=== PATIENT | male | born 1945 | race Caucasian/White ===

== ENCOUNTER 2017-02-14 19:07 | Observation (INO) | payer OTHER ==
[~2017-02-14] VITALS: Ht 180.3 cm; Wt 94.3 kg
[~2017-02-14 19:07] MED LIST: ARICEPT10 M1 PO; ASPIRIN EC81 M1 PO; ATORVASTATIN CA80 M1 PO; BUPROPION XL300 M1 PO; CLARITIN10 M1 PO; FLUDROCORTISON0.1 M1 PO; LIPITOR80 MG PO; MELATONIN3 M4 PO; NEUPRO1 MG/24 HR TD; NOVOLOG100 UNIT/2; Nitro-Bid TOP; OXYCODONE HCL5 M2 PO; PANTOPRAZOLE SO40 M1 PO; SPIRIVA18 MCG INH; TOPROL XL 25MG25 MG PO; TOPROL XL25 M1 PO; XALATAN2.5 ML OU
--- NOTE | 2017-02-14 19:33 | NUR ---
71M WITH SOB UNRELIEVED BY ALBUTEROL, SPIRIVA AND SYMBACORT. REPORTS HAVING AN UNCOMFORTABLE FEELING IN "THE W SHAPE OF MY CHEST" THAT FEELS HOT. REPORTS SYMPTOMS HAVE BEEN ONGOING FOR 3-4 DAYS. REPORTS WORSENING FATIGUE AND INABILITY TO GET AROUND AT HOME. HX PARKINSONS AND COPD
--- NOTE | 2017-02-14 20:09 | ED DYSPNEA/ASTHMA COMPLAINT ---
History of Present Illness General Chief Complaint: Dyspnea (COPD, CHF, Other) Stated Complaint: SOB, HX OF COPD Source: patient Exam Limitations: no limitations Vital Signs & Intake/Output Vital Signs & Intake/Output Vital Signs Date Time Temp Pulse Resp B/P B/P Pulse O2 O2 Flow FiO2 Mean Ox Delivery Rate 02/14 2223 97.6 57 18 127/60 97 Nasal 2.5L Cannula 02/15 2220 Room Air 02/14 2122 59 118/67 02/15 2116 100/57 02/14 2115 98 02/14 2107 95/56 02/14 1925 97.3 62 16 160/84 95 Room Air Allergies Coded Allergies: morphine (Mild, RASH, ITCHY 02/14/17) Reconcile Medications Albuterol Sulfate (Proair Hfa) 90 MCG HFA.AER.AD 2 PUF INH PRN DYSPNEA ( Reported) Amlodipine (Norvasc) 2.5 MG TABLET 1 TAB PO DAILY HEART/BP (Reported) Aspirin (Ecotrin*) 81 MG TABLET.DR 1 TAB PO DAILY HEART/BLOOD (Reported) Atorvastatin Calcium 80 MG TABLET 0.5 TAB PO 1700 CHOLESTEROL (Reported) Budesonide/Formoterol Fumarate (Symbicort 80-4.5 Mcg Inhaler) 80 MCG-4.5 MCG/ ACTUATION HFA.AER.AD 2 PUF INH PRN SOB (Reported) Bupropion HCl (Bupropion XL) 300 MG TAB.ER.24H 1 TAB PO QAM DEPRESSION ( Reported) Donepezil HCl (Aricept) 10 MG TABLET 1 TAB PO QAM MEMORY (Reported) Fludrocortisone Acetate 0.1 MG TABLET 0.5 TAB PO DAILY ORTHOSTATIC HYPOTENSION (Reported) Insulin Aspart (Novolog) (Unknown Strength) VIAL (Unknown Dose) DIABETES - PUMP (Reported) Lactobacillus Acidophilus (Probiotic) 10 BILLION CELL CAPSULE 1 CAP PO DAILY PROBIOTIC (Reported) Latanoprost (Xalatan) 0.005 % DROPS 1 GTT OU QPM GLAUCOMA (Reported) Loratadine (Claritin) 10 MG TABLET 1 TAB PO DAILY ALLERGIES (Reported) Melatonin 3 MG TABLET 2 TAB PO QPM SLEEP (Reported) Metoprolol Succ XL (Toprol XL) 25 MG TAB.ER.24H 0.5 TAB PO QAM BP (Reported) Oxycodone HCl 5 MG CAPSULE 1 CAP PO Q6HR PRN PAIN Pantoprazole Sodium 40 MG TABLET. 1 TAB PO DAILY GI (Reported) Rotigotine (Neupro) 1 MG/24 HOUR PATCH.TD24 1 PATCH TOP QAM PARKINSONS ( Reported) Tiotropium [place] (Spiriva) 18 MCG CAP.W.DEV 1 CAP INH QAM COPD (Reported) Triage Note: 71M WITH SOB UNRELIEVED BY ALBUTEROL, SPIRIVA AND SYMBACORT. REPORTS HAVING AN UNCOMFORTABLE FEELING IN "THE W SHAPE OF MY CHEST" THAT FEELS HOT. REPORTS SYMPTOMS HAVE BEEN ONGOING FOR 3-4 DAYS. REPORTS WORSENING FATIGUE AND INABILITY TO GET AROUND AT HOME. HX PARKINSONS AND COPD Triage Nurses Notes Reviewed? yes Onset: Gradual Duration: day(s):, waxing and waning Timing: recent history Severity: moderate Activities at Onset: "Symptoms began after I laquered the floor a week ago." Prior Episodes/Possible Cause: occasional episodes Modifying Factors: Improves With: rest, other ("cool air helps"). Associated Symptoms: shortness of breath. HPI: 71 yo gentleman h/o copd, mi, cad, diabetes, parkinson's presents with one week of progressive dyspnea and a "W" shaped sensation of burning across the front of his chest. He is unable to characterize a number "because it is not pain... it's really burning." "When I take a deep breath, it feels like only 1/3 of my breath gets in." He notes that he gets very winded with minimal exertion. Past History Travel History Traveled to [place] past 21 day No Medical History Any Pertinent Medical History? 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 No Review of Systems Review of Systems Constitutional: Reports: no symptoms. EENTM: Reports: no symptoms. Respiratory: Reports: no symptoms. Cardiovascular: Reports: no symptoms. GI: Reports: no symptoms. Genitourinary: Reports: no symptoms. Musculoskeletal: Reports: no symptoms. Skin: Reports: no symptoms. Neurological/Psychological: Reports: no symptoms. Hematologic/Endocrine: Reports: no symptoms. Immunologic/Allergic: Reports: no symptoms. All Other Systems: Reviewed and Negative Physical Exam Physical Exam General Appearance: well developed/nourished, mild distress Head: atraumatic, normal appearance Eyes: Bilateral: normal appearance. Ears, Nose, Throat: normal pharynx, normal ENT inspection Neck: normal inspection, supple, full range of motion Respiratory: chest non-tender, diminished breath sounds Cardiovascular: regular rate/rhythm Gastrointestinal: normal bowel sounds, soft, non-tender Extremities: normal inspection, normal capillary refill, normal range of motion, no edema Neurologic/Psych: no motor/sensory deficits, awake, alert, oriented x 3 Skin: intact, normal color, warm/dry Core Measures ACS in differential dx? Yes ASA ordered for poss ACS? Yes-ordered Severe Sepsis Present: No Septic Shock Present: No Progress Differential Diagnosis: asthma, AMI, bronchitis, costochondritis, CHF, COPD, musculoskeletal pain, pulmonary embolism, pneumonia Plan of Care: Orders Procedure Date/time Status Nothing by Mouth 02/15 B Active Patient Data 02/14 2235 Active Saline Lock 02/[address] in observation 02/14 2218 Active Misc Message 02/14 2218 Active ED Holding Orders 02/14 2218 Active Vital Signs 02/14 2218 Active Code Status 02/14 2218 Active Intake & Output 02/14 2155 Active TROPONIN LEVEL 02/14 1925 Complete D-DIMER 02/14 1925 Complete COMPREHENSIVE METABOLIC PANEL 02/14 1925 Complete CBC WITHOUT DIFFERENTIAL 02/14 1925 Complete EKG 02/14 191 Active Current Medications Sig/Luiza Start time Last Medication Dose Stop Time Status Admin Prednisone 40 MG ONCE ONE 02/14 2230 UNVr 02/14 2258 Laboratory Tests 02/14/17 2020: Anion Gap 9, Estimated GFR > 60, BUN/Creatinine Ratio 21.8, Glucose 299 H, Calcium 9.3, Total Bilirubin 0.8, AST 23, ALT 41, Alkaline Phosphatase 74, Troponin I < 0.01, Total Protein 7.3, Albumin 4.2, Globulin 3.1, Albumin/ Globulin Ratio 1.4, D-Dimer High Sensitivty 339 H, CBC w Diff NO MAN DIFF REQ, RBC 4.63 L, MCV 94.6 H, MCH 31.3 H, RDW 13.7, MPV 9.0, Gran % 67.6, Lymphocytes % 21.4, Monocytes % 7.9, Eosinophils % 3.0, Basophils % 0.1, Absolute Granulocytes 3.7, Absolute Lymphocytes 1.2, Absolute Monocytes 0.4, Absolute Eosinophils 0.2, Absolute Basophils 0, PUBS MCHC 33.1 Diagnostic Imaging: Viewed by Me: Radiology Read. Discussed w/RAD: Radiology Read. Radiology Impression: PATIENT: REYNALDO LORA PRESENT AGE: 71 PATIENT ACCOUNT NO: [id number] : 47 LOCATION: [facility] ORDERING PHYSICIAN: AYAKA MONTGOMERY MD SERVICE DATE: 02/14/17 EXAM TYPE: RAD - XRY-PORTABLE CHEST XRAY EXAMINATION: XR PORTABLE CHEST CLINICAL INFORMATION: Dyspnea. COMPARISON: Chest 08/13/2015 TECHNIQUE: Portable frontal view of the chest was obtained. 7:36 PM FINDINGS: Linear atelectasis and/or infiltrate at the right costophrenic angle. There is linear scarring at left lung base which is unchanged since 08/13/2015. No pulmonary vascular congestion. No pleural effusion. Heart size is normal. The cardiac and mediastinal contours are normal. Orthopedic plate and screw at lower cervical spine. IMPRESSION: Linear atelectasis and/or infiltrate at right costophrenic angle. DICTATED BY: NICOLE LOPEZ MD DATE/TIME DICTATED:02/14/172028 OUTSIDE CUTTER:LAYTON DATE/TIME TRANSCRIBED:02/14/172028 CONFIDENTIAL, DO NOT COPY WITHOUT APPROPRIATE AUTHORIZATION. <Electronically signed in Other Vendor System> SIGNED BY: NICOLE LOPEZ MD 02/14/172033, ct chest angio... NO PE...atelectasis... full report below. CXR Impression: linear atelectasis... see above for full report. Initial ED EKG: normal axis, normal intervals, normal p-waves, normal QRS complex, normal sinus rhythm Comments: PATIENT: REYNALDO LORA PRESENT AGE: 71 PATIENT ACCOUNT NO: [id number] : 47 LOCATION: [facility] ORDERING PHYSICIAN: AYAKA MONTGOMERY MD SERVICE DATE: 02/14/17 EXAM TYPE: CAT - CTA CHEST-PULMONARY EMBOLISM EXAMINATION: CT ANGIOGRAM OF THE CHEST WITH AND WITHOUT CONTRAST (CT PULMONARY ANGIOGRAM FOR PE) CLINICAL INFORMATION: dyspnea, chest burning COMPARISON: Chest x-ray from earlier today TECHNIQUE: Prior to contrast administration, noncontrast localization images were obtained. Subsequently, multidetector volumetric imaging was performed from the thoracic inlet to below the diaphragms following the administration of 120 mL Optiray 350 intravenous contrast. No contrast reaction reported. Sagittal, coronal, and MIP oblique sagittal reformatted images were obtained on the CT workstation, uploaded to PACS, and reviewed. Total exam dose-length product 551.29 mGy-cm. FINDINGS: QUALITY OF STUDY/CONTRAST BOLUS: Satisfactory PULMONARY ARTERIES: No central or segmental pulmonary emboli. THORACIC AORTA: No aneurysm or dissection. Scattered atherosclerotic calcifications are present. LUNG: There are curvilinear regions of opacity at the lung bases, consistent with subsegmental atelectasis. No additional consolidation is seen. There is a 4 mm left fissural nodule on image 250/519, suggestive of a lymph node and statistically likely benign. PLEURA: No pleural effusion or pneumothorax. MEDIASTINUM: The visualized thyroid gland is unremarkable. There are subcentimeter mediastinal lymph nodes within the range of normal variation. Cardiac size is within normal limits; no pericardial effusion. Coronary artery calcifications are present. No evidence of septal bowing or right heart strain. CHEST WALL/AXILLA: No axillary or internal mammary lymphadenopathy. OSSEOUS STRUCTURES: Multilevel endplate osteophytes are noted in the spine. There is a healed posterior left 10th rib fracture. UPPER ABDOMEN: Unremarkable. No reflux of contrast into the hepatic veins to suggest elevated right heart pressures. IMPRESSION: 1. No pulmonary embolus identified. 2. Bibasilar subsegmental atelectasis. 3. Coronary artery calcifications. Correlation with cardiac risk factors is recommended. VTE: negative DICTATED BY: LACI RAUSCH MD DATE/TIME DICTATED:02/14/172312 OUTSIDE CUTTER:LAYTON DATE/TIME TRANSCRIBED:02/14/172312 CONFIDENTIAL, DO NOT COPY WITHOUT APPROPRIATE AUTHORIZATION. <Electronically signed in Other Vendor System> SIGNED BY: LACI RAUSCH MD 02/14/17 2326 Departure Departure Disposition: STILL A PATIENT Condition: Stable Clinical Impression Primary Impression: Bronchospasm Secondary Impressions: Chest pain as manifestation of blood transfusion reaction Referrals: FRANKLIN HAYNES MD (PCP/Family) Departure Forms: Customer Survey General Discharge Information Comments 02/14/17, 22:10... discussed at length with patient and family.... +dimer... will check cta Pt feels better after nitro and duo neb with supplemental o2... pt understands staying overnight, serial troponins, cards eval in AM. Observation Note Spoke With: NORMA DICKERSON,RUBIO Gibson Physician Advisor Notified: COURT SADLER DO Place Patient In: Non-ED OBS Care Area Rationale for Observation: My rational for observation is as follows . pt with nitro and duoneb responsive dyspnea/chest burning.... pt with negative trop, +dimer... will check cta, serial troponins w/ ekg. Pt is high risk for cardiac event: pt has diabetes, prior RI, CAD not amenable to stents. Critical Care Note Critical Care Note Critical Care Time: 30-74 min
--- NOTE | 2017-02-14 20:23 | NUR ---
BLOOD DRAWN AND SENT TO LAB (BLUE,SST,PINK,LAV)
[2017-02-14] MEDS ORDERED: NEUPRO1 EAC4 TOP (20:25)
[2017-02-14] MEDS ORDERED: PROAIR HFA8.5 GM INH (20:25)
[2017-02-14 20:28] LABS: ABSOLUTE BASOPHIL COUNT 0 /CUMM (0.0-0.2); ABSOLUTE EOSINOPHIL COUNT 0.2 /CUMM (0.0-0.7); ABSOLUTE GRANULOCYTE CT 3.7 /CUMM (1.4-6.5); ABSOLUTE LYMPH COUNT 1.2 /CUMM (1.2-3.4); ABSOLUTE MONOCYTE COUNT 0.4 /CUMM (0.10-0.60); BASOPHIL % 0.1 % (0.0-2.0); GRANULOCYTE % 67.6 % (42.2-75.2); HEMATOCRIT 43.8 % (42-52); MEAN CORPUSCULAR HGB 31.3 PG (27.0-31.0); MEAN CORPUSCULAR HGB CONC 33.1 G/DL (33.0-37.0); MEAN CORPUSCULAR VOLUME 94.6 FL (80.0-94.0); PLATELET COUNT 194 /CUMM (130-400); RBC DISTRIBUTION WIDTH 13.7 % (11.5-14.5); RED BLOOD CELL CT 4.63 /CUMM (4.70-6.10); WHITE BLOOD CELL COUNT 5.4 /CUMM (4.8-10.8)
[2017-02-14] MEDS ORDERED: SYMBICORT 80-10.2 GM INH (20:28)
[2017-02-14] MEDS ORDERED: NORVASC2.5 M1 PO (20:31)
[2017-02-14] MEDS ORDERED: PROBIOTIC1 EACH PO (20:31)
--- NOTE | 2017-02-14 20:34 | RADIOLOGY REPORT ---
EXAMINATION: XR PORTABLE CHEST CLINICAL INFORMATION: Dyspnea. COMPARISON: Chest 08/13/2015 TECHNIQUE: Portable frontal view of the chest was obtained. 7:36 PM FINDINGS: Linear atelectasis and/or infiltrate at the right costophrenic angle. There is linear scarring at left lung base which is unchanged since 08/13/2015. No pulmonary vascular congestion. No pleural effusion. Heart size is normal. The cardiac and mediastinal contours are normal. Orthopedic plate and screw at lower cervical spine. IMPRESSION: Linear atelectasis and/or infiltrate at right costophrenic angle.
--- NOTE | 2017-02-14 20:34 | NUR ---
PT TO ROOM 7, BLOOD OBTAINED BY [facility]. AT BEDSIDE. RESPIRATORY CALLED FOR TX
--- NOTE | 2017-02-14 21:03 | NUR ---
PT PLACED ON PAPER PRODUCTION ENGINEER, NSR. IV EST #22 IN RW. RESPIRATORY AT BEDSIDE FOR TX. PT MEDICATED WITH 0.4SL NITRO AND 325MG ASPIRIN PER EMAR
--- NOTE | 2017-02-14 21:15 | NUR ---
PT PRESSURE 95/56 AFTER SL NITRO. NS INITATED. PRESSURE UP TO 100/57.
--- NOTE | 2017-02-14 22:09 | NUR ---
PT REQUESTING BLANKETS, PROVIDED FOR COMFORT. PT REMAINS FREE OF ANY DIZZINESS/LIGHTHEADEDNESS. REPORTS COMPLETE RELIEF OF CHEST S/S "I THINK THE BREATHING TREATMENT REALLY HELPED, I CAN FINALLY GET AIR IN MY LUNGS"
--- NOTE | 2017-02-14 22:37 | NUR ---
SECOND IV EST #20 IN LAC. PT TO CAT SCAN VIA STRETCHER
--- NOTE | 2017-02-14 22:55 | NUR ---
PT FROM CAT SCAN VIA STRETCHER
--- NOTE | 2017-02-14 22:58 | NUR ---
PT PLACED BACK ON CARTRIDGE FEEDER, NAD. PT MEDICATED WITH 40MG PREDNISONE PER EMAR
--- NOTE | 2017-02-14 23:26 | CT SCAN REPORT ---
EXAMINATION: CT ANGIOGRAM OF THE CHEST WITH AND WITHOUT CONTRAST (CT PULMONARY ANGIOGRAM FOR PE) CLINICAL INFORMATION: dyspnea, chest burning COMPARISON: Chest x-ray from earlier today TECHNIQUE: Prior to contrast administration, noncontrast localization images were obtained. Subsequently, multidetector volumetric imaging was performed from the thoracic inlet to below the diaphragms following the administration of 120 mL Optiray 350 intravenous contrast. No contrast reaction reported. Sagittal, coronal, and MIP oblique sagittal reformatted images were obtained on the CT workstation, uploaded to PACS, and reviewed. Total exam dose-length product 551.29 mGy-cm. FINDINGS: QUALITY OF STUDY/CONTRAST BOLUS: Satisfactory PULMONARY ARTERIES: No central or segmental pulmonary emboli. THORACIC AORTA: No aneurysm or dissection. Scattered atherosclerotic calcifications are present. LUNG: There are curvilinear regions of opacity at the lung bases, consistent with subsegmental atelectasis. No additional consolidation is seen. There is a 4 mm left fissural nodule on image 250/519, suggestive of a lymph node and statistically likely benign. PLEURA: No pleural effusion or pneumothorax. MEDIASTINUM: The visualized thyroid gland is unremarkable. There are subcentimeter mediastinal lymph nodes within the range of normal variation. Cardiac size is within normal limits; no pericardial effusion. Coronary artery calcifications are present. No evidence of septal bowing or right heart strain. CHEST WALL/AXILLA: No axillary or internal mammary lymphadenopathy. OSSEOUS STRUCTURES: Multilevel endplate osteophytes are noted in the spine. There is a healed posterior left 10th rib fracture. UPPER ABDOMEN: Unremarkable. No reflux of contrast into the hepatic veins to suggest elevated right heart pressures. IMPRESSION: 1. No pulmonary embolus identified. 2. Bibasilar subsegmental atelectasis. 3. Coronary artery calcifications. Correlation with cardiac risk factors is recommended. VTE: negative
--- NOTE | 2017-02-14 23:28 | NUR ---
PT REQUESTING SOMETHING TO EAT, HOUSE STAFF PAGED. AWAITING DIET ORDERS.
--- NOTE | 2017-02-14 23:44 | NUR ---
HOUSE STAFF AT BEDSIDE FOR PT EVAL
--- NOTE | 2017-02-15 00:16 | NUR ---
PT OKAY TO EAT PER HOUSE STAFF. PT GIVEN SANDWICH.
--- NOTE | 2017-02-15 00:31 | NUR ---
TROPONIN OBTAINED AND SENT TO LAB
--- NOTE | 2017-02-15 00:33 | NUR ---
PT MEDICATED WTIH 250MG ZITHROMAX PER EMAR
--- NOTE | 2017-02-15 01:05 | History & Physical ---
[place] 02/15/17 0105: General Information and HPI MD Statement: I have seen and personally examined REYNALDO LORA and documented this H&P. The patient is a 71 year old M who presented with a patient stated chief complaint of burning of chest and shortness of breath on exertion for last 1 week.[]. History of Present Illness: 71 YO M non smoker with PMH of HTN, hyperlipidemia, CAD, orthostatic hypertension, COPD not on home oxygen, uncontrolled diabetes mellitus on insulin pump, diabetic neuropathy, Parkinson's disease, fibromyalgia, depression and back pain s/p spine surgery presented with CC of burning chest pain and shortness of breath on exertion for last 1 week. Patient reported that he had a burning in the chest and has difficulty in breathing for last 1 week with dry cough and shortness of breath on exertion that preventing him to get out of bed for last 1 week. Patient denied any palpitation, dizziness, headache, fever, nausea, vomiting, sore throat, abdominal pain, dysuria, loss of consciousness and sweating. Patient reported history of cardiac catheterization that showed narrowing of coronary artery but there is no history of stent placement. In ED we talk about to take off the insuline pump and shift the patient to insuline according to sliding scale but patient didn't agreed to that. In ED patient was nebulized, prednisone, nitroglycerin and now he is feeling better An initial troponin was negative and EKG didn't show any change. Chest x-ray was normal. CT chest was ordered that was negative for PE but there was basilar atelectasis bilaterally and calcification of coronary artery. Labs: Hb 14.5, plt 194, D-dimer 339, k 5.4, Na 140, BUN 24, Cr 1.1, glucose 299, troponin 0.01, On Examination: Neuro: sensation: imapired sensation in leg B/L, impaired sensations in arm B/L and also on chest POwer; 5/5 Xb/l x4 CN 3-12 Intact ABD: NBS, nontender CHEST: CTA, decreased air entry bilaterally HEENT: PERRLA, EOMI, Atraumatic neck Allergies/Medications Allergies: Coded Allergies: morphine (Mild, RASH, ITCHY 02/14/17) Past History Travel History Traveled to [place] past 21 day No Medical History Neurological: Parkinson's disease, TIA EENT: glaucoma Cardiovascular: hypertension, hyperlipidemia, myocardial infarction, PERIODIC HYPOTENSION Respiratory: COPD Gastrointestinal: NONE Hepatic: NONE Renal: NONE Musculoskeletal: NONE, fibromyalgia Psychiatric: anxiety, depression Endocrine: diabetes Blood Disorders: NONE Cancer(s): NONE 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 EENTM: Reports: no symptoms. Cardiovascular: Reports: chest pain. Respiratory: Reports: cough, short of breath. GI: Reports: no symptoms. Genitourinary: Reports: no symptoms. Musculoskeletal: Reports: no symptoms. Skin: Reports: no symptoms. Neurological/Psychological: Reports: numbness, tremors. Hematologic/Endocrine: Reports: no symptoms. Immunologic/Allergic: Reports: no symptoms. Exam & Diagnostic Data Last 24 Hrs of Vital Signs/I&O Vital Signs Date Time Temp Pulse Resp B/P B/P Pulse O2 O2 Flow FiO2 Mean Ox Delivery Rate 02/15 0312 98.2 56 18 130/80 94 Room Air 02/15 0136 96.7 60 18 116/59 92 Room Air 02/14 2223 97.6 57 18 127/60 97 Nasal 2.5L Cannula 02/14 2220 Room Air 02/14 2122 59 118/67 02/14 2116 100/57 02/14 2115 98 02/14 2107 95/56 02/14 1925 97.3 62 16 160/84 95 Room Air Intake & Output 02/15 0800 02/15 0000 02/14 1600 Intake Total 1000 Output Total Balance 1000 Intake, IV 1000 Patient 208 lb 208 lb Weight Weight Reported by Patient Measurement Method Physical Exam General Appearance Alert, Oriented X3, Cooperative, No Acute Distress Skin No Rashes Skin Temp/Moisture Exam: Warm/Dry HEENT Atraumatic, PERRLA, EOMI Neck Supple Cardiovascular Regular Rate, Normal S1, Normal S2, No Murmurs Lungs Clear to Auscultation, decreased breath sounds bilaterally Abdomen Normal Bowel Sounds, Soft, No Tenderness Neurological Normal Speech, Strength at 5/5 X4 Ext, Normal Tone, Cranial Nerves 3-12 NL (decreased sensations B/L legs), decreased sensations b/l arms Assessment/Plan Assessment: 71 YO M non smoker with PMH of HTN, hyperlipidemia, myocardial infarction, orthostatic hypertension, COPD not on home oxygen, uncontrolled diabetes mellitus on insulin pump, Parkinson's disease, fibromyalgia and depression presented with CC of burning chest pain and shortness of breath on exertion for last 1 week. In ED patient was assessed for: COPD exacerbation ACS PE Pneumonia CHF ATYPICAL CHEST PAIN: Admit in telemetry Serial EKG and troponin level Echocardiogram in the morning Consult with therapy coordinator COPD EXACERBATION: Solu-Medrol 60 mg daily TRC treatment Azithromycin Sputum culture Legionella urine antigen pulmonary consult DM: continue insuline pump diabetic diet Accu-check Endo consult Parkinson: continue medication continue all other home medications. DVT Prophylaxis: Mechanical and Heparin CODE Status: full code Core Measures/Miscellaneous Acute Coronary Syndrome ACS Diagnosis: No Cerebrovascular Accident CVA/TIA Diagnosis: No Congestive Heart Failure CHF Diagnosis: No VTE (View Protocol) VTE Risk Factors: Age > 40 No [facility] VTE prophylaxis d/t: No contraindications No VTE Pharm Prophylaxis d/t: No contraindications VTE Diagnosis: No VTE Type: NONE VTE Confirmed by (Test): NONE Sepsis (View Protocol) Severe Sepsis Present: No Septic Shock Septic Shock Present: No Miscellaneous Documentation Attending Case Discussed With: NORMA DICKERSON[facility] 0106: General Information and HPI Allergies/Medications Home Med list Albuterol Sulfate (Proair Hfa) 90 MCG HFA.AER.AD 2 PUF INH PRN DYSPNEA ( Reported) Amlodipine (Norvasc) 2.5 MG TABLET 1 TAB PO DAILY HEART/BP (Reported) Aspirin (Ecotrin*) 81 MG TABLET.DR 1 TAB PO DAILY HEART/BLOOD (Reported) Atorvastatin Calcium 80 MG TABLET 0.5 TAB PO 1700 CHOLESTEROL (Reported) Budesonide/Formoterol Fumarate (Symbicort 80-4.5 Mcg Inhaler) 80 MCG-4.5 MCG/ ACTUATION HFA.AER.AD 2 PUF INH PRN SOB (Reported) Bupropion HCl (Bupropion XL) 300 MG TAB.ER.24H 1 TAB PO QAM DEPRESSION ( Reported) Donepezil HCl (Aricept) 10 MG TABLET 1 TAB PO QAM MEMORY (Reported) Fludrocortisone Acetate 0.1 MG TABLET 0.5 TAB PO DAILY ORTHOSTATIC HYPOTENSION (Reported) Insulin Aspart (Novolog) (Unknown Strength) VIAL (Unknown Dose) DIABETES - PUMP (Reported) Lactobacillus Acidophilus (Probiotic) 10 BILLION CELL CAPSULE 1 CAP PO DAILY PROBIOTIC (Reported) Latanoprost (Xalatan) 0.005 % DROPS 1 GTT OU QPM GLAUCOMA (Reported) Loratadine (Claritin) 10 MG TABLET 1 TAB PO DAILY ALLERGIES (Reported) Melatonin 3 MG TABLET 2 TAB PO QPM SLEEP (Reported) Metoprolol Succ XL (Toprol XL) 25 MG TAB.ER.24H 0.5 TAB PO QAM BP (Reported) Oxycodone HCl 5 MG CAPSULE 1 CAP PO Q6HR PRN PAIN Pantoprazole Sodium 40 MG TABLET.DR 1 TAB PO DAILY GI (Reported) Prednisone 10 MG TABLET 1 TAB PO DAILY COPD EXACERBATION Rotigotine (Neupro) 1 MG/24 HOUR PATCH.TD24 1 PATCH TOP QAM PARKINSONS ( Reported) Tiotropium [place] (Spiriva) 18 MCG CAP.W.DEV 1 CAP INH QAM COPD (Reported) Assessment/Plan As Ranked By This Provider Problem List: 1. COPD (chronic obstructive pulmonary disease) Core Measures/Miscellaneous Miscellaneous Documentation Primary Care Physician: FRANKLIN HAYNES MD Patient sees these Specialists dr sagastume Level of Patient Care: Telemetry Resident Review Statement Resident Statement: examined this patient, discussed with event planning intern, agreed with event planning intern, amended to note Other Findings: 71 YO man with PMH of DM on insulin PUMP, parkinsons, alzehmers, CAD ( no stent) , DM neuropathy, cervical and lumabr spinal surgery, depression, orthostatic hyotension, COPD not on oyxgen came ith cc of burning of the chest, shortness of breath mostly on exertion and not feeling well for 1 week. Patient's reports he has a W-shaped burning in his lower chest with difficulty breathing especially deep breathing which has been going on for 1 week with mild dry cough and shortness of breath on exertion which rendered him on bed for most of the week. Patient reported that he lanqured the floor, on week ago first time without using any mask. Patient denies any fevers, headache, nausea, vomiting, abdominal pain, palpitations. In last admission patient went to [facility] for cardiac catheterization which showed some CAD but no stent was put in. Upon arrival patient got nebulizer treatment, prednisone, nitroglycerin (which dropped his blood pressure) and he felt better now. Initial troponin was negative and EKG did not show any acute ST-T changes.CXR did not show nay acute pathology. D-dimer was elevated and CT was ordered which was negative for PE however it showed atelectasis on both of the bases of the lungs/ and a lung nodule. Vital signs are unremarkable were several omental upon visiting patient was unremarkable good O2 saturation. Patient does have a raspy voice with changes from his baseline. NO Sick contacts, no recent travel. Physical exam Alert and oriented 3 in no distress HEENT Atraumatic, PERRLA, EOMI Cardiovascular Regular Rate, Normal S1, Normal S2 Lungs decreased breath sound bilaterally, no wheezing Abdomen Normal Bowel Sounds, Soft, No Tenderness, No Hepatospenomegaly, No Masses Neurological Normal Gait, Normal Speech, Strength at 5/5 X4 Ext, Sensation Intact Extremities No Clubbing, No Cyanosis, No Edema,Normal Pulses glucose 299, K 5.4, BUN 24 EKG normal sinus rhythm, 60, KS 200, QTC 10/24/2009, no acute ST-T changes #Assessment Atypical chest pain Shortness of breath History of CAD History of diabetes on insulin pump History of Parkinson's/Alzheimer's History of COPD History hypertension History of depression History of orthostatic hypotension History of cervical spine and lumbar spine surgery #plan: -Atypical ACS versus COPD exacerbation -observe 24 h in telemetry, EKG and troponin 3, echocardiogram in the morning, patient will be seen by Dr. Sagastume or Norma -Continue insulin pump, diabetic diet, Accu-Cheks, endo consult in am -solumedrol 60 mg daily, TRC treatment, azithromycin 5 doses try to get a sputum culture, urine Legionella and strep ag, pulm consult with -As the patient to bring his NEUPRO for his Parkinson's, continue melatonin, metoprolol, oxycodone, loratadine, Xalatan, PPI, aspirin, statin,norvasc, fludrocortisone -DVT prophylaxis is mechanical and subcutaneous heparin, full code, Tylenol and oxycodone for pain, diabetic diet SHIMON SCHERER MD 02/15/17 0956: Attending Review Statement Attending Statement Attending MD Statement: examined this patient, discuss w/resident/PA/TURPENTINER, agreed w/resident/PA/TURPENTINER, discussed with family, reviewed EMR data (avail), discussed with nursing, reviewed images, amended to note Attending Assessment/Plan: Patient is a 71-year-old male with history of cardiac catheterization in July 2015 showing no significant epicardial CAD he presented with complaint of chest discomfort and burning. In the emergency department he was treated with nebulizer and supplemental glycerin, and the symptoms resolved. He was feeling well overnight and this morning. Review of systems: No fever. No chills. No rash. No tremor. No melena. Vital Signs Date Time Temp Pulse Resp B/P B/P Pulse O2 O2 Flow FiO2 Mean Ox Delivery Rate 02/15 0931 63 130/80 02/15 0931 63 130/80 02/15 0611 95 Room Air Room Air 02/15 0605 97.8 63 18 130/80 92 Room Air 02/15 0312 98.2 56 18 130/80 94 Room Air 02/15 0300 94 Room Air 02/15 0136 96.7 60 18 116/59 92 Room Air 02/14 2223 97.6 57 18 127/60 97 Nasal 2.5L Cannula 02/14 2220 Room Air 02/14 2122 59 118/67 02/14 2116 100/57 02/14 2115 98 02/14 2107 95/56 02/14 1925 97.3 62 16 160/84 95 Room Air Intake & Output 02/15 1600 02/15 0800 02/15 0000 Intake Total 200 1000 Output Total 400 Balance -200 1000 Intake, IV 1000 Intake, Oral 200 Output, Urine 400 Patient 208 lb 208 lb Weight Weight Reported by Patient Measurement Method Gen: The patient is in no acute distress HEENT: Normal nose, ears, and oropharynx. Pupils equal bilaterally. Conjunctiva normal. Neck: Supple with no JVD, no masses, and no thyromegaly Lungs: Clear to auscultation with normal respiratory effort Heart: RRR, S1, S2, no murmurs. No peripheral edema, 2+ pulses in the lower extremities bilaterally Abdomen: Soft, nontender, no masses. No hepatomegaly. No splenomegaly Extremities: No clubbing or cyanosis. Normal muscle strength in the upper and lower extremities Skin: Normal skin turgor with no skin ulcers or lesions noted. Neuro: Cranial nerves intact. Sensation intact Psych: Alert and oriented 3 with appropriate affect EKG tracing is independently reviewed, and reveals normal sinus rhythm at 60, normal EKG Chest x-ray: Linear atelectasis and/or infiltrate at right costophrenic angle. CTA Chest: 1. No pulmonary embolus identified. 2. Bibasilar subsegmental atelectasis. 3. Coronary artery calcifications. Correlation with cardiac risk factors is recommended. Assessment: * Discharge to home. * Prednisone taper * Follow endocrine recommendations * Follow up with Dr. Schmidt, Dr. Whitehead. and Dr. Sagastume
--- NOTE | 2017-02-15 01:47 | NUR ---
PT ASSIGNED TO [facility] [phone]
--- NOTE | 2017-02-15 02:27 | NUR ---
REPORT GIVEN TO SHEFALI PHAN
--- NOTE | 2017-02-15 02:41 | NUR ---
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
--- NOTE | 2017-02-15 02:48 | NUR ---
PER HOUSE STAFF OKAY FOR PTS INSULIN PUMP TO REMAIN ACTIVE AND ON PT. TELE NURSE SYLVESTER SHAH.
[2017-02-15 03:12] VITALS: BP 130/80
[2017-02-15 06:05] VITALS: BP 130/80
[2017-02-15 08:39] LABS: ABSOLUTE BASOPHIL COUNT 0 /CUMM (0.0-0.2); ABSOLUTE EOSINOPHIL COUNT 0 /CUMM (0.0-0.7); ABSOLUTE GRANULOCYTE CT 5.8 /CUMM (1.4-6.5); ABSOLUTE LYMPH COUNT 0.6 /CUMM (1.2-3.4); ABSOLUTE MONOCYTE COUNT 0.1 /CUMM (0.10-0.60); BASOPHIL % 0 % (0.0-2.0); EOSINOPHIL % 0 % (0-5); HEMATOCRIT 42.4 % (42-52); MEAN CORPUSCULAR HGB 31.5 PG (27.0-31.0); MEAN CORPUSCULAR HGB CONC 33.5 G/DL (33.0-37.0); MEAN CORPUSCULAR VOLUME 94.2 FL (80.0-94.0); MEAN PLATELET VOLUME 9.8 FL (7.4-10.4); RBC DISTRIBUTION WIDTH 13.3 % (11.5-14.5); WHITE BLOOD CELL COUNT 6.5 /CUMM (4.8-10.8)
--- NOTE | 2017-02-15 08:46 | PN-Observation ---
Assessment/Plan Assessment: 71 YO M non smoker with PMH of HTN, hyperlipidemia, myocardial infarction, orthostatic hypertension, COPD not on home oxygen, uncontrolled diabetes mellitus on insulin pump, Parkinson's disease, fibromyalgia and depression presented with CC of burning chest pain and shortness of breath on exertion for last 1 week. In ED patient was assessed for:COPD exacerbation,ACS,PE,Pneumonia, CHF #ATYPICAL CHEST PAIN: Continue to monitor in telemetry His CTA showed only coronary artery calcification, no PE Serial EKG and troponin level were normal which rule out ACS Echocardiogram in the morning Dr. Hirsch on board. # COPD EXACERBATION Prednisone taper TRC treatment Azithromycin Sputum culture Legionella urine antigen pulmonary consult #DM: continue insuline pump as per Dr Whitehead diabetic diet Accu-check #Parkinson: continue medication DVT Prophylaxis:Mechanical and Heparin Diet: Diabetic diet CODE Status:full code Problem List: 1. Diabetes mellitus 2. Chest pain, atypical 3. COPD exacerbation 4. Parkinson disease DVT/Prophylaxis: pharmacological Subjective Follow-up For: Atypical chest pain COPD exacerbation Diabetes mellitus Complaints: pain scale (0-10) Tele-Events Since Last Visit: MSIR [id number] Subjective: Transversely examined the patient at bedside was sitting comfortably in bed in no acute distress and reports having no chest pain Review of Systems Constitutional: Denies: no symptoms. Cardiovascular: Denies: chest pain. Respiratory: Denies: cough, orthopnea, short of breath. Gastrointestinal: Denies: abdominal pain, nausea. Genitourinary: Denies: no symptoms. Musculoskeletal: Denies: no symptoms. Objective Last 24 Hrs of Vital Signs/I&O Vital Signs Date Time Temp Pulse Resp B/P B/P Pulse O2 O2 Flow FiO2 Mean Ox Delivery Rate 02/15 1103 Room Air Room Air 02/15 1103 96 Room Air Room Air 02/15 0931 63 130/80 02/15 0931 63 130/80 02/15 0611 95 Room Air Room Air 02/15 0605 97.8 63 18 130/80 92 Room Air 02/15 0312 98.2 56 18 130/80 94 Room Air 02/15 0300 94 Room Air 02/15 0136 96.7 60 18 116/59 92 Room Air 02/14 2223 97.6 57 18 127/60 97 Nasal 2.5L Cannula 02/15 2220 Room Air 02/14 2122 59 118/67 02/15 2116 100/57 02/145 98 02/14 2107 95/56 02/14 1925 97.3 62 16 160/84 95 Room Air Intake & Output 02/15 1600 02/15 0800 02/15 0000 Intake Total 200 1000 Output Total 400 Balance -200 1000 Intake, IV 1000 Intake, Oral 200 Output, Urine 400 Patient 208 lb 208 lb Weight Weight Reported by Patient Measurement Method Physical Exam General Appearance: Alert, Oriented X3, Cooperative, No Acute Distress Skin: No Rashes, No Breakdown, No Significant Lesion Skin Temp/Moisture Exam: Warm/Dry HEENT: Atraumatic, PERRLA, EOMI, Mucous Membr. moist/pink Neck: Supple, No JVD Cardiovascular: Regular Rate, Normal S1, Normal S2, No Murmurs Lungs: Clear to Auscultation, Normal Air Movement Abdomen: Normal Bowel Sounds, Soft, No Tenderness Neurological: Normal Speech, Strength at 5/5 X4 Ext, Normal Tone, Sensation Intact, Cranial Nerves 3-12 NL Extremities: No Clubbing, No Cyanosis, No Edema Vascular: Normal Pulses, Pulses Symmetrical
[2017-02-15 09:31] VITALS: BP 130/80
[2017-02-15 09:58] LABS: GRANULOCYTE % 89.3 % (42.2-75.2); PLATELET COUNT 188 /CUMM (130-400)
--- NOTE | 2017-02-15 10:01 | Cons- Endocrinology ---
General Information and HPI Consulting Request Date of Consult: 02/15/17 Requested By: Medical team Reason for Consult: management of DM type 1 Source of Information: patient, old records Exam Limitations: no limitations History of Present Illness: 71 y/o male with PMH of HTN, hyperlipidemia, CAD, COPD, parkinson's disease, brittle DM type 1 since 1968 on T slim insulin pump and DEXCOM, presented with of burning chest pain and shortness of breath on exertion for last 1 week. He was put on Solumedrol 60 mg iv daily. His am FSG was 97. His insulin pump setting: Basal insulin: midnight 0.8 units per hour 9 am 1.6 units per hour 11 am 2.8 units per hour 3 pm 2.8 units per hour IC ratio 20 grams; insulin sensitivity 35 mg/dl Target of glucose 130 mg/dl Allergies/Medications Allergies: Coded Allergies: morphine (Mild, RASH, ITCHY 02/14/17) Home Med List: Albuterol Sulfate (Proair Hfa) 90 MCG HFA.AER.AD 2 PUF INH PRN DYSPNEA ( Reported) Amlodipine (Norvasc) 2.5 MG TABLET 1 TAB PO DAILY HEART/BP (Reported) Aspirin (Ecotrin*) 81 MG TABLET.DR 1 TAB PO DAILY HEART/BLOOD (Reported) Atorvastatin Calcium 80 MG TABLET 0.5 TAB PO 1700 CHOLESTEROL (Reported) Budesonide/Formoterol Fumarate (Symbicort 80-4.5 Mcg Inhaler) 80 MCG-4.5 MCG/ ACTUATION HFA.AER.AD 2 PUF INH PRN SOB (Reported) Bupropion HCl (Bupropion XL) 300 MG TAB.ER.24H 1 TAB PO QAM DEPRESSION ( Reported) Donepezil HCl (Aricept) 10 MG TABLET 1 TAB PO QAM MEMORY (Reported) Fludrocortisone Acetate 0.1 MG TABLET 0.5 TAB PO DAILY ORTHOSTATIC HYPOTENSION (Reported) Insulin Aspart (Novolog) (Unknown Strength) VIAL (Unknown Dose) DIABETES - PUMP (Reported) Lactobacillus Acidophilus (Probiotic) 10 BILLION CELL CAPSULE 1 CAP PO DAILY PROBIOTIC (Reported) Latanoprost (Xalatan) 0.005 % DROPS 1 GTT OU QPM GLAUCOMA (Reported) Loratadine (Claritin) 10 MG TABLET 1 TAB PO DAILY ALLERGIES (Reported) Melatonin 3 MG TABLET 2 TAB PO QPM SLEEP (Reported) Metoprolol Succ XL (Toprol XL) 25 MG TAB.ER.24H 0.5 TAB PO QAM BP (Reported) Oxycodone HCl 5 MG CAPSULE 1 CAP PO Q6HR PRN PAIN Pantoprazole Sodium 40 MG TABLET.DR 1 TAB PO DAILY GI (Reported) Rotigotine (Neupro) 1 MG/24 HOUR PATCH.TD24 1 PATCH TOP QAM PARKINSONS ( Reported) Tiotropium [place] (Spiriva) 18 MCG CAP.W.DEV 1 CAP INH QAM COPD (Reported) Review of Systems Review of Systems Constitutional: Reports: see HPI. Cardiovascular: Reports: chest pain. Respiratory: Reports: short of breath. GI: Denies: abdominal pain. Hematologic/Endocrine: Denies: polyuria, polydipsia. 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 Surgical History Surgical History: CARDIAC CATH X 3 ([facility] MORE THAN 10 YEARS AGO) MULTIPLE SHOULDER, KNEE, WRIST, JAW, SINUS SURGERIES Psychosocial History Services at Home: None Smoking Status: Never Smoked Exam & Diagnostic Data Last 24 Hrs of Vital Signs/I&O Vital Signs Date Time Temp Pulse Resp B/P B/P Pulse O2 O2 Flow FiO2 Mean Ox Delivery Rate 02/15 0931 63 130/80 02/15 0931 63 130/80 02/15 0611 95 Room Air Room Air 02/15 0605 97.8 63 18 130/80 92 Room Air 02/15 0312 98.2 56 18 130/80 94 Room Air 02/15 0300 94 Room Air 02/15 0136 96.7 60 18 116/59 92 Room Air 02/14 2223 97.6 57 18 127/60 97 Nasal 2.5L Cannula 02/140 Room Air 02/14 2122 59 118/67 02/146 100/57 02/14 2115 98 02/14 2107 95/56 02/14 1925 97.3 62 16 160/84 95 Room Air Intake & Output 02/15 1600 02/15 0800 02/15 0000 Intake Total 200 1000 Output Total 400 Balance -200 1000 Intake, IV 1000 Intake, Oral 200 Output, Urine 400 Patient 208 lb 208 lb Weight Weight Reported by Patient Measurement Method Physical Exam General Appearance: no apparent distress Neck: normal inspection Respiratory: lungs clear Cardiovascular: regular rate/rhythm Gastrointestinal: soft, non-tender Extremities: no edema Labs/John Results: Laboratory Tests 02/15 02/15 02/14 0714 0028 2020 Chemistry Sodium (137 - 145 mmol/L) 140 140 Potassium (3.5 - 5.1 mmol/L) 4.7 5.4 H Chloride (98 - 107 mmol/L) 104 102 Carbon Dioxide (22 - 30 mmol/L) 25 28 Anion Gap (5 - 16) 10 9 BUN (9 - 20 mg/dL) 22 H 24 H Creatinine (0.7 - 1.2 mg/dL) 0.9 1.1 Estimated GFR (>60 ml/min) > 60 > 60 BUN/Creatinine Ratio (7 - 25 %) 24.4 21.8 Glucose (65 - 99 mg/dL) 299 H Calcium (8.4 - 10.2 mg/dL) 9.3 Total Bilirubin (0.2 - 1.3 mg/dL) 0.8 AST (17 - 59 U/L) 23 ALT (21 - 72 U/L) 41 Alkaline Phosphatase (< 127 U/L) 74 Troponin I (<0.11 ng/ml) < 0.01 < 0.01 < 0.01 Total Protein (6.3 - 8.2 g/dL) 7.3 Albumin (3.5 - 5.0 g/dL) 4.2 Globulin (1.9 - 4.2 gm/dL) 3.1 Albumin/Globulin Ratio (1.1 - 2.2 %) 1.4 Coagulation D-Dimer High Sensitivty (0 - 243 ng/ml) 339 H Hematology CBC w Diff Pending NO MAN DIFF REQ WBC (4.8 - 10.8 /CUMM) Pending 5.4 RBC (4.70 - 6.10 /CUMM) Pending 4.63 L Hgb (14.0 - 18.0 G/DL) Pending 14.5 Hct (42 - 52 %) Pending 43.8 MCV (80.0 - 94.0 FL) Pending 94.6 H MCH (27.0 - 31.0 PG) Pending 31.3 H RDW (11.5 - 14.5 %) Pending 13.7 Plt Count (130 - 400 /CUMM) Pending 194 MPV (7.4 - 10.4 FL) Pending 9.0 Gran % (42.2 - 75.2 %) Pending 67.6 Lymphocytes % (20.5 - 51.1 %) Pending 21.4 Monocytes % (1.7 - 9.3 %) Pending 7.9 Eosinophils % (0 - 5 %) Pending 3.0 Basophils % (0.0 - 2.0 %) Pending 0.1 Absolute Granulocytes (1.4 - 6.5 /CUMM) Pending 3.7 Absolute Lymphocytes (1.2 - 3.4 /CUMM) Pending 1.2 Absolute Monocytes (0.10 - 0.60 /CUMM) Pending 0.4 Absolute Eosinophils (0.0 - 0.7 /CUMM) Pending 0.2 Absolute Basophils (0.0 - 0.2 /CUMM) Pending 0 PUBS MCHC (33.0 - 37.0 G/DL) Pending 33.1 Assessment/Plan Assessment/Plan 71 y/o male with PMH of HTN, hyperlipidemia, CAD, COPD, parkinson's disease, brittle DM type 1 since 1968 on T slim insulin pump and DEXCOM, presented with of burning chest pain and shortness of breath on exertion for last 1 week. He was put on Solumedrol 60 mg iv daily. His am FSG was 97. As per hospital policy, insulin pump should be discontinued as inpatient and the patient's diabetes will be managed by an insulin subcutaneous regimen. However patient has been on insulin pump for years and he insists that he should continue wearing insulin pump as inpatient because his diabetes is brittle. He refused to take insulin injections. Patient understands the possible complications related to insulin pump and agrees to take full responsibility of his insulin pump. However, patient also agrees that insulin pump will be discontinued if he can't manage insulin pump due to certain circumstances. Detail see the written order and the written consent that patient signed. Plan: 1. patient is alert and oriented and is capable to manage his insulin pump for now; 2. nurse will monitor FSGs ac tid, bedtime and 3 am plus additional FSG checking as needed; 3. nurse will record FSGs and boluses patient receives into the medical record. any questions, please feel free to contact endocrine. . will follow. Consult Acknowledgment - Thank you for your consult request.
--- NOTE | 2017-02-15 11:23 | Discharge Summary ---
Visit Information Visit Dates Admission Date: 02/14/17 Discharge Date: 02/15/17 Hospital Course Course Attending Physician: NORMA DICKERSON,RUBIO Gibson Primary Care Physician: IVY DICKERSON,[facility] Course: 71 YO M non smoker with PMH of HTN, hyperlipidemia, myocardial infarction, orthostatic hypertension, COPD not on home oxygen, uncontrolled diabetes mellitus on insulin pump, Parkinson's disease, fibromyalgia and depression presented with CC of burning chest pain and shortness of breath on exertion for last 1 week. In ED patient was assessed for:COPD exacerbation,ACS,PE,Pneumonia, CHF Labs on admission: Hb 14.5, plt 194, D-dimer 339, k 5.4, Na 140, BUN 24, Cr 1.1, glucose 299, troponin 0.01. CXR on admission: Linear atelectasis and/or infiltrate at right costophrenic angle. CTA on admission: 1. No pulmonary embolus identified. 2. Bibasilar subsegmental atelectasis. 3. Coronary artery calcifications #ATYPICAL CHEST PAIN: The patient presented with atypical chest pain. Serial EKG and troponin levels were normal which ruled out ACS. CTA was normal which ruled out PE. He was observed on telemetry for 24 hours. The patient reported improvement of his chest pain during his hospital stay. # COPD EXACERBATION Patient had a history of COPD, he was treated with TRC, nebulizer, oxygen. Most likely his chest pain was due to COPD exacerbation. Urine for Legionella and strep pneumonia was obtained , results were still pending .The patient was discharged on prednisone taper and advised to follow-up with his injection molding machine setter Dr. Lim. #DM: He was kept on insuline pump as per Dr Whitehead, in addition to Accu-check and diabetic diet . #Parkinson: Patient had a history of parkinsonism. He was kept on his home medication DVT Prophylaxis:Mechanical and Heparin Diet: Diabetic diet CODE Status:full code Allergies: Coded Allergies: morphine (Mild, RASH, ITCHY 02/14/17) Disposition Summary Disposition Principal Diagnosis: #1 atypical chest pain #2 COPD exacerbation Additional Diagnosis: DM Parkinsonism Discharge Disposition: home or self care Discharge Instructions General Discharge Information Code Status: Full Code Patient's Diet: Consistent carbohydrate to Patient's Activity: As tolerated Follow-Up Instructions/Appts: #1 please follow-up with your PCP in 1 week of discharge #2 please follow-up with your injection molding machine setter in 1 week discharge #3 please follow up with her [place] man in 1 week discharge Medications at Discharge Discharge Medications: Continue taking these medications: Bupropion HCl (Bupropion XL) 300 MG TAB.ER.24H 1 Tablet ORAL Every Morning Comments: Last Taken: 02/15/17 Time: 9:30 AM Fludrocortisone Acetate (Fludrocortisone Acetate) 0.1 MG TABLET 0.5 Tablet ORAL DAILY Comments: Last Taken: 02/15/17 Time: 9:30 AM Latanoprost (Xalatan) 0.005 % DROPS 1 Drop Both Eyes Every night Comments: NOT GIVEN IN HOSPITAL Tiotropium [place] (Spiriva) 18 MCG CAP.W.DEV 1 Capsule Inhale through mouth Every Morning Comments: Last Taken: 02/15/17 Time: 9:30 AM Donepezil HCl (Aricept) 10 MG TABLET 1 Tablet ORAL Every Morning Comments: Last Taken: 02/15/17 Time: 9:30 AM Loratadine (Claritin) 10 MG TABLET 1 Tablet ORAL DAILY Comments: Last Taken: 02/15/17 Time: 9:30 AM Aspirin (Ecotrin*) 81 MG TABLET.DR 1 Tablet ORAL DAILY Comments: Last Taken: 02/15/17 Time: 9:30 AM Pantoprazole Sodium (Pantoprazole Sodium) 40 MG TABLET.DR 1 Tablet ORAL DAILY Qty = 30 Comments: Last Taken: 02/15/17 Time: 6:15 AM PRILOSEC GIVEN Atorvastatin Calcium (Atorvastatin Calcium) 80 MG TABLET 0.5 Tablet ORAL 5 PM Comments: NOT GIVEN IN HOSPITAL Metoprolol Succ XL (Toprol XL) 25 MG TAB.ER.24H 0.5 Tablet ORAL Every Morning Comments: Last Taken: 02/15/17 Time: 9:30 AM Melatonin (Melatonin) 3 MG TABLET 2 Tablet ORAL Every night Comments: NOT GIVEN IN HOSPITAL Insulin Aspart (Novolog) (Unknown Strength) VIAL Unknown Dose Comments: Last Taken: 02/15/17 Time: 11:00 AM PT'S OWN Oxycodone HCl (Oxycodone HCl) 5 MG CAPSULE 1 Capsule ORAL Q6HR as needed for PAIN Qty = 12 Comments: Last Taken: 02/15/17 Time: 6:30 AM Albuterol Sulfate (Proair Hfa) 90 MCG HFA.AER.AD 2 Puff Inhale through mouth as needed for DYSPNEA Comments: Last Taken: 7/24/17 Time: 11:00 NEB GIVEN Rotigotine (Neupro) 1 MG/24 HOUR PATCH.TD24 1 PATCH On the skin Every Morning Comments: NOT GIVEN IN HOSPITAL Budesonide/Formoterol Fumarate (Symbicort 80-4.5 Mcg Inhaler) 80 MCG-4.5 MCG/ ACTUATION HFA.AER.AD 2 Puff Inhale through mouth as needed for SOB Comments: Last Taken: 02/15/17 Time: 9:30 AM Amlodipine (Norvasc) 2.5 MG TABLET 1 Tablet ORAL DAILY Comments: Last Taken: 02/15/17 Time: 9:30 AM Lactobacillus Acidophilus (Probiotic) 10 BILLION CELL CAPSULE 1 Capsule ORAL DAILY Comments: Last Taken: 02/15/17 Time: 9:30 AM Start taking the following new medications: Prednisone (Prednisone) 10 MG TABLET 1 Tablet ORAL DAILY Qty = 16 No Refills Comments: PLEASE TAKE 4 TAB( 40 MG) PO DAILY ON 02/16 PLEASE TAKE 3 TAB( 30 MG) PO DAILY ON 02/17 AND 02/18 PLEASE TAKE 2 TAB ( 20 MG) PO DAILY ON 02/19 AND 02/20 PLEASE TAKE 1 TAB(10 MG) PO DAILY ON 02/21 AND 02/22 THEN STOP TAKING IT ONWARDS TILL YOU SEE YOUR PCP 60 MG IV SOLUDMEDROL GIVEN ON 02/15 Copies To: IVY DICKERSON,FRANKLIN; RACHEL DICKERSON PhD,HOMER Gibson
[2017-02-15] MEDS ORDERED: PREDNISONE10 M2 PO (11:46)
--- NOTE | 2017-02-15 11:51 | Patient Discharge Instructions ---
Discharge Instructions General Discharge Information You were seen/treated for: #1 atypical chest pain #2 COPD H Association #3 diabetes mellitus Special Instructions: #1 please follow-up with your PCP in 1 week of discharge #2 please follow-up with your certified drug counselor in 1 week discharge #3 please follow up with her citizen participation specialist in 1 week discharge Diet Continue normal diet: Yes Recommended Diet: Diabetic Activity Full Activity/No Limits: Yes Acute Coronary Syndrome Inclusion Criteria At DC or during hospital stay patient has or had the following: ACS DIAGNOSIS No Discharge Core Measures Meds if any: Prescribed or Continued at Discharge Meds if any: NOT Prescribed or Continued at Discharge Congestive Heart Failure Inclusion Criteria At DC or during hospital stay patient has or had the following: CHF DIAGNOSIS No Discharge Core Measures Meds if any: Prescribed or Continued at Discharge Meds if any: NOT Prescribed or Continued at Discharge Cerebrovascular accident Inclusion Criteria At DC or during hospital stay patient has or had the following: CVA/TIA Diagnosis No Discharge Core Measures Meds if any: Prescribed or Continued at Discharge Meds if any: NOT Prescribed or Continued at Discharge Venous thromboembolism Inclusion Criteria VTE Diagnosis No VTE Type NONE VTE Confirmed by (Test) NONE Discharge Core Measures - Per Current guidelines, there needs to be overlap - treatment for the first 5 days of Warfarin therapy. - If discharged on Warfarin prior to 5 days of - overlap therapy, the patient will need to be - assessed for post discharge needs including - *Post discharge parental anticoagulation - *Warfarin and/or parental anticoagulation education - *Follow up date to check INR post discharge At least 5 days overlap therapy as Inpatient No Meds if any: Prescribed or Continued at Discharge Note: Overlap Therapy is Warfarin and Anticoagulant Meds if any: NOT Prescribed or Continued at Discharge
--- NOTE | 2017-02-15 12:27 | Cons- Pulmonary ---
General Information and HPI Consulting Request Date of Consult: 02/15/17 Requested By: Dr. Oleary and family Reason for Consult: COPD exacerbation Source of Information: patient Exam Limitations: no limitations History of Present Illness: 70M. Consult for exacerbation of COPD. Used varnish in doors on furniture and developed bronchospasm. Returned to respiratory baseline with solumedrol. Hx of parkinsons, COPD, KASSY. Compliance - October 2016 [facility] - 3.3 PAP - CPAP @ [id number] Over past few weeks has had nausea/vomiting/gi upset likely secondary to gastroenteritis in the community, which has subsided and Ed is able to return to using the machine comfortably. S/p back surgery, pain is improved, however is still in the recovery/healing phase.70M follow up for KASSY & COPD. Compliance - October 2016 [facility] - 3.3 PAP - CPAP @ [id number] Over past few weeks has had nausea/vomiting/gi upset likely secondary to gastroenteritis in the community, which has subsided and Ed is able to return to using the machine comfortably. S/p back surgery, pain is improved. At respiratory baseline. Symbicort 160/4.5mcg 2 puffs BID with rinsing of the mouth Ventolin for rescue Follows with hamzah Pena from the cardiology perspective. Mild restrictive physiology. Mild reduction in DLCO. Significant bronchodilator response for the forced vital capacity. Normal pulse oximetry with exercise. History of COPD. He also has parkinson's disease and memory impairment. No sick contacts, no travel history. No palpitations or chest pain. Walks with a cane. Allergies/Medications Allergies: Coded Allergies: morphine (Mild, RASH, ITCHY 02/14/17) Home Med List: Albuterol Sulfate (Proair Hfa) 90 MCG HFA.AER.AD 2 PUF INH PRN DYSPNEA ( Reported) Amlodipine (Norvasc) 2.5 MG TABLET 1 TAB PO DAILY HEART/BP (Reported) Aspirin (Ecotrin*) 81 MG TABLET.DR 1 TAB PO DAILY HEART/BLOOD (Reported) Atorvastatin Calcium 80 MG TABLET 0.5 TAB PO 1700 CHOLESTEROL (Reported) Budesonide/Formoterol Fumarate (Symbicort 80-4.5 Mcg Inhaler) 80 MCG-4.5 MCG/ ACTUATION HFA.AER.AD 2 PUF INH PRN SOB (Reported) Bupropion HCl (Bupropion XL) 300 MG TAB.ER.24H 1 TAB PO QAM DEPRESSION ( Reported) Donepezil HCl (Aricept) 10 MG TABLET 1 TAB PO QAM MEMORY (Reported) Fludrocortisone Acetate 0.1 MG TABLET 0.5 TAB PO DAILY ORTHOSTATIC HYPOTENSION (Reported) Insulin Aspart (Novolog) (Unknown Strength) VIAL (Unknown Dose) DIABETES - PUMP (Reported) Lactobacillus Acidophilus (Probiotic) 10 BILLION CELL CAPSULE 1 CAP PO DAILY PROBIOTIC (Reported) Latanoprost (Xalatan) 0.005 % DROPS 1 GTT OU QPM GLAUCOMA (Reported) Loratadine (Claritin) 10 MG TABLET 1 TAB PO DAILY ALLERGIES (Reported) Melatonin 3 MG TABLET 2 TAB PO QPM SLEEP (Reported) Metoprolol Succ XL (Toprol XL) 25 MG TAB.ER.24H 0.5 TAB PO QAM BP (Reported) Oxycodone HCl 5 MG CAPSULE 1 CAP PO Q6HR PRN PAIN Pantoprazole Sodium 40 MG TABLET.DR 1 TAB PO DAILY GI (Reported) Prednisone 10 MG TABLET 1 TAB PO DAILY COPD EXACERBATION Rotigotine (Neupro) 1 MG/24 HOUR PATCH.TD24 1 PATCH TOP QAM PARKINSONS ( Reported) Tiotropium [place] (Spiriva) 18 MCG CAP.W.DEV 1 CAP INH QAM COPD (Reported) Current Medications: Current Medications Sig/Luiza Start time Last Medication Dose Route Stop Time Status Admin Acetaminophen 650 MG Q6P PRN 02/15 0030 AC PO Albuterol Sulfate 3 ML BID 02/15 1100 AC 02/15 INH 1100 Albuterol Sulfate 3 ML ONCE ONE 02/15 0615 DC 02/15 INH 02/15 0616 0609 Albuterol Sulfate 3 ML ONCE ONE 02/14 2045 DC 02/14 INH 02/14 Amlodipine Besylate 2.5 MG DAILY 02/15 1000 AC 02/15 PO 0931 Aspirin 0 .STK-MED ONE 02/14 2055 DC PO Aspirin 325 MG ONCE ONE 02/14 2045 DC 02/14 PO 02/14 Aspirin Buffered 81 MG DAILY 02/15 1000 AC 02/15 PO 0930 Atorvastatin Calcium 40 MG 1700 02/15 1700 AC PO Azithromycin 0 .STK-MED ONE 02/15 0040 DC PO Azithromycin 250 MG DAILY 02/15 0030 AC 02/15 PO 02/19 1001 0034 Budesonide/ 2 PUF DAILY 02/15 1000 AC 02/15 Formoterol Fumarate INH 0932 Bupropion HCl 300 MG QAM 02/15 1000 AC 02/15 PO 0930 Donepezil HCl 10 MG DAILY 02/15 1000 AC 02/15 PO 0930 Fludrocortisone 50 MCG DAILY 02/15 1000 AC 02/15 Acetate PO 0931 Heparin Sodium 5,000 UNIT Q8 02/15 0600 AC 02/15 (Porcine) SC 0613 Ipratropium [place] 2.5 ML ONCE ONE 02/14 204 DC 02/14 INH 02/14 Lactobacillus 1 CAP DAILY 02/15 1000 AC 02/15 Acidophilus PO 0930 Latanoprost 1 GTT QPM 02/15 2200 AC OPH Loratadine 10 MG DAILY 02/15 1000 AC 02/15 PO 0930 Melatonin 6 MG QPM 02/15 2200 AC PO Methylprednisolone 60 MG DAILY 02/15 1000 AC 02/15 IV 0929 Metoprolol Succinate 12.5 MG QAM 02/15 1000 AC 02/15 PO 0931 Nitroglycerin 0 .STK-MED ONE 02/14 2055 DC SL Nitroglycerin 0.4 MG ONCE ONE 02/14 2045 DC 02/14 SL 02/14 Omeprazole 40 MG DAILY AC 02/15 0700 AC 02/15 PO 0612 Oxycodone HCl 5 MG Q6 PRN 02/15 0045 AC 02/15 PO 0620 Prednisone 0 .STK-MED ONE 02/14 2247 DC PO Prednisone 40 MG ONCE ONE 02/14 2230 DC 02/14 PO 02/14 2231 2258 Sodium Chloride 1,000 ML BOLUS ONE 02/14 2115 DC 02/14 IV 02/14 221 2116 Tiotropium [place] 1 PUF QAM 02/15 1000 AC 02/15 INH 0932 Review of Systems Comments 18 point review of systems performed. Pertinent positive and negative findings are in the HPI, otherwise negative. 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 Surgical History Surgical History: CARDIAC CATH X 3 ([facility] MORE THAN 10 YEARS AGO) MULTIPLE SHOULDER, KNEE, WRIST, JAW, SINUS SURGERIES Psychosocial History Services at Home: None Smoking Status: Never Smoked Exam & Diagnostic Data Last 24 Hrs of Vital Signs/I&O Vital Signs Date Time Temp Pulse Resp B/P B/P Pulse O2 O2 Flow FiO2 Mean Ox Delivery Rate 02/15 1103 Room Air Room Air 02/15 1103 96 Room Air Room Air 02/15 0931 63 130/80 02/15 0931 63 130/80 02/15 0611 95 Room Air Room Air 02/15 0605 97.8 63 18 130/80 92 Room Air 02/15 0312 98.2 56 18 130/80 94 Room Air 02/15 0300 94 Room Air 02/15 0136 96.7 60 18 116/59 92 Room Air 02/14 2223 97.6 57 18 127/60 97 Nasal 2.5L Cannula 02/14 2220 Room Air 02/14 2122 59 118/67 02/14 2116 100/57 02/14 2115 98 02/14 2107 95/56 02/14 1925 97.3 62 16 160/84 95 Room Air Intake & Output 02/15 1600 02/15 0800 02/15 0000 Intake Total 602 981 9405 Output Total 500 400 Balance -140 -200 1000 Intake, IV 1000 Intake, Oral 360 200 Output, Urine 500 400 Patient 208 lb 208 lb Weight Weight Reported by Patient Measurement Method Physical Exam Other Physical Findings: Gen - alert and awake HEENT - NCAT CVS - S1, S2, no murmurs, rubs or gallops Lungs - rare rhonchi Abdomen - soft, non-tender, bs+ Ext - no edema, no cyanosis Last 48 Hrs of Labs/John: Laboratory Tests 02/15/17 0714: Anion Gap 10, Estimated GFR > 60, BUN/Creatinine Ratio 24.4, Troponin I < 0.01, CBC w Diff NO MAN DIFF REQ, RBC 4.50 L, MCV 94.2 H, MCH 31.5 H, RDW 13.3, MPV 9.8, Gran % 89.3 H, Lymphocytes % 9.8 L, Monocytes % 0.9 L, Eosinophils % 0, Basophils % 0 L, Absolute Granulocytes 5.8, Absolute Lymphocytes 0.6 L, Absolute Monocytes 0.1 L, Absolute Eosinophils 0, Absolute Basophils 0, PUBS MCHC 33.5 02/15/17 0028: Troponin I < 0.01 02/14/17 2020: Anion Gap 9, Estimated GFR > 60, BUN/Creatinine Ratio 21.8, Glucose 299 H, Calcium 9.3, Total Bilirubin 0.8, AST 23, ALT 41, Alkaline Phosphatase 74, Troponin I < 0.01, Total Protein 7.3, Albumin 4.2, Globulin 3.1, Albumin/ Globulin Ratio 1.4, D-Dimer High Sensitivty 339 H, CBC w Diff NO MAN DIFF REQ, RBC 4.63 L, MCV 94.6 H, MCH 31.3 H, RDW 13.7, MPV 9.0, Gran % 67.6, Lymphocytes % 21.4, Monocytes % 7.9, Eosinophils % 3.0, Basophils % 0.1, Absolute Granulocytes 3.7, Absolute Lymphocytes 1.2, Absolute Monocytes 0.4, Absolute Eosinophils 0.2, Absolute Basophils 0, PUBS MCHC 33.1 Assessment/Plan Impression/Plan: Impression 71 year old man * COPD exacerbaiton/bronchospasm * KASSY * Parkinson's * Atelectasis CTA There are curvilinear regions of opacity at the lung bases, consistent with subsegmental atelectasis. No additional consolidation is seen. There is a 4 mm left fissural nodule on image [id number], suggestive of a lymph node and statistically likely benign. Plan -prednisone 40mg x 2 days, 30x2, 20x2, 10x2, then stop -cont cpap -f/u cardiology -IST -okay for dc -cont symbicort, proair Consult Acknowledgment - Thank you for your consult request.
--- NOTE | 2017-02-16 09:20 | ECHOCARDIOGRAM REPORT ---
REYNALDO LORA Age: 71 : 1945 Gender: M Exam Date: 02/15/2017 09:31 Exam Location: [facility] Ht (in): 74 Wt (lb): 203 BSA: 2.20 BP: 130 / 80 Ordering Physician: LIBIA LOZANO MD Referring Physician: LIBIA LOZANO MD Technologist: Shayne Garcia [facility] Room Number: 174-1 Indications: Chest Pain Rhythm: Sinus Technical Quality: Fair FINDINGS Left Ventricle Normal size left ventricle. Normal left ventricular wall thickness. Normal left ventricular ejection fraction visually estimated at > 60%. No obvious regional wall motion abnormalities. Right Ventricle Normal right ventricular size and function. Right Atrium Normal right atrial size. Left Atrium Normal left atrial size. Mitral Valve Mild mitral annular calcification. Aortic Valve Aortic valve mildly thickened. No aortic stenosis. No aortic regurgitation. Tricuspid Valve Tricuspid valve not well visualized, grossly normal. Trace tricuspid regurgitation. Pulmonic Valve Pulmonic valve not well visualized, grossly normal. Trace pulmonic regurgitation. Pericardium No pericardial effusion. Great Vessels Normal size aortic root. CONCLUSIONS Normal left ventricular ejection fraction visually estimated at > 60%. Trace tricuspid regurgitation. Trace pulmonic regurgitation. Max Oleary M.D. (Electronically Signed) Final Date: 16 February 2017 09:20 MEASUREMENTS (Male / Female) Normal Values 2D ECHO LV Diastolic Diameter PLAX 5.1 cm 4.2 - 5.9 / 3.9 - 5.3 cm LV Systolic Diameter PLAX 3.8 cm 2.1 - 4.0 cm LV Fractional Shortening PLAX 25.5 % 25 - 46 % LV Ejection Fraction 2D Teich 50.0 % IVS Diastolic Thickness 1.0 cm LVPW Diastolic Thickness 1.1 cm LV Relative Wall Thickness 0.4 RV Internal Dim ED PLAX 3.2 cm 1.9 - 3.8 cm LVOT Diameter 2.4 cm Aortic Root Diameter 3.4 cm LA Systolic Diameter LX 3.5 cm 3.0 - 4.0 / 2.7 - 3.8 cm Ascending Aorta Diameter 2.8 cm DOPPLER AV Peak Velocity 138.0 cm/s AV Peak Gradient 7.6 mmHg AV Mean Velocity 92.6 cm/s AV Mean Gradient 4.0 mmHg AV Velocity Time Integral 32.1 cm LVOT Peak Velocity 93.6 cm/s LVOT Peak Gradient 3.5 mmHg LVOT Mean Velocity 56.3 cm/s LVOT Mean Gradient 2.0 mmHg LVOT Velocity Time Integral 21.9 cm LVOT Stroke Volume 99.1 cm AV Area Cont Eq vti 3.1 cm AV Area Cont Eq pk 3.1 cm MV Peak Velocity 134.0 cm/s MV Peak Gradient 7.2 mmHg MV Mean Velocity 65.2 cm/s MV Mean Gradient 2.0 mmHg Mitral E Point Velocity 72.9 cm/s Mitral A Point Velocity 114.0 cm/s Mitral E to A Ratio 0.6 MV PHT Velocity 96.4 cm/s MV Deceleration [place] 470.0 cm/s MV Pressure Half Time 61.5 ms MV Area PHT 3.6 cm MV Deceleration Time 204.0 ms PV Peak Velocity 103.0 cm/s PV Peak Gradient 4.2 mmHg PV Mean Velocity 73.6 cm/s PV Mean Gradient 3.0 mmHg PV Velocity Time Integral 25.8 cm LV E' Lateral Velocity 8.8 cm/s Mitral E to LV E' Lateral Ratio 8.3 LV E' Septal Velocity 7.5 cm/s Mitral E to LV E' Septal Ratio 9.7
== END 2017-02-15 13:45 ==
LOC: ERH 19:07 → 1NO 22:18 → ERHI 22:18 → ENRESERV 02-15 00:50 → 1NO 02-15 02:50 → ENPENDDIS 02-15 13:06 → 1NO 02-15 13:45
PROVIDERS: Internal Medicine; Pediatrics; ADMIT Internal Medicine Interventional Cardiology
DX: J44.1 Chronic obstructive pulmonary disease with (acute) exacerbation (principal); R07.89 Other chest pain; I10 Essential (primary) hypertension; E78.5 Hyperlipidemia, unspecified; I25.10 Atherosclerotic heart disease of native coronary artery without angina pectoris; E11.40 Type 2 diabetes mellitus with diabetic neuropathy, unspecified; Z96.41 Presence of insulin pump (external) (internal); Z79.4 Long term (current) use of insulin; G20 Parkinson's disease; M79.7 Fibromyalgia; F32.9 Major depressive disorder, single episode, unspecified; M54.9 Dorsalgia, unspecified; I25.2 Old myocardial infarction; F41.9 Anxiety disorder, unspecified
CPT/HCPCS: 1255; 1263; 6090; 36415; 82436; 87070; 87449; 87450; 87804; 87804-59; 93005; 93010; 93306; 96360; 96361; 96372; 96374; G0378; J0456; J1644; J2920; J3490

== ENCOUNTER 2018-03-06 18:46 | Inpatient (IN) | payer OTHER, MEDICARE ==
[~2018-03-06] VITALS: Ht 188 cm; Wt 99.8 kg
[~2018-03-06 18:46] MED LIST changes: +NEUPRO1 EAC4 TOP; +NORVASC2.5 M1 PO; -NOVOLOG100 UNIT/2; +NOVOLOG100 UNIT/2 SC; +PREDNISONE10 M2 PO; +PROAIR HFA8.5 GM INH; +PROBIOTIC1 EACH PO; +SYMBICORT 80-10.2 GM INH
[2018-03-06] MEDS ORDERED: CO Q-10100 MG PO (19:21)
[2018-03-06] MEDS ORDERED: TRAMADOL HCL50 M1 PO (19:22)
[2018-03-06] MEDS ORDERED: VITAMIN B122500 MC1 PO (19:22)
--- NOTE | 2018-03-06 19:57 | ED AMS/SEIZURE/WEAK/DIZZY ---
History of Present Illness General Chief Complaint: Altered Mental Status Stated Complaint: HYPOGLYCEMIA Source: patient, family, EMS Exam Limitations: not alert/orientated, confusion Vital Signs & Intake/Output Vital Signs & Intake/Output Vital Signs Date Time Temp Pulse Resp B/P B/P Pulse O2 O2 Flow FiO2 Mean Ox Delivery Rate 03/08 0000 Nasal 3.0L Cannula 03/08 0000 100.4 92 20 142/60 Nasal 3.0L Cannula 03/07 2245 102.3 03/07 2100 86 95 03/07 2037 95 Nasal 3.0L Cannula 03/07 1600 97 Nasal 3.0L Cannula 03/07 1600 97.6 75 18 134/82 97 Nasal 3.0L Cannula 03/07 1252 95 Nasal 3.0L Cannula 03/07 1230 Nasal 3.0L Cannula 03/07 0821 90 142/80 03/07 0820 90 142/80 03/07 0800 96 Nasal 3.0L Cannula 03/07 0800 98.2 90 20 142/80 96 Nasal 3.0L Cannula ED Intake and Output 03/08 0000 03/07 1200 Intake Total 950 400 Output Total 2045 1700 Balance -1095 -1300 Intake, IV 110 Intake, Oral 840 400 Number 0 Bowel Movements Output, Urine 2045 1700 Patient 230 lb Weight Weight Bed scale Measurement Method Allergies Coded Allergies: morphine (Mild, RASH, ITCHY 10/02/17) Reconcile Medications Albuterol Sulfate (Proair Hfa) 90 MCG HFA.AER.AD 2 PUF INH PRN DYSPNEA ( Reported) Amlodipine (Norvasc) 2.5 MG TABLET 1 TAB PO DAILY HEART/BP (Reported) Aspirin (Ecotrin*) 81 MG TABLET.DR 1 TAB PO DAILY HEART/BLOOD (Reported) Atorvastatin Calcium 80 MG TABLET 0.5 TAB PO 1700 CHOLESTEROL (Reported) Budesonide/Formoterol Fumarate (Symbicort 80-4.5 Mcg Inhaler) 80 MCG-4.5 MCG/ ACTUATION HFA.AER.AD 2 PUF INH PRN SOB (Reported) Bupropion HCl (Bupropion XL) 300 MG TAB.ER.24H 1 TAB PO QAM DEPRESSION ( Reported) Cyanocobalamin (Vitamin B-12) (Vitamin B12) (Unknown Strength) TABLET (Unknown Dose) PO DAILY SUPPLEMENT (Reported) Donepezil HCl (Aricept) 10 MG TABLET 1 TAB PO QAM MEMORY (Reported) Fludrocortisone Acetate 0.1 MG TABLET 0.5 TAB PO DAILY ORTHOSTATIC HYPOTENSION (Reported) Insulin Aspart (Novolog) (Unknown Strength) VIAL (Unknown Dose) DIABETES - PUMP (Reported) Latanoprost (Xalatan) 0.005 % DROPS 1 GTT OU QPM GLAUCOMA (Reported) Loratadine (Claritin) 10 MG TABLET 1 TAB PO DAILY ALLERGIES (Reported) Metoprolol Succ XL (Toprol XL) 25 MG TAB.ER.24H 0.5 TAB PO QAM BP (Reported) Rotigotine (Neupro) 1 MG/24 HOUR PATCH.TD24 1 PATCH TOP QAM [place]ARK[place]SONS ( Reported) Tiotropium [place] (Spiriva) 18 MCG CAP.W.DEV 1 CAP INH QAM COPD (Reported) Tramadol HCl 50 MG TABLET 1 TAB PO AD PRN PAIN (Reported) Ubidecarenone (Co Q-10) (Unknown Strength) CAPSULE (Unknown Dose) PO DAILY SUPPLEMENT (Reported) Triage Note: RECEIVED 72 YO MALE WITH HX OF IDDM BIBA FROM HOME PT WAS FOUND ON BEDROOM FLOOR SHAKING AND ROLLING BACK AND FORTH WITH ALTERED MENTAL STATUS BY , 911 CALLED, BLOOD SUGAR BY EMS 20. PT WAS GIVEN ORAL GLUCOSE BY PARAMEDICS. PT ARRIVES TO THE ED SHAKING BUT ANSWERING QUESTIONS APPROPRIATELY, BLOOD SUGAR 90. PT EVALUATED IMMEDIATELY BY DR MABRY AND FRANK MCKEE Triage Nurses Notes Reviewed? yes HPI: 80-year-old male presents emergency department brought in by ambulance. He was found down at his house by his . His noticed him to be cold and checked his blood sugar which was low. EMS reports the sugar was 20 upon arrival. He was given glucose and upon arrival to the emergency department his sugars 95. He is lethargic cold and diaphoretic. removed his insulin pump prior to arrival. Patient states he got up this morning and had some chest and back pain. states he typically has back pain and had a recent back surgery over a month ago. Patient then decided to lay back down and does not remember remember anything the rest of the day. He cannot recall much of yesterday. He denies any fevers or chills. No cough or congestion. No headache nausea or vomiting. Denies abdominal pain. Denies current chest pain or shortness of breath. (Ramos FOSTER,Rene) Past History Travel History Traveled to [place] past 21 day No Medical History Any Pertinent Medical History? see below for history Neurological: Parkinson's disease, TIA EENT: glaucoma Cardiovascular: hypertension, hyperlipidemia, myocardial infarction, PERIODIC HYPOTENSION Respiratory: COPD Gastrointestinal: NONE Hepatic: NONE Renal: NONE Musculoskeletal: NONE, fibromyalgia Psychiatric: anxiety, depression Endocrine: diabetes Blood Disorders: NONE Cancer(s): NONE [employer]/Reproductive: NONE History of MRSA: No History of VRE: No History of CDIFF: No Surgical History Surgical History: CARDIAC CATH X 3 (ST LOUS MORE THAN 10 YEARS AGO) MULTIPLE SHOULDER, KNEE, WRIST, JAW, SINUS SURGERIES Psychosocial History Who do you live with Spouse Services at Home None What is your primary language French Tobacco Use: Never used Family History Hx Contributory? No (Rene Mckee PA-C) Review of Systems Review of Systems Constitutional: Reports: see HPI. EENTM: Reports: no symptoms. Respiratory: Reports: no symptoms. Cardiovascular: Reports: no symptoms. GI: Reports: no symptoms. Genitourinary: Reports: no symptoms. Musculoskeletal: Reports: no symptoms. Skin: Reports: see HPI. Neurological/Psychological: Reports: see HPI. Hematologic/Endocrine: Reports: see HPI. Immunologic/Allergic: Reports: no symptoms. All Other Systems: Reviewed and Negative Comments ROS limited due to condition of patient. (Rene Mckee PA-C) Physical Exam Physical Exam General Appearance: Diaphoretic, cool, lethargic, moderate distress Head: atraumatic, normal appearance Eyes: Bilateral: EOMI. Ears, Nose, Throat: mucosa moist Neck: no jvd Respiratory: normal breath sounds, chest non-tender, no respiratory distress Cardiovascular: regular rate/rhythm Peripheral Pulses: 2+ radial (R), 2+ radial (L) Gastrointestinal: soft, non-tender Extremities: normal range of motion Neurologic/Psych: No focal neuro deficits. CN 2-12 grossly intact, miotic pupils noted, pts baseline. Follows commands. Skin: diaphoresis Comments: Pinpoint pupils. Core Measures ACS in differential dx? Yes CVA/TIA Diagnosis No Sepsis Present: Yes Sepsis Focused Exam Completed? Yes (Rene Mckee PA-C) Progress Differential Diagnosis: drug intoxication, electrolyte imbalance, hypoglycemia, hypoxia, presyncope, sepsis, UTI/pyelo Plan of Care: Orders Procedure Date/time Status Consistent Carbohydrate 1 03/08 B Active ICU LAB BUNDLE 03/08 0500 Complete CBC WITHOUT DIFFERENTIAL 03/08 0500 Complete Consistent Carbohydrate 3 03/07 D Complete BLOOD CULTURE 03/07 2244 Active ELECTROENCEPHALOGRAM 03/07 1426 Active ECHOCARDIOGRAM 03/07 1255 Active RT: Evaluation 03/07 1251 Active BASIC ELECTROLYTES PLUS BUN&CR 03/07 1151 Complete THROAT CULTURE W/QUICK STREP 03/07 1028 Active STREP PNEUMO URINARY ANTIGEN 03/07 1028 Complete SWALLOW EVALUATION 03/07 UNK Active THERAPIST ORDERS 03/07 UNK Complete OXYGEN SETUP (GEN) 03/07 UNK Complete Change service to 03/07 UNK Active MISTAKE 03/07 UNK Active Nursing Misc 03/07 UNK Active Current Medications Sig/Luiza Start time Last Medication Dose Stop Time Status Admin Insulin Detemir 35 UNITS DAILY 03/08 0900 AC (Levemir) Magnesium Oxide 400 MG 0730 03/08 0730 AC (Mag-Ox) 03/08 0731 Tramadol HCl 50 MG ONCE PRN 03/08 0045 AC 03/08 (Ultram) 0047 Insulin Aspart 0 AT BEDTIME 03/07 2100 AC (NovoLOG) Insulin Detemir 10 UNITS AT BEDTIME 03/07 2100 CAN (Levemir) Latanoprost 1 GTT QPM 03/07 2100 AC 03/07 (Xalatan) 202 Atorvastatin Calcium 40 MG 1700 03/07 1700 AC 03/07 (Lipitor) 1636 Phenol 2 SPRAY Q2P PRN 03/07 1415 AC (Chloraseptic (Phenaseptic) [place]) Naphazoline HCl/ 1 GTT TID 03/07 1409 AC Pheniramine Maleate (Visine-A) Albuterol Sulfate 3 ML TID 03/07 1400 AC 03/07 (Proventil) 2035 Loratadine 10 MG DAILY 03/07 1353 AC 03/07 (Claritin) 1636 Albuterol Sulfate 2 PUF 4 TIMES/DAY PRN 03/07 1257 AC (Ventolin) Tiotropium [place] 1 PUF DAILY 03/07 1257 AC 03/07 (Spiriva) 1507 Benzocaine/Menthol 1 LORNE Q2P PRN 03/07 1030 AC 03/07 (Chloraseptic 1507 Lozenges) Amlodipine Besylate 2.5 MG DAILY 03/07 0900 AC 03/07 (Norvasc) 0820 Aspirin Buffered 81 MG DAILY 03/07 0900 AC 03/07 (Ecotrin) 08 Budesonide/ 2 PUF BID 03/07 0900 AC 03/07 Formoterol Fumarate 2020 (SYMBICORT) Bupropion HCl 300 MG QAM 03/07 0900 AC 03/07 (Wellbutrin XL) 08 Donepezil HCl 10 MG QAM 03/07 0900 AC 03/07 (Aricept) 08 Fludrocortisone 50 MCG DAILY 03/07 0900 AC 03/07 Acetate 0821 (Florinef 100 Mcg Tab) Metoprolol Succinate 12.5 MG QAM 03/07 0900 AC 03/07 (Toprol XL) 0821 Insulin Aspart 6 UNITS TIDAC 03/07 0845 AC 03/07 (NovoLOG) 1636 Insulin Detemir 30 UNITS 8AM 03/07 0845 AC 03/07 (Levemir) 0852 Heparin Sodium 5,000 UNIT Q8 03/07 0600 AC 03/08 (Porcine) 0601 Insulin Aspart 0 TIDAC 03/07 0345 AC 03/07 (NovoLOG) 1637 Polyethylene Glycol 17 GM DAILY 03/07 0145 AC (Miralax) Senna 187 MG AT BEDTIME 03/07 0145 AC 03/07 (Senokot) 202 Acetaminophen 650 MG Q8P PRN 03/07 0130 AC (Tylenol) Laboratory Tests 03/08/18 0600: Anion Gap 5, Estimated GFR > 60, Glucose 247 H, Calcium 8.7, Phosphorus 3.6, Magnesium 1.8, Total Bilirubin 0.9, AST 25, ALT 38, Albumin 3.2 L, CBC w Diff NO MAN DIFF REQ, RBC 3.70 L, MCV 94.1 H, MCH 32.1 H, MCHC 34.2, RDW 14.1, MPV 8.8, Gran % 75.5 H, Lymphocytes % 12.2 L, Monocytes % 10.1 H, Eosinophils % 1.9, Basophils % 0.3, Absolute Granulocytes 4.1, Absolute Lymphocytes 0.7 L, Absolute Monocytes 0.6, Absolute Eosinophils 0.1, Absolute Basophils 0 03/07/18 1220: Anion Gap 6, Estimated GFR > 60, BUN/Creatinine Ratio 17.8 03/07/18 1200: Sodium Cancelled, Potassium Cancelled, Chloride Cancelled, Carbon Dioxide Cancelled, Anion Gap Cancelled, BUN Cancelled, Creatinine Cancelled, BUN/ Creatinine Ratio Cancelled Microbiology 03/08 0100 BLOOD: Blood Culture - RECD 03/07 2313 BLOOD: Blood Culture - RECD 03/07 1208 URINE ROUT: Streptococcus pneumoniae Antigen (M - COMP Diagnostic Imaging: Viewed by Me: Radiology Read. Discussed w/RAD: Radiology Read. Radiology Impression: PATIENT: REYNALDO LORA PRESENT AGE: 72 PATIENT ACCOUNT NO: [id number] : 47 LOCATION: [facility] ORDERING PHYSICIAN: Rene Mckee PA-C SERVICE DATE: 03/06/18 EXAM TYPE: RAD - XRY -PORTABLE CHEST XRAY EXAMINATION: XR PORTABLE CHEST CLINICAL INFORMATION: Chest pain COMPARISON: 10/10/2017 TECHNIQUE: Portable frontal view of the chest was obtained. FINDINGS: Study is limited by positioning, lordotic. The cardiomediastinal contours appear stable. There is persistent elevation of the right hemidiaphragm. The lungs are clear without consolidation or effusion. Lower cervical fusion hardware is partially imaged. IMPRESSION: Limited study. No convincing acute cardiopulmonary process. DICTATED BY: Arianna Alegre MD DATE/ TIME DICTATED:03/06/182048 PAPER COATER:LAYTON DATE/TIME TRANSCRIBED: 03/06/182048 CONFIDENTIAL, DO NOT COPY WITHOUT APPROPRIATE AUTHORIZATION. < Electronically signed in Other Vendor System> SIGNED BY: Arianna Alegre MD 2053 Initial ED EKG: none Comments: Patient is a 72-year-old male who presents after being found hypoglycemic with a sugar of 20 at home. This has happened to him in the past. He does not remember anything throughout the day today. He was also found to be hypothermic of 95 upon arrival here to the ED. He was shivering, lethargic and diaphoretic. IVs were established and septic workup initiated. Patient was hydrated with 30 mL/kg of warm IVF. He was also given 250 cc of D5W. He was immediately placed under the blanket warmer. Cultures were obtained. He was given a gram of Rocephin. Upon reevaluation patient was feeling better. Temperature was 97.5. He has no longer diaphoretic. States he is feeling somewhat better. He is now alert and oriented 3. He is no longer lethargic. He is tolerating p.o. Patient's lactate was 3.8. He has a white count of 14. Chest x-ray shows no evidence of pneumonia. Urinalysis is normal. Current temperature is 98.5. Pt will be admitted for further workup and management. R/O sepsis. (Rene Mckee PA-C) Departure Departure Time of Disposition: 2202 Disposition: STILL A PATIENT Condition: Stable Clinical Impression Primary Impression: Hypoglycemia Secondary Impressions: Lactic acidosis Referrals: Liliana Jordan MD (PCP/Family) Departure Forms: Customer Survey General Discharge Information (Rene Mckee PA-C) Admission Note Spoke With: Benji Alberto MD Documentation of Exam: Documentation of any treatments & extenuating circumstances including Concerns Regarding Discharge (functional status, medication knowledge or non-compliance, living conditions, etc.) that warrant an admission rather than observation: [The patient needs admission for IV fluids, IV antibiotics, consider infectious disease consultation, external rewarming, ICU level care] I saw and personally examined the patient and I agree with the PAs evaluation. 72-year-old man presents to the emergency department after weakness and syncope. He was found to be hypoglycemic, hypothermic, febrile. He required external rewarming. Lactic acid was significantly elevated. He was admitted to the ICU for further care. (Ramo Nur DO) PA/TREATING PLANT PUMPER Co-Sign Statement Statement: ED Attending supervision documentation- [X] I saw and evaluated the patient. I have also reviewed all the pertinent lab results and diagnostic results. I agree with the findings and the plan of care as documented in the PA's/TREATING PLANT PUMPER's documentation. [X] I have reviewed the ED Record and agree with the PA's/TREATING PLANT PUMPER's documentation. [] Additions or exceptions (if any) to the PAs/TREATING PLANT PUMPER's note and plan are summarized below: [Patient was found unresponsive with a glucose of 20 by his . Patient was shaking but he does have a history of Parkinson's. Patient very diaphoretic. Patient came in hypothermic. Patient was given glucose by EMS and his sugar increased to 98. Patient is currently awake alert and oriented. Patient remembers getting up this morning and getting ready for her shower but then does not know what happened throughout the rest of the day. His pelvis is stable, his neck is supple and there is no midline tenderness. There is no evidence of head trauma. His lungs are clear to auscultation bilaterally.] (Teofilo DICKERSON,Markel Gonzalez)
[2018-03-06 20:16] LABS: ABSOLUTE BASOPHIL COUNT 0 /CUMM (0.0-0.2); ABSOLUTE EOSINOPHIL COUNT 0.1 /CUMM (0.0-0.7); ABSOLUTE GRANULOCYTE CT 12.6 /CUMM (1.4-6.5); ABSOLUTE LYMPH COUNT 0.8 /CUMM (1.2-3.4); BASOPHIL % 0.1 % (0.0-2.0); EOSINOPHIL % 0.4 % (0-5); HEMATOCRIT 43.5 % (42-52); MEAN CORPUSCULAR HGB 32.1 PG (27.0-31.0); MEAN CORPUSCULAR HGB CONC 33.9 G/DL (33.0-37.0); MEAN CORPUSCULAR VOLUME 94.7 FL (80.0-94.0); MEAN PLATELET VOLUME 9.4 FL (7.4-10.4); PLATELET COUNT 254 /CUMM (130-400); RBC DISTRIBUTION WIDTH 13.8 % (11.5-14.5); WHITE BLOOD CELL COUNT 14.4 /CUMM (4.8-10.8)
[2018-03-06 20:54] LABS: GRANULOCYTE % 87.4 % (42.2-75.2)
--- NOTE | 2018-03-06 20:54 | RADIOLOGY REPORT ---
EXAMINATION: XR PORTABLE CHEST CLINICAL INFORMATION: Chest pain COMPARISON: 10/10/2017 TECHNIQUE: Portable frontal view of the chest was obtained. FINDINGS: Study is limited by positioning, lordotic. The cardiomediastinal contours appear stable. There is persistent elevation of the right hemidiaphragm. The lungs are clear without consolidation or effusion. Lower cervical fusion hardware is partially imaged. IMPRESSION: Limited study. No convincing acute cardiopulmonary process.
--- NOTE | 2018-03-06 23:47 | CT SCAN REPORT ---
EXAMINATION: CT ABDOMEN AND PELVIS WITH CONTRAST CLINICAL INFORMATION: Abdominal pain. Question of epidural abscess. COMPARISON: 11/30/2016 TECHNIQUE: Multidetector volumetric imaging was performed of the abdomen and pelvis following IV administration of 95 mL of Optiray 320 intravenous contrast. Sagittal and coronal reformatted images were obtained on the technologist's workstation. DLP: 744 mGy-cm FINDINGS: LUNG BASES: Bibasilar subsegmental atelectasis. The visualized cardiac structures are unremarkable. LIVER, GALLBLADDER, AND BILIARY TREE: The liver is normal in size, shape, and attenuation. No focal hepatic lesion or biliary ductal dilatation is present. The gallbladder is contracted with no evidence of radiopaque gallstones, gallbladder wall thickening, or obvious pericholecystic inflammatory changes. PANCREAS: Unremarkable. SPLEEN: Unremarkable. ADRENAL GLANDS: Unremarkable. KIDNEYS AND URETERS: The kidneys are normal in size, shape, and attenuation. No hydronephrosis, hydroureter, or calculi seen. Minimal symmetric perinephric stranding. BLADDER: Unremarkable. GASTROINTESTINAL TRACT: The stomach is unremarkable. The small bowel is normal in caliber. There is no obstruction. No colonic wall thickening or inflammatory change. No free air or free fluid. ABDOMINAL WALL: No significant hernia is appreciated. LYMPH NODES: Normal. VASCULAR: Normal caliber aorta. Mild atherosclerotic calcifications. PELVIC VISCERA: The prostate and seminal vesicles are unremarkable. Penile prosthesis with fluid reservoir in the left anterior pelvis. OSSEOUS STRUCTURES: Multilevel degenerative changes are noted in the spine. Hardware present at the spinous processes of the L4-L5 level. Evaluation of the spinal canal for epidural abscess is limited. The spinal canal appears patent, although there is prominent thickening of the ligamentum flavum at the L5-S1 level. The L4-L5 level at the site of the hardware is not well evaluated, as there is artifact at this level. There is question of additional prominent thickening of the right ligamentum flavum at this level resulting in narrowing of the spinal canal. Artifact on the previous study from 2017 at this level limits comparison. IMPRESSION: 1. No acute findings in the abdomen or pelvis. No inflammatory changes. 2. Hardware which is in place at the spinous processes at the L4-L5 level limited evaluation at this level with artifact present. There is suggestion of prominent thickening of the right ligamentum flavum which results in narrowing of the spinal canal. Focal epidural abscess is not excluded at this level. Comparison to previous is limited, due to artifact being more prominent on the prior study at this level. MRI is a more sensitive test for epidural abscess, although utility may be limited given the presence of hardware and probable significant artifact. CT myelogram could also be considered.
--- NOTE | 2018-03-06 23:56 | History & Physical ---
Luigi Cronin 03/06/18 5734: General Information and HPI MD Statement: I have seen and personally examined REYNALDO LORA and documented this H&P. The patient is a 72 year old M who presented with a patient stated chief complaint of altered mental status. Exam Limitations: confusion History of Present Illness: Patient is a 72 year old male with past medical history of insulin pump dependent diabetes mellitus, recent back surgery X 2 (September 2017) at [place], parkinsons disease, multiple TIAs, hypertension, LA with no stent, COPD on 3L and CPAP at night, cardiac cath X3, anxiety and depresion. Patient brought to ED by EMS after his found him passed out on the floor. On EMS arrival, blood sugars were 20 where he was given oral glucose by paramedics arriving to ED in a shaking state. As per patient, he woke up this morning at 8AM with his usual back pain and wasnt able to go to shower and stayed in bed. He was unsure of events from the morning until his arrival to the ED. Patient gabbi had removed his insulin pump at that time. Patient reports a previous event of losing consciousness prior to his spine sugery where he fell and hit his head but did not have further recollection of the situation. Patient states to have also fallen a couple of days ago with no further memory. He lives with his at home and uses a walker, cane and wheelchair at baseline since his spinal surgery. He claims to check his blood sugars 6-8 times ranging from 80-200. No change in insulin regimen since 3 months ago by his nurse practitioner (Ana Luisa). contacted by phone for further information, Melba. states she got back from work at 6PM to have found the patient passed out, cold, diaphoretic and she removed his insulin pump and called EMS. Previous admission 02/14/17-02/15/17 for rule out ACS and treated for a COPD. ROS: +Headache, +SOB, +Chest Pressure after dye for CT abdomen/pelvis + Constipation (last BM 3 days ago) Spine Surgeon: Dr. 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 Past History Travel History Traveled to [place] past 21 day No Medical History Neurological: Parkinson's disease, TIA EENT: glaucoma Cardiovascular: hypertension, hyperlipidemia, myocardial infarction, PERIODIC HYPOTENSION Respiratory: COPD Gastrointestinal: NONE Hepatic: NONE Renal: NONE Musculoskeletal: NONE, fibromyalgia Psychiatric: anxiety, depression Endocrine: diabetes Blood Disorders: NONE Cancer(s): NONE PHYSICAL THERAPY TECHNICIAN/Reproductive: NONE History of MRSA: No History of VRE: No History of CDIFF: No Surgical History Surgical History: CARDIAC CATH X 3 (ST LOUS MORE THAN 10 YEARS AGO) MULTIPLE SHOULDER, KNEE, WRIST, JAW, SINUS SURGERIES Past Family/Social History Psychosocial History Services at Home: None Smoking Status: Never Smoked ETOH Use: occasional use Illicit Drug Use: denies illicit drug use Review of Systems Review of Systems Constitutional: Denies: see HPI. Exam & Diagnostic Data Last 24 Hrs of Vital Signs/I&O Vital Signs Date Time Temp Pulse Resp B/P B/P Pulse O2 O2 Flow FiO2 Mean Ox Delivery Rate 03/065 98.5 72 20 142/78 97 Room Air 03/068 98.1 74 15 157/74 97 Room Air 03/06 2003 97.6 77 16 133/70 94 Room Air 03/06 1914 95.1 86 18 204/90 99 Room Air Intake & Output 03/07 0800 03/07 0000 03/06 1600 Intake Total 1480 Output Total Balance 1480 Intake, IV 1480 Patient 223 lb Weight Weight Estimated Measurement Method Physical Exam General Appearance Alert, Oriented X3, Cooperative, Mild Distress, Oriented but confused Skin No Rashes, No Breakdown Skin Temp/Moisture Exam: Cool/Dry HEENT EOMI, Pupils significantly constricted, Mucous membranes dry Neck No thryomegaly, +2 Carotid Pulse wo Bruit, No LAD Cardiovascular Normal S1, Normal S2, Tachycardia Lungs Clear to Auscultation, Normal Air Movement Abdomen Tight, no sensation, normal bs Neurological Residual right sided weakness, gait unassessed, no slurring of speech Parkinsons resting tremor in bilateral upper extremities CN intact Extremities No Clubbing, No Cyanosis, No Edema Vascular Normal Pulses, Pulses Symmetrical Last 24 Hrs of Labs/John: Laboratory Tests 03/06/18 2250: Lactic Acid 1.2 03/06/182108: Urine Color YEL, Urine Clarity CLEAR, Urine pH 6.5, Ur Specific [place] 1.020, Urine Protein NEG, Urine Ketones NEG, Urine Nitrite NEG, Urine Bilirubin NEG, Urine Urobilinogen 0.2, Ur Leukocyte Esterase NEG, Ur Microscopic EXAM NOT REQUIRED, Urine Hemoglobin NEG, Urine Glucose >=1000 H 03/06/18 1920: Anion Gap 12, Estimated GFR > 60, BUN/Creatinine Ratio 14.0, Glucose 71, Hemoglobin A1c Pending, Lactic Acid 3.8 H, Calcium 9.5, Magnesium Pending, Total Bilirubin 0.7, AST 29, ALT 44, Alkaline Phosphatase 70, Creatine Kinase 67 , Troponin I < 0.01, Total Protein 7.8, Albumin 4.4, Globulin 3.4, Albumin/ Globulin Ratio 1.3, CBC w Diff NO MAN DIFF REQ, RBC 4.60 L, MCV 94.7 H, MCH 32.1 H, MCHC 33.9, RDW 13.8, MPV 9.4, Gran % 87.4 H, Lymphocytes % 5.5 L, Monocytes % 6.6, Eosinophils % 0.4, Basophils % 0.1, Absolute Granulocytes 12.6 H, Absolute Lymphocytes 0.8 L, Absolute Monocytes 1.0 H, Absolute Eosinophils 0.1, Absolute Basophils 0 Microbiology 03/06 2300 BLOOD: Blood Culture - RECD 03/06 2250 BLOOD: Blood Culture - RECD Diagnostic Data EKG Results NSR 85, Diffuse peaked T waves CXR Results Negative Assessment/Plan Assessment: Patient is a 72 year old male with past medical history of insulin pump dependent diabetes mellitus, recent back surgery X 2 (Jul/September 2017) at [place], parkinsons disease, multiple TIAs, hypertension, LA with no stent, COPD ( nonsmoker) on 3L and CPAP at night, cardiac cath X3, anxiety and depresion. Patient presented after being found passed out by his . EMS BS of 20 found to be 90 on admission after oral glucose. Hypothermia of 95.1. CXR negative. CT abd/pelvis possible epidural abscess that warrants MRI. Leukocytosis with granulocytes. Lactic acid 3.8 resolved to 1.2. Chest pressure pain status post dye from CT abd/pelvis. EMERGENCY DEPARTMENT: Fluids + Roceph X 1 + Kdur 40meq for K of 3.5 Vitals: 95.1 normalized to 98.5, 204/90 --> 142/78, 86, EKG: NSR 85, diffuse peaked T waves Troponin: 0.01 Utox: negvative CBC: WBC: 14.4 (87.4% granulocytes), Hgb: 14.8, Hct: 43.5, Plt: 254 Chemistry: 144, 3.5, Cl 103, CO2 29, BUN 14, Cr 1.0, glucose 71 Lactic Acid: 3.8 --> 1.2 PROBLEM LIST: 1. SYNCOPE 2. HYPOGLYCEMIA 3. HYPOTHERMIA 4. LEUKOCYTOSIS 5. Chronic Medical Conditions (COPD, HTN, HLD) 6. Parkinsons Disease SYNCOPE Patients syncopal episode likely due to hypoglycemia given history of insulin dependent DM and a blood sugar of 20 upon arrival of EMS. However, patient has a history of TIAs and cardiac catherizations. Therefore, a cardiogenic cause such as arrythmia cannot be ruled out. In addition, a neurogenic cause should be considered. ECHO 2017 >60% EF. * Admit to ICU for further monitoring of arrythmias * Q4 Neurochecks * Neurology consultation * ECHO * CT Head/Carotid Dopplers * Serial Troponin/EKG (abnormal chest pressure after dye for CT abd/pelvis) HYPOGLYCEMIA Patient found to have BS of 20 by EMS with insulin pump active. Insulin pump removed by his prior to admission. * Endocrinology consultation warranted * Accu-Checks * Encourage PO intake * ISS HYPOTHERMIA Temperature of 95.1 in the emergency room. Resolved to 98.5. * Monitor in ICU for hypothermia * Monitor for signs of sepsis given elevated WBC (14.1 with granulocytosis) * Vitals Q Shift LEUKOCYTOSIS Elevated white count of 14.1 with granulocytosis. Recent spinal surgeries July 2016, September [address] Codey Suh from [facility]. Patient having consistent back pain even since surgeries. He is afebrile. CT abdomen/pelvis demonstratedl focal epidural abscess that cannot be excluded and MRI warranted. CXR and UA dont show signs of infection at this time. * MRI for possible epidural abscess * F/U Blood cultures, sputum cultures, urine cultures * Monitor CBC for further leukocytosis * Vitals Q Shift; monitor for fevers CHRONIC MEDICAL CONDITIONS Patients chronic medical conditions include hypertension, hyperlipidemia, COPD ( 3L/CPAP at night), anxiety, depression) * Patient CMR done by [employer] Ann: -continue the patient on his home meds including amlodipine, aspirin, statin, bupropion, donepezil, fludrocortisone, latanoprost, metoprolol. PARKINSONS DISEASE Patient had significant resting tremors on admission. Claims his diagnosis was a long time ago. Residual right sided weakness from a previous stroke of undetected time/course. CODE STATUS: Full Code DVT PPx: Heparin SC Diet: Consistent Carbohydrate 3 As Ranked By This Provider Problem List: 1. Diabetic hypoglycemia 2. COPD (chronic obstructive pulmonary disease) Core Measures/Misc (04/11) Acute Coronary Syndrome ACS Diagnosis: No Congestive Heart Failure Congestive Heart Failure Diagnosis No Cerebrovascular Accident CVA/TIA Diagnosis: No VTE (View Protocol) VTE Risk Factors Age>40 No Mechanical VTE Prophylaxis d/t N/A MechProphylax Ordered No VTE Pharm Prophylaxis d/t NA PharmProphylax ordered Sepsis (View protocol) Sepsis Present: No If YES complete Sepsis Event Note If YES complete Sepsis Event Note Shivani Gamble 03/07/18 0108: Core Measures/Misc (04/11) Cerebrovascular Accident CVA/TIA Diagnosis: Yes NIH Stroke Scale: Total 2 Sepsis (View protocol) If YES complete Sepsis Event Note If YES complete Sepsis Event Note Resident Review Statement Resident Statement: examined this patient, discussed with internet application developer, agreed with internet application developer, discussed with family Other Findings: Patient is a 72-year-old male with past medical history significant for Parkinson's disease, Stroke and TIA > 10 years ago with residual right sided weakness, hypertension, hyperlipidemia, LA status post cardiac cath 10 years ago , anxiety, diabetes on insulin pump at home, came in with a chief complaint of passing out earlier today. Patient states that around 8 AM he got up and went to shower however he felt his back was sore and came back to the on bed. Next thing he remembers that around 6 PM his discovered him on the floor. Patient states that he does not remember anything in between this time. I called the to obtain further history, she states that when she came home around 6 PM, she found him lethargic: Diaphoretic. He was lying on the floor and he did not feel like himself and did not recognize. She immediately called EMS at that time and his blood sugar was 20 when checked by EMS. Patient states that he had a similar episode less than a year ago before he had his spine surgery. Patient has had two spine surgeries with Dr. Codey Alcazar at [place] in July 2016 and September 2017. reports that patient has had persistent back pain despite the surgeries. On review of system, patient reports of 2/10 headache, pressure-like chest discomfort which started after CT chest with IV contrast, and some dyspnea, patient denies any fever/chills/dizziness/abdominal discomfort/burning micturition/pain or numbness in legs. 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 He has never smoked. Patient states that he uses CPAP at home at night. He checks his blood sugar 6-8 times a day, and range is usually from 80-200. Patient states that his blood sugars are pretty well controlled. He follows up with an service station console operator nurse practitioner at [place]. Labs and vitals as above. Chest x-ray in the ER, Limited study. No convincing acute cardiopulmonary process. CAT - CT ABD & PELVIS W IV CONTRAST-1. No acute findings in the abdomen or pelvis. No inflammatory changes. 2. Hardware which is in place at the spinous processes at the L4-L5 level limited evaluation at this level with artifact present. There is suggestion of prominent thickening of the right ligamentum flavum which results in narrowing of the spinal canal. Focal epidural abscess is not excluded at this level. Comparison to previous is limited, due to artifact being more prominent on the prior study at this level. MRI is a more sensitive test for epidural abscess, although utility may be limited given the presence of hardware and probable significant artifact. CT myelogram could also be considered. Problem list #1 unwitnessed syncopal episode #2 hypoglycemia in insulin-dependent diabetes mellitus #3 chest discomfort, rule out ACS #4 history of COPD #5 history of hypertension #6 history of hyperlipidemia #7 history of Parkinson's disease Assessment and plan Patient will be admitted to telemetry floor for closer monitoring. Will evaluate for any underlying arrhythmias. His syncopal episode could be due to hypoglycemia versus arrhythmia versus vasovagal versus a neurological process. Will obtain CT head without contrast, every 4 neuro checks. Will get carotid Doppler. Patient had an echocardiogram done last year which showed normal left ventricular ejection fraction visually estimated at > 60%. Serial troponin and EKG for chest discomfort. Will replete his potassium. Patient needs an MRI spine to further evaluate for his questionable epidural abscess. Which if comes positive, patient would need another surgery for removal of hardware. We will continue his CPAP at bedtime. Temperature is stable at 98.5 now, will continue to do vitals every shift. Chest x-ray/UA showed no significant source of infection. Patient's insulin pump is off, will get endocrinology consult in a.m. fingersticks 3 times daily and at bedtime, will start on low-dose NovoLog sliding scale. Follow-up blood cultures. ID consult in am. Patient's CMR was done by the pharmacy graduate intern Ann, will continue the patient on his home meds including amlodipine, aspirin, statin, bupropion, donepezil, fludrocortisone, latanoprost, metoprolol. DVT prophylaxis subcutaneous heparin Patient is full code. Benji Alberto MD 03/07/18 0416: General Information and HPI MD Statement: I have seen and personally examined REYNALDO LORA and documented this H&P. The patient is a 72 year old M who presented with a patient stated chief complaint of syncope hypothermia sepsis []. Source of Information: patient Exam Limitations: confusion Allergies/Medications Allergies: Coded Allergies: morphine (Mild, RASH, ITCHY 10/02/17) Home Med list Albuterol Sulfate (Proair Hfa) 90 MCG HFA.AER.AD 2 PUF INH PRN DYSPNEA ( Reported) Amlodipine (Norvasc) 2.5 MG TABLET 1 TAB PO DAILY HEART/BP (Reported) Aspirin (Ecotrin*) 81 MG TABLET.DR 1 TAB PO DAILY HEART/BLOOD (Reported) Atorvastatin Calcium 80 MG TABLET 0.5 TAB PO 1700 CHOLESTEROL (Reported) Budesonide/Formoterol Fumarate (Symbicort 80-4.5 Mcg Inhaler) 80 MCG-4.5 MCG/ ACTUATION HFA.AER.AD 2 PUF INH PRN SOB (Reported) Bupropion HCl (Bupropion XL) 300 MG TAB.ER.24H 1 TAB PO QAM DEPRESSION ( Reported) Cyanocobalamin (Vitamin B-12) (Vitamin B12) (Unknown Strength) TABLET (Unknown Dose) PO DAILY SUPPLEMENT (Reported) Donepezil HCl (Aricept) 10 MG TABLET 1 TAB PO QAM MEMORY (Reported) Fludrocortisone Acetate 0.1 MG TABLET 0.5 TAB PO DAILY ORTHOSTATIC HYPOTENSION (Reported) Insulin Aspart (Novolog) (Unknown Strength) VIAL (Unknown Dose) DIABETES - PUMP (Reported) Latanoprost (Xalatan) 0.005 % DROPS 1 GTT OU QPM GLAUCOMA (Reported) Loratadine (Claritin) 10 MG TABLET 1 TAB PO DAILY ALLERGIES (Reported) Metoprolol Succ XL (Toprol XL) 25 MG TAB.ER.24H 0.5 TAB PO QAM BP (Reported) Rotigotine (Neupro) 1 MG/24 HOUR PATCH.TD24 1 PATCH TOP QAM PARKINSONS ( Reported) Tiotropium Pyatt (Spiriva) 18 MCG CAP.W.DEV 1 CAP INH QAM COPD (Reported) Tramadol HCl 50 MG TABLET 1 TAB PO AD PRN PAIN (Reported) Ubidecarenone (Co Q-10) (Unknown Strength) CAPSULE (Unknown Dose) PO DAILY SUPPLEMENT (Reported) Past History Medical History Neurological: Parkinson's disease, TIA EENT: glaucoma Cardiovascular: hypertension, hyperlipidemia, myocardial infarction Respiratory: COPD Musculoskeletal: fibromyalgia Psychiatric: anxiety, depression Endocrine: diabetes Surgical History Surgical History: CARDIAC CATH X 3 (ST LOUS MORE THAN 10 YEARS AGO) MULTIPLE SHOULDER, KNEE, WRIST, JAW, SINUS SURGERIES Past Family/Social History Psychosocial History Smoking Status: Never Smoked ETOH Use: occasional use Illicit Drug Use: denies illicit drug use Review of Systems Review of Systems Constitutional: Reports: see HPI. Exam & Diagnostic Data Last 24 Hrs of Vital Signs/I&O Vital Signs Date Time Temp Pulse Resp B/P B/P Pulse O2 O2 Flow FiO2 Mean Ox Delivery Rate 03/07 0330 81 99 03/07 0210 98.2 86 20 148/70 98 Nasal 3.0L Cannula 03/06 2345 98.5 72 20 142/78 97 Room Air 03/068 98.1 74 15 157/74 97 Room Air 03/06 2003 97.6 77 16 133/70 94 Room Air 03/06 1914 95.1 86 18 204/90 99 Room Air Intake & Output 03/07 0800 03/07 0000 03/06 1600 Intake Total 1480 Output Total 700 Balance -700 1480 Intake, IV 1480 Output, Urine 700 Patient 223 lb Weight Weight Estimated Measurement Method Physical Exam General Appearance Alert, Cooperative, Mild Distress, Oriented but confused Skin Temp/Moisture Exam: Cool/Dry Sepsis Skin Exam (color): Normal for Ethnicity HEENT EOMI, Pupils significantly constricted, Mucous membranes dry Neck No thryomegaly, +2 Carotid Pulse wo Bruit, No LAD Lymphatic Axillary nl, Cervical nl Cardiovascular Regular Rate, Normal S1, Normal S2, Tachycardia Lungs Clear to Auscultation, Normal Air Movement Abdomen Tight, no sensation, normal bs Neurological Residual right sided weakness, gait unassessed, no slurring of speech Parkinsons resting tremor in bilateral upper extremities CN intact Extremities No Clubbing, No Cyanosis, No Edema Vascular Normal Pulses, Pulses Symmetrical Sepsis Peripheral Pulse Location: Dorsalis Pedis Sepsis Peripheral Pulse Exam: Normal Sepsis Cap Refill Exam: <2 Sec Last 24 Hrs of Labs/John: Laboratory Tests 03/06/182249: Lactic Acid 1.2 03/06/182108: Urine Color YEL, Urine Clarity CLEAR, Urine pH 6.5, Ur Specific [place] 1.020, Urine Protein NEG, Urine Ketones NEG, Urine Nitrite NEG, Urine Bilirubin NEG, Urine Urobilinogen 0.2, Ur Leukocyte Esterase NEG, Ur Microscopic EXAM NOT REQUIRED, Urine Hemoglobin NEG, Urine Glucose >=1000 H 03/06/181919: Anion Gap 12, Estimated GFR > 60, BUN/Creatinine Ratio 14.0, Glucose 71, Hemoglobin A1c Pending, Lactic Acid 3.8 H, Calcium 9.5, Magnesium 2.2, Total Bilirubin 0.7, AST 29, ALT 44, Alkaline Phosphatase 70, Creatine Kinase 67, Troponin I < 0.01, Total Protein 7.8, Albumin 4.4, Globulin 3.4, Albumin/ Globulin Ratio 1.3, CBC w Diff NO MAN DIFF REQ, RBC 4.60 L, MCV 94.7 H, MCH 32.1 H, MCHC 33.9, RDW 13.8, MPV 9.4, Gran % 87.4 H, Lymphocytes % 5.5 L, Monocytes % 6.6, Eosinophils % 0.4, Basophils % 0.1, Absolute Granulocytes 12.6 H, Absolute Lymphocytes 0.8 L, Absolute Monocytes 1.0 H, Absolute Eosinophils 0.1, Absolute Basophils 0 Microbiology 03/07 0415 UPPER RESP: Surveillance Culture - ORD 03/06 2300 BLOOD: Blood Culture - RECD 03/06 2250 BLOOD: Blood Culture - RECD Core Measures/Misc (04/11) Sepsis (View protocol) If YES complete Sepsis Event Note If YES complete Sepsis Event Note Attending MD Review Statement Attending Statement Attending MD Statement: examined this patient, discuss w/resident/PA/AUTOMOBILE UPHOLSTERER, agreed w/resident/PA/AUTOMOBILE UPHOLSTERER, reviewed EMR data (avail), amended to note Attending Assessment/Plan: This patient is a 72-year-old white male with a significant past medical history for Parkinson's disease, Stroke > 10 years ago with residual right sided weakness, hypertension, hyperlipidemia, LA status post cardiac cath 10 years ago , anxiety, diabetes on insulin pump at home, came in with a chief complaint of passing out earlier today. The patient states that around 8 AM he got up and went to shower however he felt his back was sore and came back to bed. Next thing he remembers that around 6 PM his discovered him on the floor. Patient states that he does not remember anything in between this time. EMS was called and found him to have a blood sugar of 20. Upon evaluation in the ER the patient is found to be hypothermic 95.1, has a leukocytosis of 14.4, lactic acid 3.8, CT headno acute disease, chest x-rayno acute disease, and CT abdomen and pelvisno acute findings however future evaluation of L4-L5 L5-S1 should be sought given artifact found. Admit to telemetry for syncope, hypoglycemia and sepsis of unknown origin. The patient does not have an epidural abscess the CT scan just says that it cannot be excluded. Serial troponin and EKG. Low-dose NovoLog sliding scale. Follow-up blood cultures. ID consult in am. FULL CODE
--- NOTE | 2018-03-07 01:24 | CT SCAN REPORT ---
EXAMINATION: CT HEAD WITHOUT CONTRAST CLINICAL INFORMATION: Syncope COMPARISON: 10/02/2017 TECHNIQUE: Contiguous axial imaging was performed from the skull base to vertex without intravenous contrast. DLP: 702 mGy-cm. FINDINGS: Of note, there is contrast remaining on this study from the previous CT of the abdomen and pelvis. There is no evidence of acute intracranial hemorrhage or territorial infarction. No abnormal mass effect or midline shift is seen. Contreras to white matter differentiation is well preserved. No extra-axial fluid collections are identified. No hydrocephalus. Proportional prominence of the ventricles and sulcal spaces is consistent with mild volume loss. Patchy periventricular and deep white matter hypoattenuation is consistent with mild small vessel ischemic changes. The osseous structures and soft tissues are normal. The mastoid air cells are well aerated. Moderate opacification of the right maxillary sinus with internal calcification, appearing chronic. Mild opacification of the left maxillary sinus. IMPRESSION: No acute intracranial pathology. Mild volume loss with small vessel ischemic change. Chronic right maxillary sinus opacification.
[2018-03-07 04:45] LABS: ABSOLUTE BASOPHIL COUNT 0 /CUMM (0.0-0.2); ABSOLUTE EOSINOPHIL COUNT 0 /CUMM (0.0-0.7); ABSOLUTE GRANULOCYTE CT 9.3 /CUMM (1.4-6.5); ABSOLUTE LYMPH COUNT 0.7 /CUMM (1.2-3.4); ABSOLUTE MONOCYTE COUNT 0.8 /CUMM (0.10-0.60); BASOPHIL % 0 % (0.0-2.0); EOSINOPHIL % 0.2 % (0-5); GRANULOCYTE % 86.3 % (42.2-75.2); HEMATOCRIT 39.5 % (42-52); MEAN CORPUSCULAR HGB CONC 33.7 G/DL (33.0-37.0); MEAN CORPUSCULAR VOLUME 94.8 FL (80.0-94.0); PLATELET COUNT 207 /CUMM (130-400); RBC DISTRIBUTION WIDTH 14.1 % (11.5-14.5); RED BLOOD CELL CT 4.17 /CUMM (4.70-6.10); WHITE BLOOD CELL COUNT 10.8 /CUMM (4.8-10.8)
--- NOTE | 2018-03-07 07:26 | PN- Resident CRCU ---
RobertoValadez 03/07/18 0725: Subjective HPI/CRCU Issues: Mild hypothermia (Resolved) Syncope due to hypoglycemia.(Resolved) Reactive leukocytosis. History of COPD on 3 L of home oxygen. History of obstructive sleep apnea on CPAP at nighttime History of hypertension and hyperlipidemia History of diabetes on insulin pump History of CAD status post cardiac catheterization (no stent placement) x 3 History of Parkinson disease History of anxiety and depression History of back pain status post recent surgery. 24 Hour Events: No overnight events. Patient remained afebrile. Seen and examined this morning. Patient reported tiredness, itchiness and back pain 03/04. Patient also reported that he is feeling dizzy since yesterday. He also reported soreness of throat after potassium pill. Patient denied chest pain, palpitation , nausea, vomiting, chills, fever, abdominal pain and dysuria. Patient is on 3 L of oxygen that's his home oxygen requirement and maintaining saturation 99%. Objective Vital Signs & I&O Last 8 Hrs of Vitals and I&O: Intake & Output 03/07 1600 03/07 0800 03/07 0000 Intake Total 400 1480 Output Total 1700 Balance -1300 1480 Intake, IV 1480 Intake, Oral 400 Output, Urine 1700 Patient 230 lb 223 lb Weight Weight Bed scale Estimated Measurement Method Laboratory Tests 03/07 03/07 03/07 1220 1200 0410 Chemistry Sodium (137 - 145 mmol/L) 135 L Cancelled 134 L Potassium (3.5 - 5.1 mmol/L) 4.2 Cancelled 6.0 *H Chloride (98 - 107 mmol/L) 102 Cancelled 101 Carbon Dioxide (22 - 30 mmol/L) 27 Cancelled 20 L Anion Gap (5 - 16) 6 Cancelled 13 BUN (9 - 20 mg/dL) 16 Cancelled 20 Creatinine (0.7 - 1.2 mg/dL) 0.9 Cancelled 1.0 Estimated GFR (>60 ml/min) > 60 > 60 BUN/Creatinine Ratio (7 - 25 %) 17.8 Cancelled 20.0 Glucose (65 - 99 mg/dL) 453 H Calcium (8.4 - 10.2 mg/dL) 8.8 Total Bilirubin (0.2 - 1.3 mg/dL) 0.8 AST (17 - 59 U/L) 29 ALT (21 - 72 U/L) 44 Alkaline Phosphatase (< 127 U/L) 72 Total Protein (6.3 - 8.2 g/dL) 6.7 Albumin (3.5 - 5.0 g/dL) 3.8 Globulin (1.9 - 4.2 gm/dL) 2.9 Albumin/Globulin Ratio (1.1 - 2.2 %) 1.3 Hematology CBC w Diff MAN DIFF ORDERED WBC (4.8 - 10.8 /CUMM) 10.8 RBC (4.70 - 6.10 /CUMM) 4.17 L Hgb (14.0 - 18.0 G/DL) 13.3 L Hct (42 - 52 %) 39.5 L MCV (80.0 - 94.0 FL) 94.8 H MCH (27.0 - 31.0 PG) 32.0 H MCHC (33.0 - 37.0 G/DL) 33.7 RDW (11.5 - 14.5 %) 14.1 Plt Count (130 - 400 /CUMM) 207 MPV (7.4 - 10.4 FL) 10.0 Gran % (42.2 - 75.2 %) 86.3 H Lymphocytes % (20.5 - 51.1 %) 6.4 L Monocytes % (1.7 - 9.3 %) 7.1 Eosinophils % (0 - 5 %) 0.2 Basophils % (0.0 - 2.0 %) 0 Absolute Granulocytes (1.4 - 6.5 /CUMM) 9.3 H Absolute Lymphocytes (1.2 - 3.4 /CUMM) 0.7 L Absolute Monocytes (0.10 - 0.60 /CUMM) 0.8 H Absolute Eosinophils (0.0 - 0.7 /CUMM) 0 Absolute Basophils (0.0 - 0.2 /CUMM) 0 Platelet Estimate (ADEQUATE) ADEQUATE Polychromasia 1+ Toxicology Urine Opiates Screen (>2000 NG/ML) < 100 Methadone Screen (>300 NG/ML) < 40 Barbiturate Screen (>200 NG/ML) < 60 Ur Phencyclidine Scrn (>25 NG/ML) < 6.00 Amphetamines Screen (>1000 NG/ML) 182 U Benzodiazepines Scrn (>200 NG/ML) < 85 Urine Cocaine Screen (>300 NG/ML) < 50 Urine Cannabis Screen (>50 NG/ML) < 5.00 08/12 08/12 2250 2108 Chemistry Lactic Acid (0.7 - 2.1 mmol/L) 1.2 Urines Urine Color (YEL,AMB,STR) YEL Urine Clarity (CLEAR) CLEAR Urine pH (5.0 - 8.0) 6.5 Ur Specific [place] (1.001 - 1.035) 1.020 Urine Protein (NEG,<30 MG/DL) NEG Urine Ketones (NEG) NEG Urine Nitrite (NEG) NEG Urine Bilirubin (NEG) NEG Urine Urobilinogen (0.1 - 1.0 EU/dl) 0.2 Ur Leukocyte Esterase (NEG) NEG Ur Microscopic EXAM NOT REQUIRED Urine Hemoglobin (NEG) NEG Urine Glucose (N MG/DL) >=1000 H 03/06 1920 Chemistry Sodium (137 - 145 mmol/L) 144 Potassium (3.5 - 5.1 mmol/L) 3.5 Chloride (98 - 107 mmol/L) 103 Carbon Dioxide (22 - 30 mmol/L) 29 Anion Gap (5 - 16) 12 BUN (9 - 20 mg/dL) 14 Creatinine (0.7 - 1.2 mg/dL) 1.0 Estimated GFR (>60 ml/min) > 60 BUN/Creatinine Ratio (7 - 25 %) 14.0 Glucose (65 - 99 mg/dL) 71 Hemoglobin A1c (4.2 - 5.8 %) 9.4 H Lactic Acid (0.7 - 2.1 mmol/L) 3.8 H Calcium (8.4 - 10.2 mg/dL) 9.5 Magnesium (1.6 - 2.3 mg/dL) 2.2 Total Bilirubin (0.2 - 1.3 mg/dL) 0.7 AST (17 - 59 U/L) 29 ALT (21 - 72 U/L) 44 Alkaline Phosphatase (< 127 U/L) 70 Creatine Kinase (55 - 170 U/L) 67 Troponin I (<0.11 ng/ml) < 0.01 Total Protein (6.3 - 8.2 g/dL) 7.8 Albumin (3.5 - 5.0 g/dL) 4.4 Globulin (1.9 - 4.2 gm/dL) 3.4 Albumin/Globulin Ratio (1.1 - 2.2 %) 1.3 Hematology CBC w Diff NO MAN DIFF REQ WBC (4.8 - 10.8 /CUMM) 14.4 H RBC (4.70 - 6.10 /CUMM) 4.60 L Hgb (14.0 - 18.0 G/DL) 14.8 Hct (42 - 52 %) 43.5 MCV (80.0 - 94.0 FL) 94.7 H MCH (27.0 - 31.0 PG) 32.1 H MCHC (33.0 - 37.0 G/DL) 33.9 RDW (11.5 - 14.5 %) 13.8 Plt Count (130 - 400 /CUMM) 254 MPV (7.4 - 10.4 FL) 9.4 Gran % (42.2 - 75.2 %) 87.4 H Lymphocytes % (20.5 - 51.1 %) 5.5 L Monocytes % (1.7 - 9.3 %) 6.6 Eosinophils % (0 - 5 %) 0.4 Basophils % (0.0 - 2.0 %) 0.1 Absolute Granulocytes (1.4 - 6.5 /CUMM) 12.6 H Absolute Lymphocytes (1.2 - 3.4 /CUMM) 0.8 L Absolute Monocytes (0.10 - 0.60 /CUMM) 1.0 H Absolute Eosinophils (0.0 - 0.7 /CUMM) 0.1 Absolute Basophils (0.0 - 0.2 /CUMM) 0 Exam General Appearance: well developed/nourished, no apparent distress, alert, awake Head: atraumatic, normal appearance Neck: normal inspection, supple Respiratory: normal breath sounds, chest non-tender Cardiovascular: regular rate/rhythm Gastrointestinal: normal bowel sounds, non-tender Extremities: normal inspection, pedal edema, Hand tremors Skin Temp/Moisture Exam: Warm/Dry Sepsis Skin Exam (color): Normal for Ethnicity Current Medications: Current Medications Sig/Luiza Start time Last Medication Dose Route Stop Time Status Admin Acetaminophen 650 MG Q8P PRN 03/07 0130 AC PO Albuterol Sulfate 3 ML TID 03/07 1400 AC 03/07 INH 1250 Albuterol Sulfate 2 PUF 4 TIMES/DAY PRN 03/07 1257 AC INH Albuterol Sulfate 2 PUF 4 TIMES/DAY 03/07 0105 DC 03/07 INH 0818 Alprazolam 0 .STK-MED ONE 03/07 1034 DC PO Alprazolam 0.5 MG ONCE ONE 03/07 1030 DC 03/07 PO 03/07 1031 1036 Amlodipine Besylate 2.5 MG DAILY 03/07 0900 AC 03/07 PO 0820 Aspirin Buffered 81 MG DAILY 03/07 0900 AC 03/07 PO 0818 Atorvastatin Calcium 40 MG 1700 03/07 1700 AC PO Benzocaine/Menthol 1 [place] Q2P PRN 03/07 1030 AC 03/07 PO 1159 Budesonide/ 2 PUF BID 03/07 0900 AC 03/07 Formoterol Fumarate INH 0821 Bupropion HCl 300 MG QAM 03/07 0900 AC 03/07 PO 0819 Calcium Gluconate 1 GM ONCE ONE 03/07 0715 DC 03/07 Sodium Chloride 100 ML IV 03/07 814 0816 Ceftriaxone Sodium 0 .STK-MED ONE 03/06 2102 DC .ROUTE Ceftriaxone Sodium 1,000 MG DAILY 03/06 2057 DC 03/06 IV 2100 Dextrose/Water 500 ML BOLUS ONE 03/06 1930 DC 03/06 IV 03/06 2029 1930 Diphenhydramine HCl 0 .STK-MED ONE 03/07 0347 DC PO Diphenhydramine HCl 25 MG ONCE ONE 03/07 0345 DC 03/07 PO 03/07 0346 0353 Donepezil HCl 10 MG QAM 03/07 0900 AC 03/07 PO 0818 Fludrocortisone 50 MCG DAILY 03/07 0900 AC 03/07 Acetate PO 0821 Heparin Sodium 5,000 UNIT Q8 03/07 0600 AC 03/07 (Porcine) SC 0637 Insulin Aspart 6 UNITS TIDAC 03/07 0845 AC 03/07 SC 1159 Insulin Aspart 0 TIDAC 03/07 0800 DC SC Insulin Aspart 5 UNITS ONCE ONE 03/07 0600 DC 03/07 SC 03/07 0601 0630 Insulin Aspart 0 .STK-MED ONE 03/07 0352 DC SC Insulin Aspart 0 .STK-MED ONE 03/07 0350 DC SC Insulin Aspart 0 TIDAC 03/07 0345 AC 03/07 SC 1159 Insulin Detemir 10 UNITS AT BEDTIME 03/07 2100 AC SC Insulin Detemir 0 .STK-MED ONE 03/07 0849 DC SC Insulin Detemir 30 UNITS 8AM 03/07 0845 AC 03/07 SC 0852 Latanoprost 1 GTT QPM 03/07 2100 AC OPH Loratadine 10 MG DAILY 03/07 1353 UNVr PO Metoprolol Succinate 12.5 MG QAM 03/07 0900 AC 03/07 PO 0821 Naphazoline HCl/ 1 GTT TID 03/07 1409 UNVr Pheniramine Maleate OPH Phenol 2 SPRAY Q2P PRN 03/07 1415 UNVr EXT Polyethylene Glycol 17 GM DAILY 03/07 0145 AC PO Potassium Chloride 0 .STK-MED ONE 03/07 0146 DC PO Potassium Chloride 40 MEQ ONCE ONE 03/06 2345 DC 03/07 PO 03/06 2346 0157 Senna 187 MG AT BEDTIME 03/07 0145 AC 03/07 PO 0819 Sodium Chloride 3,034.53 ML ONCE 03/06 2045 DC 03/06 IV 2113 Sodium Chloride 1,000 ML Q6H 03/06 1930 CAN IV Sodium Polystyrene 60 ML ONCE ONE 03/07 0600 DC 03/07 Sulfonate PO 03/07 0601 0629 Tiotropium [place] 1 PUF DAILY 03/07 1257 AC INH Impression/Plan Impression/Problem List Impression: 72 YO white M with a significant PMH of Parkinson's disease, 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 Patient was admitted to ICU for hypothermia. We are seeing the patient on ICU floor for following problems. Syncopal episode: -Due to hypoglycemia. Patient had blood sugar level 20 as found by EMS at home. Patient had sweating and dizziness. Could be due to orthosatatic hypotension as he is alrady on fludrocortisone. -Considering patient's significant history of cardiac problem patient will be monitored on tele monitor for any blocks or arrhythmias that caused his syncopal episode. -His trops and EKGs remain negative for any ischemic cardiac injury. -Monitoring his blood sugar level closely. -His blood sugar level this morning was 453. -On carotid Doppler patient had right sided plaque in ICA with normal velocity consistent with munimal 0-49% stenosis and left side is normal. -Follow up echocardiogram results. -Follow up with MRI brain to rule out any neurological cause of syncope. -Follow up EEG to rule out seizures. Hypothermia:(Resolved) -Patient had mild hypothermia with temperature 95.1 -Patient was admitted in ICU for bear hugers although his hypothermia had already been resolved. -This morning his temperature was 98.2 Hyperkalemia:(Resolved) -Patient patient'S potassium level was 3.5 that was repleted and later on his potassium level came back 6.0 -Patient was given 1 Kayexalate and his EKG was showing hyperacute T waves that' s why he was given 1 dose of calcium gluconate. -Repeat k is 4.2 Abnormal imaging study: -On CT scan abdomen and pelvis with IV contrast, there is questionable subdural abscess although patient is afebrile and`his leukocytosis has been resolved. -Patient had lactic acidosis on admission 3.8 that was resolved later 1.2 -He received one dose of ceftriaxone in ED -Radiology recommended further workup for questionable epidural abscess with MRI. -Follow-up with MRI lumbar spine. Throat pain: -Patient reported throat pain after potassium pill. Patient has erythematous throat. -Follow up strep throat swab. -Chloraseptic lozanges and spray as needed. History of diabetes: -Type 1 diabetes diagnosed in 20s according to patient. -Patient was on insulin pump for his baseline requirements. -Patient's insulin pump has been removed by his . -Endocrinology recommended Levemir 30 units subcutaneous in a.m. and 10 units subcutaneous in p.m. -Insulin NovoLog 6 units subcutaneous 3 times a day -Sided NovoLog according to sliding scale -Accu-Cheks History of hypertension and hyperlipidemia: -Continue metoprolol and Lipitor -Continue amlodipine History of COPD/KASSY: -Continue home oxygen 3 L -Continue TRC nebulization as needed -Continue CPAP at nighttime -Continue Symbicort inhaler and Ventolin. History of CAD status post cardiac catheterization: -Continue aspirin History of dementia: -Continue donepezil History of orthostatic hypotension: -Possibly due to adrenal insufficiency. -Continue fludrocortisone 50 g daily. -Check for orthostatic vitals as patient may need another medication for orthosatic hypotension. History of Parkinson disease: -Continue neupro patch 1mg/24hrs History of anxiety and depression; -Continue bupropion History of back pain: -Status post recent back surgery. Follow-up pain pathway for pain management. DVT prophylaxis; Mechanical and subcutaneous heparin CODE STATUS: Full code Problem List: 1. Hypothermia 2. Hyperkalemia Pain Ratin Pain Location: BACK Pain Goal: Remain pain free Pain Plan: PAIN PATHWAY Tomorrow's Labs & Rationales: CBC/ICU BUNDLE Plan DVT/Prophylaxis: mechanical, pharmacological Dank DICKERSON,Neetu 03/07/18 1352: Attending MD Review Statement Attending Sign Off Attending Cosign Statement: I have: examined this patient, reviewed aval EMR data, personally reviewd images, discussd w/resident/PA/CNA GNA, discussed mgmt plan w/dee, discussed mgmt plan w/pt, agreed w/resident/PA/CNA GNA, amended to note. Other Findings: Patient seen and examined, not feeling well. c/o sore throat, red itchy eyes, overall feels exahusted. Vital Signs Date Time Temp Pulse Resp B/P B/P Pulse O2 O2 Flow FiO2 Mean Ox Delivery Rate 03/07 1252 95 Nasal 3.0L Cannula 03/07 0821 90 142/80 03/07 0820 90 142/80 03/07 0550 83 99 03/07 0345 99 CPAP 3.0L 03/07 0330 81 99 03/07 0210 98.2 86 20 148/70 98 Nasal 3.0L Cannula 03/06 2345 98.5 72 20 142/78 97 Room Air 03/06 2148 98.1 74 15 157/74 97 Room Air 03/06 2003 97.6 77 16 133/70 94 Room Air 03/06 1914 95.1 86 18 204/90 99 Room Air on exam; aox3, nad. cv; s1,s2, rrr resp; clear abd; soft, nt, bs+ ext; no edema Laboratory Tests 03/07 03/07 03/07 1220 1200 0410 Chemistry Sodium (137 - 145 mmol/L) 135 L Cancelled 134 L Potassium (3.5 - 5.1 mmol/L) 4.2 Cancelled 6.0 *H Chloride (98 - 107 mmol/L) 102 Cancelled 101 Carbon Dioxide (22 - 30 mmol/L) 27 Cancelled 20 L Anion Gap (5 - 16) 6 Cancelled 13 BUN (9 - 20 mg/dL) 16 Cancelled 20 Creatinine (0.7 - 1.2 mg/dL) 0.9 Cancelled 1.0 Estimated GFR (>60 ml/min) > 60 > 60 BUN/Creatinine Ratio (7 - 25 %) 17.8 Cancelled 20.0 Glucose (65 - 99 mg/dL) 453 H Calcium (8.4 - 10.2 mg/dL) 8.8 Total Bilirubin (0.2 - 1.3 mg/dL) 0.8 AST (17 - 59 U/L) 29 ALT (21 - 72 U/L) 44 Alkaline Phosphatase (< 127 U/L) 72 Total Protein (6.3 - 8.2 g/dL) 6.7 Albumin (3.5 - 5.0 g/dL) 3.8 Globulin (1.9 - 4.2 gm/dL) 2.9 Albumin/Globulin Ratio (1.1 - 2.2 %) 1.3 Hematology CBC w Diff MAN DIFF ORDERED WBC (4.8 - 10.8 /CUMM) 10.8 RBC (4.70 - 6.10 /CUMM) 4.17 L Hgb (14.0 - 18.0 G/DL) 13.3 L Hct (42 - 52 %) 39.5 L MCV (80.0 - 94.0 FL) 94.8 H MCH (27.0 - 31.0 PG) 32.0 H MCHC (33.0 - 37.0 G/DL) 33.7 RDW (11.5 - 14.5 %) 14.1 Plt Count (130 - 400 /CUMM) 207 MPV (7.4 - 10.4 FL) 10.0 Gran % (42.2 - 75.2 %) 86.3 H Lymphocytes % (20.5 - 51.1 %) 6.4 L Monocytes % (1.7 - 9.3 %) 7.1 Eosinophils % (0 - 5 %) 0.2 Basophils % (0.0 - 2.0 %) 0 Absolute Granulocytes (1.4 - 6.5 /CUMM) 9.3 H Absolute Lymphocytes (1.2 - 3.4 /CUMM) 0.7 L Absolute Monocytes (0.10 - 0.60 /CUMM) 0.8 H Absolute Eosinophils (0.0 - 0.7 /CUMM) 0 Absolute Basophils (0.0 - 0.2 /CUMM) 0 Platelet Estimate (ADEQUATE) ADEQUATE Polychromasia 1+ Toxicology Urine Opiates Screen (>2000 NG/ML) < 100 Methadone Screen (>300 NG/ML) < 40 Barbiturate Screen (>200 NG/ML) < 60 Ur Phencyclidine Scrn (>25 NG/ML) < 6.00 Amphetamines Screen (>1000 NG/ML) 182 U Benzodiazepines Scrn (>200 NG/ML) < 85 Urine Cocaine Screen (>300 NG/ML) < 50 Urine Cannabis Screen (>50 NG/ML) < 5.00 03/06 03/06 2250 2109 Chemistry Lactic Acid (0.7 - 2.1 mmol/L) 1.2 Urines Urine Color (YEL,AMB,STR) YEL Urine Clarity (CLEAR) CLEAR Urine pH (5.0 - 8.0) 6.5 Ur Specific [place] (1.001 - 1.035) 1.020 Urine Protein (NEG,<30 MG/DL) NEG Urine Ketones (NEG) NEG Urine Nitrite (NEG) NEG Urine Bilirubin (NEG) NEG Urine Urobilinogen (0.1 - 1.0 EU/dl) 0.2 Ur Leukocyte Esterase (NEG) NEG Ur Microscopic EXAM NOT REQUIRED Urine Hemoglobin (NEG) NEG Urine Glucose (N MG/DL) >=1000 H 03/06 1920 Chemistry Sodium (137 - 145 mmol/L) 144 Potassium (3.5 - 5.1 mmol/L) 3.5 Chloride (98 - 107 mmol/L) 103 Carbon Dioxide (22 - 30 mmol/L) 29 Anion Gap (5 - 16) 12 BUN (9 - 20 mg/dL) 14 Creatinine (0.7 - 1.2 mg/dL) 1.0 Estimated GFR (>60 ml/min) > 60 BUN/Creatinine Ratio (7 - 25 %) 14.0 Glucose (65 - 99 mg/dL) 71 Hemoglobin A1c (4.2 - 5.8 %) 9.4 H Lactic Acid (0.7 - 2.1 mmol/L) 3.8 H Calcium (8.4 - 10.2 mg/dL) 9.5 Magnesium (1.6 - 2.3 mg/dL) 2.2 Total Bilirubin (0.2 - 1.3 mg/dL) 0.7 AST (17 - 59 U/L) 29 ALT (21 - 72 U/L) 44 Alkaline Phosphatase (< 127 U/L) 70 Creatine Kinase (55 - 170 U/L) 67 Troponin I (<0.11 ng/ml) < 0.01 Total Protein (6.3 - 8.2 g/dL) 7.8 Albumin (3.5 - 5.0 g/dL) 4.4 Globulin (1.9 - 4.2 gm/dL) 3.4 Albumin/Globulin Ratio (1.1 - 2.2 %) 1.3 Hematology CBC w Diff NO MAN DIFF REQ WBC (4.8 - 10.8 /CUMM) 14.4 H RBC (4.70 - 6.10 /CUMM) 4.60 L Hgb (14.0 - 18.0 G/DL) 14.8 Hct (42 - 52 %) 43.5 MCV (80.0 - 94.0 FL) 94.7 H MCH (27.0 - 31.0 PG) 32.1 H MCHC (33.0 - 37.0 G/DL) 33.9 RDW (11.5 - 14.5 %) 13.8 Plt Count (130 - 400 /CUMM) 254 MPV (7.4 - 10.4 FL) 9.4 Gran % (42.2 - 75.2 %) 87.4 H Lymphocytes % (20.5 - 51.1 %) 5.5 L Monocytes % (1.7 - 9.3 %) 6.6 Eosinophils % (0 - 5 %) 0.4 Basophils % (0.0 - 2.0 %) 0.1 Absolute Granulocytes (1.4 - 6.5 /CUMM) 12.6 H Absolute Lymphocytes (1.2 - 3.4 /CUMM) 0.8 L Absolute Monocytes (0.10 - 0.60 /CUMM) 1.0 H Absolute Eosinophils (0.0 - 0.7 /CUMM) 0.1 Absolute Basophils (0.0 - 0.2 /CUMM) 0 A/P; 72 y/o M with pmh sig for insulin pump dependent diabetes mellitus, recent back surgery X 2 (Jul/September 2017) at [place], parkinsons disease, multiple TIAs, hypertension, VT with no stent, COPD on 3L and CPAP at night, cardiac cath X3, anxiety and depresion admitted with syncope, hypoglycemia, leukocytosis, high lactate levels. Pt also c/o back pain, hx of soine surgery and cT abd pelvis indeterminate and cannot r/o epidural abcess. Patient received carotid Doppler ultrasound and it does not show any hemodynamically significant stenosis. Seen by endocrinology and Levemir has been adjusted. Please get echocardiogram. Please get MRI of the LS-spine. Leukocytosis and lactate has improved. Will start the patient on antihistamine both oral as well as ophthalmic. Patient also complains of sore throat, agree with starting lozenges and start Chloraseptic Shock. Please also check a rapid strep swab. Continue the rest of the medications. DVT px; Hep sq.
[2018-03-07 08:00] VITALS: BP 142/80
--- NOTE | 2018-03-07 12:45 | ULTRASOUND REPORT ---
EXAMINATION: DUPLEX BILATERAL CAROTID ULTRASOUND CLINICAL INFORMATION: Syncope COMPARISON: None. TECHNIQUE: Duplex bilateral carotid US was performed using real-time ultrasound and Doppler techniques (integrating B-mode 2D vascular images, Doppler spectral analysis and color flow Doppler imaging). These techniques were utilized to interrogate the extracranial carotid and vertebral arteries bilaterally. The degree of stenosis is based off criteria similar to NASCET. FINDINGS: 1. On the right: Plaque is present at the carotid bifurcation but velocity measurements are normal and do not suggest a stenosis of greater than 50% diameter reduction in the right ICA. The vertebral artery is patent demonstrating antegrade flow. The right external carotid artery shows no significant stenosis.. 2. On the left: No plaque is present at the carotid bifurcation and all velocity measurements are normal and do not suggest a stenosis of greater than 50% diameter reduction in the left ICA. The vertebral artery is patent demonstrating antegrade flow. The left external carotid artery shows no significant stenosis.. IMPRESSION: There is plaque present in the right internal carotid artery with normal velocities consistent with a minimal 0-49% stenosis. The left side is normal with no plaque seen.
--- NOTE | 2018-03-07 14:41 | Cons- Neurology ---
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 His found him passed out turned upside down on his bed and he believes he was attempting to get up. EMS was called and blood glucose was found to be 20. On the way here he was tremulous and shivering. He was felt to have "sepsis". He was found to be hypothermic. Initial imaging suggested a possible epidural abscess at S1. Allergies/Medications Allergies: Coded Allergies: morphine (Mild, RASH, ITCHY 10/02/17) Home Med List: Albuterol Sulfate (Proair Hfa) 90 MCG HFA.AER.AD 2 PUF INH PRN DYSPNEA ( Reported) Amlodipine (Norvasc) 2.5 MG TABLET 1 TAB PO DAILY HEART/BP (Reported) Aspirin (Ecotrin*) 81 MG TABLET.DR 1 TAB PO DAILY HEART/BLOOD (Reported) Atorvastatin Calcium 80 MG TABLET 0.5 TAB PO 1700 CHOLESTEROL (Reported) Budesonide/Formoterol Fumarate (Symbicort 80-4.5 Mcg Inhaler) 80 MCG-4.5 MCG/ ACTUATION HFA.AER.AD 2 PUF INH PRN SOB (Reported) Bupropion HCl (Bupropion XL) 300 MG TAB.ER.24H 1 TAB PO QAM DEPRESSION ( Reported) Cyanocobalamin (Vitamin B-12) (Vitamin B12) (Unknown Strength) TABLET (Unknown Dose) PO DAILY SUPPLEMENT (Reported) Donepezil HCl (Aricept) 10 MG TABLET 1 TAB PO QAM MEMORY (Reported) Fludrocortisone Acetate 0.1 MG TABLET 0.5 TAB PO DAILY ORTHOSTATIC HYPOTENSION (Reported) Insulin Aspart (Novolog) (Unknown Strength) VIAL (Unknown Dose) DIABETES - PUMP (Reported) Latanoprost (Xalatan) 0.005 % DROPS 1 GTT OU QPM GLAUCOMA (Reported) Loratadine (Claritin) 10 MG TABLET 1 TAB PO DAILY ALLERGIES (Reported) Metoprolol Succ XL (Toprol XL) 25 MG TAB.ER.24H 0.5 TAB PO QAM BP (Reported) Rotigotine (Neupro) 1 MG/24 HOUR PATCH.TD24 1 PATCH TOP QAM PARKINSONS ( Reported) Tiotropium [place] (Spiriva) 18 MCG CAP.W.DEV 1 CAP INH QAM COPD (Reported) Tramadol HCl 50 MG TABLET 1 TAB PO AD PRN PAIN (Reported) Ubidecarenone (Co Q-10) (Unknown Strength) CAPSULE (Unknown Dose) PO DAILY SUPPLEMENT (Reported) Current Medications: Current Medications Sig/Luiza Start time Last Medication Dose Route Stop Time Status Admin Acetaminophen 650 MG Q8P PRN 03/07 0130 AC PO Albuterol Sulfate 3 ML TID 03/07 1400 AC 03/07 INH 1250 Albuterol Sulfate 2 PUF 4 TIMES/DAY PRN 03/07 1257 AC INH Albuterol Sulfate 2 PUF 4 TIMES/DAY 03/07 0105 DC 03/07 INH 0818 Alprazolam 0 .STK-MED ONE 03/07 1034 DC PO Alprazolam 0.5 MG ONCE ONE 03/07 1030 DC 03/07 PO 03/07 1031 1036 Amlodipine Besylate 2.5 MG DAILY 03/07 0900 AC 03/07 PO 0820 Aspirin Buffered 81 MG DAILY 03/07 0900 AC 03/07 PO 0818 Atorvastatin Calcium 40 MG 1700 03/07 1700 AC PO Benzocaine/Menthol 1 LORNE Q2P PRN 03/07 1030 AC 03/07 PO 1159 Budesonide/ 2 PUF BID 03/07 0900 AC 03/07 Formoterol Fumarate INH 0821 Bupropion HCl 300 MG QAM 03/07 0900 AC 03/07 PO 0819 Calcium Gluconate 1 GM ONCE ONE 03/07 0715 DC 03/07 Sodium Chloride 100 ML IV 03/07 0814 0816 Ceftriaxone Sodium 0 .STK-MED ONE 03/062 DC .ROUTE Ceftriaxone Sodium 1,000 MG DAILY 03/06 2057 DC 03/06 IV 2100 Dextrose/Water 500 ML BOLUS ONE 03/06 193 DC 03/06 IV 08/12 2029 1930 Diphenhydramine HCl 0 .STK-MED ONE 03/07 0347 DC PO Diphenhydramine HCl 25 MG ONCE ONE 03/07 0345 DC 03/07 PO 03/07 0346 0353 Donepezil HCl 10 MG QAM 03/07 0900 AC 03/07 PO 0818 Fludrocortisone 50 MCG DAILY 03/07 0900 AC 03/07 Acetate PO 0821 Heparin Sodium 5,000 UNIT Q8 03/07 0600 AC 03/07 (Porcine) SC 0637 Insulin Aspart 6 UNITS TIDAC 03/07 0845 AC 03/07 SC 1159 Insulin Aspart 0 TIDAC 03/07 0800 DC SC Insulin Aspart 5 UNITS ONCE ONE 03/07 0600 DC 03/07 SC 03/07 0601 0630 Insulin Aspart 0 .STK-MED ONE 03/07 0352 DC SC Insulin Aspart 0 .STK-MED ONE 03/07 0350 DC SC Insulin Aspart 0 TIDAC 03/07 0345 AC 03/07 SC 1159 Insulin Detemir 10 UNITS AT BEDTIME 03/07 2100 AC SC Insulin Detemir 0 .STK-MED ONE 03/07 0849 DC SC Insulin Detemir 30 UNITS 8AM 03/07 0845 AC 03/07 SC 0852 Latanoprost 1 GTT QPM 03/07 2100 AC OPH Loratadine 10 MG DAILY 03/07 1353 AC PO Metoprolol Succinate 12.5 MG QAM 03/07 0900 AC 03/07 PO 0821 Naphazoline HCl/ 1 GTT TID 03/07 1409 AC Pheniramine Maleate OPH Phenol 2 SPRAY Q2P PRN 03/07 1415 AC EXT Polyethylene Glycol 17 GM DAILY 03/07 0145 AC PO Potassium Chloride 0 .STK-MED ONE 03/07 0146 DC PO Potassium Chloride 40 MEQ ONCE ONE 03/06 2345 DC 03/07 PO 03/06 2346 0157 Senna 187 MG AT BEDTIME 03/07 0145 AC 03/07 PO 0819 Sodium Chloride 3,034.53 ML ONCE 03/06 2045 DC 03/06 IV 2113 Sodium Chloride 1,000 ML Q6H 03/06 1930 CAN IV Sodium Polystyrene 60 ML ONCE ONE 03/07 0600 DC 03/07 Sulfonate PO 03/07 0601 0629 Tiotropium [place] 1 PUF DAILY 03/07 1257 AC INH Review of Systems Review of Systems: As per HPI, also reports a sore throat. Also known for dysphagia due to Parkinson's. Past History Travel History Traveled to [place] past 21 day No Medical History Neurological: CVA, Parkinson's disease, TIA EENT: glaucoma Cardiovascular: hypertension, hyperlipidemia, myocardial infarction, syncope, orthostatic hypotension, Diabetic neuropathy, Sensory ataxia Respiratory: COPD Gastrointestinal: NONE Hepatic: NONE Renal: NONE Musculoskeletal: fibromyalgia Psychiatric: anxiety, depression Endocrine: diabetes Blood Disorders: NONE Cancer(s): NONE CONSIGNEE/Reproductive: NONE Surgical History Surgical History: CARDIAC CATH X 3 ([facility] MORE THAN 10 YEARS AGO) MULTIPLE SHOULDER, KNEE, WRIST, JAW, SINUS SURGERIES Psychosocial History Services at Home: None Smoking Status: Never Smoked ETOH Use: occasional use Illicit Drug Use: denies illicit drug use Exam & Diagnostic Data Vital Signs and I&O Vital Signs Date Time Temp Pulse Resp B/P B/P Pulse O2 O2 Flow FiO2 Mean Ox Delivery Rate 03/07 1252 95 Nasal 3.0L Cannula 03/07 1230 Nasal 3.0L Cannula 03/07 0821 90 142/80 03/07 0820 90 142/80 03/07 0800 96 Nasal 3.0L Cannula 03/07 0800 98.2 90 20 142/80 96 Nasal 3.0L Cannula 03/07 0550 83 99 03/07 0345 99 CPAP 3.0L 03/07 0330 81 99 03/07 0210 98.2 86 20 148/70 98 Nasal 3.0L Cannula 03/06 2345 98.5 72 20 142/78 97 Room Air 03/06 2148 98.1 74 15 157/74 97 Room Air 03/06 2003 97.6 77 16 133/70 94 Room Air 03/06 1914 95.1 86 18 204/90 99 Room Air Intake & Output 03/07 1600 03/07 0800 03/07 0000 Intake Total 276 604 9687 Output Total 925 1700 Balance -95 -1300 1480 Intake, IV 110 1480 Intake, Oral 720 400 Number 0 Bowel Movements Output, Urine 925 1700 Patient 230 lb 223 lb Weight Weight Bed scale Estimated Measurement Method Physical Exam: Alert and oriented x3. Obese. Fluent and comprehends. S1 and S2 are normal. RRR. EOMI, REYNA, no eyelid ptosis, visual field - left outer scotomas, face symmetric , tongue midline, uvula raises in midline, TPZ and SCM strong. Bilateral pronator drifts with postural tremor. Tremor is pill rolling left > right and continues at rest. Arms mostly strong, however right leg weakness is evidence 4/5 including in dorsiflexion. Loss of vibration evident to knees. Wide base gait with a positive Romberg. Unstead gait. Toes mute. Hyporeflexive. FNF normal. Last 48 Hours of Lab Results: Laboratory Tests 03/07 03/07 03/07 1220 1200 0410 Chemistry Sodium (137 - 145 mmol/L) 135 L Cancelled 134 L Potassium (3.5 - 5.1 mmol/L) 4.2 Cancelled 6.0 *H Chloride (98 - 107 mmol/L) 102 Cancelled 101 Carbon Dioxide (22 - 30 mmol/L) 27 Cancelled 20 L Anion Gap (5 - 16) 6 Cancelled 13 BUN (9 - 20 mg/dL) 16 Cancelled 20 Creatinine (0.7 - 1.2 mg/dL) 0.9 Cancelled 1.0 Estimated GFR (>60 ml/min) > 60 > 60 BUN/Creatinine Ratio (7 - 25 %) 17.8 Cancelled 20.0 Glucose (65 - 99 mg/dL) 453 H Calcium (8.4 - 10.2 mg/dL) 8.8 Total Bilirubin (0.2 - 1.3 mg/dL) 0.8 AST (17 - 59 U/L) 29 ALT (21 - 72 U/L) 44 Alkaline Phosphatase (< 127 U/L) 72 Total Protein (6.3 - 8.2 g/dL) 6.7 Albumin (3.5 - 5.0 g/dL) 3.8 Globulin (1.9 - 4.2 gm/dL) 2.9 Albumin/Globulin Ratio (1.1 - 2.2 %) 1.3 Hematology CBC w Diff MAN DIFF ORDERED WBC (4.8 - 10.8 /CUMM) 10.8 RBC (4.70 - 6.10 /CUMM) 4.17 L Hgb (14.0 - 18.0 G/DL) 13.3 L Hct (42 - 52 %) 39.5 L MCV (80.0 - 94.0 FL) 94.8 H MCH (27.0 - 31.0 PG) 32.0 H MCHC (33.0 - 37.0 G/DL) 33.7 RDW (11.5 - 14.5 %) 14.1 Plt Count (130 - 400 /CUMM) 207 MPV (7.4 - 10.4 FL) 10.0 Gran % (42.2 - 75.2 %) 86.3 H Lymphocytes % (20.5 - 51.1 %) 6.4 L Monocytes % (1.7 - 9.3 %) 7.1 Eosinophils % (0 - 5 %) 0.2 Basophils % (0.0 - 2.0 %) 0 Absolute Granulocytes (1.4 - 6.5 /CUMM) 9.3 H Absolute Lymphocytes (1.2 - 3.4 /CUMM) 0.7 L Absolute Monocytes (0.10 - 0.60 /CUMM) 0.8 H Absolute Eosinophils (0.0 - 0.7 /CUMM) 0 Absolute Basophils (0.0 - 0.2 /CUMM) 0 Platelet Estimate (ADEQUATE) ADEQUATE Polychromasia 1+ Toxicology Urine Opiates Screen (>2000 NG/ML) < 100 Methadone Screen (>300 NG/ML) < 40 Barbiturate Screen (>200 NG/ML) < 60 Ur Phencyclidine Scrn (>25 NG/ML) < 6.00 Amphetamines Screen (>1000 NG/ML) 182 U Benzodiazepines Scrn (>200 NG/ML) < 85 Urine Cocaine Screen (>300 NG/ML) < 50 Urine Cannabis Screen (>50 NG/ML) < 5.00 03/06 03/06 2250 2109 Chemistry Lactic Acid (0.7 - 2.1 mmol/L) 1.2 Urines Urine Color (YEL,AMB,STR) YEL Urine Clarity (CLEAR) CLEAR Urine pH (5.0 - 8.0) 6.5 Ur Specific [place]en (1.001 - 1.035) 1.020 Urine Protein (NEG,<30 MG/DL) NEG Urine Ketones (NEG) NEG Urine Nitrite (NEG) NEG Urine Bilirubin (NEG) NEG Urine Urobilinogen (0.1 - 1.0 EU/dl) 0.2 Ur Leukocyte Esterase (NEG) NEG Ur Microscopic EXAM NOT REQUIRED Urine Hemoglobin (NEG) NEG Urine Glucose (N MG/DL) >=1000 H 03/06 1920 Chemistry Sodium (137 - 145 mmol/L) 144 Potassium (3.5 - 5.1 mmol/L) 3.5 Chloride (98 - 107 mmol/L) 103 Carbon Dioxide (22 - 30 mmol/L) 29 Anion Gap (5 - 16) 12 BUN (9 - 20 mg/dL) 14 Creatinine (0.7 - 1.2 mg/dL) 1.0 Estimated GFR (>60 ml/min) > 60 BUN/Creatinine Ratio (7 - 25 %) 14.0 Glucose (65 - 99 mg/dL) 71 Hemoglobin A1c (4.2 - 5.8 %) 9.4 H Lactic Acid (0.7 - 2.1 mmol/L) 3.8 H Calcium (8.4 - 10.2 mg/dL) 9.5 Magnesium (1.6 - 2.3 mg/dL) 2.2 Total Bilirubin (0.2 - 1.3 mg/dL) 0.7 AST (17 - 59 U/L) 29 ALT (21 - 72 U/L) 44 Alkaline Phosphatase (< 127 U/L) 70 Creatine Kinase (55 - 170 U/L) 67 Troponin I (<0.11 ng/ml) < 0.01 Total Protein (6.3 - 8.2 g/dL) 7.8 Albumin (3.5 - 5.0 g/dL) 4.4 Globulin (1.9 - 4.2 gm/dL) 3.4 Albumin/Globulin Ratio (1.1 - 2.2 %) 1.3 Hematology CBC w Diff NO MAN DIFF REQ WBC (4.8 - 10.8 /CUMM) 14.4 H RBC (4.70 - 6.10 /CUMM) 4.60 L Hgb (14.0 - 18.0 G/DL) 14.8 Hct (42 - 52 %) 43.5 MCV (80.0 - 94.0 FL) 94.7 H MCH (27.0 - 31.0 PG) 32.1 H MCHC (33.0 - 37.0 G/DL) 33.9 RDW (11.5 - 14.5 %) 13.8 Plt Count (130 - 400 /CUMM) 254 MPV (7.4 - 10.4 FL) 9.4 Gran % (42.2 - 75.2 %) 87.4 H Lymphocytes % (20.5 - 51.1 %) 5.5 L Monocytes % (1.7 - 9.3 %) 6.6 Eosinophils % (0 - 5 %) 0.4 Basophils % (0.0 - 2.0 %) 0.1 Absolute Granulocytes (1.4 - 6.5 /CUMM) 12.6 H Absolute Lymphocytes (1.2 - 3.4 /CUMM) 0.8 L Absolute Monocytes (0.10 - 0.60 /CUMM) 1.0 H Absolute Eosinophils (0.0 - 0.7 /CUMM) 0.1 Absolute Basophils (0.0 - 0.2 /CUMM) 0 Imaging/Other Studies: NCHCT: FINDINGS: Of note, there is contrast remaining on this study from the previous CT of the abdomen and pelvis. There is no evidence of acute intracranial hemorrhage or territorial infarction. No abnormal mass effect or midline shift is seen. Contreras to white matter differentiation is well preserved. No extra-axial fluid collections are identified. No hydrocephalus. Proportional prominence of the ventricles and sulcal spaces is consistent with mild volume loss. Patchy periventricular and deep white matter hypoattenuation is consistent with mild small vessel ischemic changes. The osseous structures and soft tissues are normal. The mastoid air cells are well aerated. Moderate opacification of the right maxillary sinus with internal calcification, appearing chronic. Mild opacification of the left maxillary sinus. IMPRESSION: No acute intracranial pathology. Mild volume loss with small vessel ischemic change. Chronic right maxillary sinus opacification. Carotid Duplex: IMPRESSION: There is plaque present in the right internal carotid artery with normal velocities consistent with a minimal 0-49% stenosis. The left side is normal with no plaque seen. Assessment/Plan Assessment: 72 year old man with a very complex past medical history presents with LOC. Found to have a glucose of 20 by EMS. Most likely cause is therefore hypoglycemia. 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 Recommendations: 1. MRI brain without contrast. 2. MRI lumbar spine with contrast. 3. EEG 4. Monitor sugar levels and orthostatic BPs. 5. If orthostatic gap is big may add Midodrine. 6. Blood cultures. 7. Puree diet and meds crushed with apple sauce. YC Consult Acknowledgment - Thank you for your consult request.
[2018-03-07 16:00] VITALS: BP 134/82
--- NOTE | 2018-03-07 17:21 | Cons- Endocrinology ---
General Information and HPI Consulting Request Date of Consult: 03/07/18 Requested By: Primary team History of Present Illness: This is a 72 M presented with change in mental status and was found to have hypoglycemia. He went to take a shower at 9 AM, felt back pain and walk back to his room to lie down. His found him lying on the floor at 6 PM. He has been following [place] [facility], and over the past few visits, basal rate during the daytime has been tritrated up gradually due to hyperglycemia in the daytime. According to the patient, his glucose level in the day time were about 200. He does not count carb, only give 4 to 8 units of bolus depending on how much he eats, and bolus only constitute 15% of his total daily insulin dose, while basal insulin constitute 80% His current insulin pump (T slim pump) setting: Basal rate: 12AM 0.9 3AM 1.0 9AM 1.9 11AM 3.7 3PM 3.5 9PM 3.2 Sensitivity factor 1:35 Insulin duration: 5 hours Allergies/Medications Allergies: Coded Allergies: morphine (Mild, RASH, ITCHY 10/02/17) Home Med List: Albuterol Sulfate (Proair Hfa) 90 MCG HFA.AER.AD 2 PUF INH PRN DYSPNEA ( Reported) Amlodipine (Norvasc) 2.5 MG TABLET 1 TAB PO DAILY HEART/BP (Reported) Aspirin (Ecotrin*) 81 MG TABLET.DR 1 TAB PO DAILY HEART/BLOOD (Reported) Atorvastatin Calcium 80 MG TABLET 0.5 TAB PO 1700 CHOLESTEROL (Reported) Budesonide/Formoterol Fumarate (Symbicort 80-4.5 Mcg Inhaler) 80 MCG-4.5 MCG/ ACTUATION HFA.AER.AD 2 PUF INH PRN SOB (Reported) Bupropion HCl (Bupropion XL) 300 MG TAB.ER.24H 1 TAB PO QAM DEPRESSION ( Reported) Cyanocobalamin (Vitamin B-12) (Vitamin B12) (Unknown Strength) TABLET (Unknown Dose) PO DAILY SUPPLEMENT (Reported) Donepezil HCl (Aricept) 10 MG TABLET 1 TAB PO QAM MEMORY (Reported) Fludrocortisone Acetate 0.1 MG TABLET 0.5 TAB PO DAILY ORTHOSTATIC HYPOTENSION (Reported) Insulin Aspart (Novolog) (Unknown Strength) VIAL (Unknown Dose) DIABETES - PUMP (Reported) Latanoprost (Xalatan) 0.005 % DROPS 1 GTT OU QPM GLAUCOMA (Reported) Loratadine (Claritin) 10 MG TABLET 1 TAB PO DAILY ALLERGIES (Reported) Metoprolol Succ XL (Toprol XL) 25 MG TAB.ER.24H 0.5 TAB PO QAM BP (Reported) Rotigotine (Neupro) 1 MG/24 HOUR PATCH.TD24 1 PATCH TOP QAM PARKINSONS ( Reported) Tiotropium [place] (Spiriva) 18 MCG CAP.W.DEV 1 CAP INH QAM COPD (Reported) Tramadol HCl 50 MG TABLET 1 TAB PO AD PRN PAIN (Reported) Ubidecarenone (Co Q-10) (Unknown Strength) CAPSULE (Unknown Dose) PO DAILY SUPPLEMENT (Reported) Review of Systems Comments GENERAL/CONSTITUTIONAL: No fever, weakness. HEAD, EYES, EARS, NOSE AND THROAT: No loss of vision or loss of hearing CARDIOVASCULAR: No chest pain or shortness of breath RESPIRATORY: No cough or wheezing. GASTROINTESTINAL: No vomiting or abdominal pain. MUSCULOSKELETAL: No muscle weakness or tenderness. SKIN: No hives NEUROLOGIC: No fainting or loss of consciousness PSYCHIATRIC: Alert and oriented. ENDOCRINE: see HPI. 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 Surgical History Surgical History: CARDIAC CATH X 3 ([facility] MORE THAN 10 YEARS AGO) MULTIPLE SHOULDER, KNEE, WRIST, JAW, SINUS SURGERIES Psychosocial History Services at Home: None Smoking Status: Never Smoked ETOH Use: occasional use Illicit Drug Use: denies illicit drug use Exam & Diagnostic Data Last 24 Hrs of Vital Signs/I&O Vital Signs Date Time Temp Pulse Resp B/P B/P Pulse O2 O2 Flow FiO2 Mean Ox Delivery Rate 03/07 1600 97 Nasal 3.0L Cannula 03/07 1600 97.6 75 18 134/82 97 Nasal 3.0L Cannula 03/07 1252 95 Nasal 3.0L Cannula 03/07 1230 Nasal 3.0L Cannula 03/07 0821 90 142/80 03/07 0820 90 142/80 03/07 0800 96 Nasal 3.0L Cannula 03/07 0800 98.2 90 20 142/80 96 Nasal 3.0L Cannula 03/07 0550 83 99 03/07 0345 99 CPAP 3.0L 03/07 0330 81 99 03/07 0210 98.2 86 20 148/70 98 Nasal 3.0L Cannula 03/06 2345 98.5 72 20 142/78 97 Room Air 03/06 2148 98.1 74 15 157/74 97 Room Air 03/06 2003 97.6 77 16 133/70 94 Room Air 03/06 1914 95.1 86 18 204/90 99 Room Air Intake & Output 03/07 1600 03/07 0800 08 0000 Intake Total 971 604 7628 Output Total 925 1700 Balance -95 -1300 1480 Intake, IV 110 1480 Intake, Oral 720 400 Number 0 Bowel Movements Output, Urine 925 1700 Patient 230 lb 223 lb Weight Weight Bed scale Estimated Measurement Method GENERAL APPEARANCE: Well developed, in no acute distress. SKIN: no hives HEENT: conjunctivae were pink and moist. Extraocular movements were intact. External inspection of the ears and nose showed no masses. NECK: Supple and symmetric. CHEST: normal contour, normal breath effort. LUNGS: Auscultation of the lungs revealed normal breath sounds CARDIOVASCULAR: regular rate and rhythm. MUSCULOSKELETAL: Gait was not assessed NEUROLOGIC: Alert and oriented x 3. Assessment/Plan Assessment/Plan Hypoglycemia is probably due to very high basal rate during the daytime. Normally, basal insulin should constitute about 50% of total daily insulin. He needs to reduce basal rate in the daytime and increase bolus dose for meals. I have changed the pump settings to the followiing: Basal rate: 12AM 0.9 3AM 1.0 9AM 1.5 11AM 3.0 3PM 3.0 9PM 2.5 I asked him to add 2 additional units for every mealtime bolus. I started hypoglycemia alert on his pump, so he will hear an alert when glucose is less than 80 and 15 minutes thereafter. I asked him and his to update the pump immediately after discharge, in order to benefit from the new hypoglycemia suspension technology. Limit diet to carbohydrate level 1 Please start to give Levemir 35 units once daily from tomorrow morning Please change Novolog dose according to the recommendation below At the time of discharge: Please give patient our office number as he is interested in seeing us in the office in the future Please prescribe glucagon kit, and his knows how to use it. He should restart pump 20 hours after the last dose of Levemir. Will follow Inpatient Diabetes Orders Before Each Meal: Bolus Insulin: Novolog < 80 mg/dl: 0 80-100 mg/dl: 6 101-120 mg/dl: 6 121-150 mg/dl: 6 151-200 mg/dl: 8 201-250 mg/dl: 10 251-300 mg/dl: 12 301-350 mg/dl: 14 351-400 mg/dl: 16 > 400 mg/dl: 18 Bedtime: Bolus Insulin: Novolog < 80 mg/dl: 0 80-100 mg/dl: 0 101-120 mg/dl: 0 121-150 mg/dl: 0 151-200 mg/dl: 2 201-250 mg/dl: 4 251-300 mg/dl: 6 301-350 mg/dl: 8 351-400 mg/dl: 10 > 400 mg/dl: 12 Consult Acknowledgment - Thank you for your consult request.
--- NOTE | 2018-03-07 19:10 | MRI REPORT ---
EXAMINATION: MR BRAIN WITHOUT CONTRAST CLINICAL INFORMATION: Stroke. History of dementia and Parkinson's disease. History of orthostatic hypotension. Syncope episode. COMPARISON: Head CT 03/07/2018. TECHNIQUE: Multiplanar, multisequence imaging of the brain was performed without intravenous contrast. \H\ \N\FINDINGS: There is no acute infarction, mass, hemorrhage, or extra-axial collection. The ventricles, sulci, and basilar cisterns are normal in size and configuration. There are mild foci of T2 hyperintensity in the bilateral cerebral white matter, which are nonspecific but likely reflect underlying small vessel disease. There is mild age-related prominence of the ventricles and sulci. No regional or lobar pattern of atrophy is seen. The flow voids of the major intracranial arteries appear intact. There is scattered paranasal sinus mucosal thickening which is moderate in the right maxillary sinus where there is circumferential mucosal thickening and aerated secretions. Mild left mastoid mucosal thickening is also noted. IMPRESSION: - No acute infarct, mass lesion, intracranial hemorrhage, or evidence of hydrocephalus. - Scattered paranasal sinus mucosal thickening including in the right maxillary sinus where aerated secretions are noted.
--- NOTE | 2018-03-07 20:11 | MRI REPORT ---
EXAMINATION: MR LUMBAR SPINE WITHOUT AND WITH CONTRAST CLINICAL INFORMATION: Questionable epidural abscess on CT scan. Back pain and recent back surgery. COMPARISON: CT of the abdomen and pelvis 03/06/2018. TECHNIQUE: MRI of the lumbar spine was obtained using routine sequences without and with intravenous contrast. A total of 10 mL Gadavist was intravenously administered. FINDINGS: The lumbar vertebral bodies maintain normal heights and alignment. There is disc desiccation at L3-L4, L4-L5, and L5-S1. No endplate or bone marrow edema is seen. The distal spinal cord appears normal. The conus medullaris terminates normally at the upper L2 level. No abnormal enhancement is seen along the cauda equina nerve roots. Allowing for the postoperative findings (described below) the extraspinal soft tissues appear normal. SPINAL LEVELS: L1-L2: No posterior disc abnormality. Mild facet arthropathy. No spinal canal or neural foraminal stenosis. L2-L3: Mild disc bulging. Mild facet arthropathy. No spinal canal when neural foraminal stenosis. L3-L4: Disc bulging, ligamentum flavum infolding, and mild to moderate facet arthropathy. Bulging disc extends into the left neural foramen and abuts the exiting left L3 nerve root causing mild spinal canal stenosis. L4-L5: Postoperative findings related to posterior decompression with instrumentation at the L4-L5 spinous processes. There is disc bulging with central disc protrusion narrowing the right more than left subarticular zones and appearing to contact the descending L5 nerve roots. The ligamentum flavum has been stripped. Moderate bilateral facet arthropathy is seen. No significant spinal canal stenosis is seen. Bulging disc extends into the right more than left neural foramina resulting in mass effect on the right more than left L4 nerve roots. No epidural collection is seen at this level. L5-S1: Postoperative changes related to posterior decompression. Diffuse disc bulging. In the left subarticular zone is rim-enhancing soft tissue contiguous with the disc space which may reflect residual/recurrent disc herniation versus granulation tissue (series 6 image 28). As a result of this lesion there is effacement of the left subarticular zone with mass effect on the descending S1 nerve root. There is moderate spinal canal stenosis related to disc bulging and facet arthropathy resulting in mass effect on the descending right S1 nerve root. There is severe left and mild right neural foraminal stenosis with mass effect on the exiting left L5 nerve root. IMPRESSION: - No findings identified specific for epidural abscess. - Postoperative changes at L4-L5 with underlying spondylotic changes resulting in mass effect on the right more than left L4 nerve roots. - Postoperative changes at L5-S1. There is residual/recurrent disc herniation versus granulation tissue causing effacement of the left subarticular zone with mass effect on the descending left S1 nerve root. Additional multifactorial degenerative changes results in mass effect on the right S1 nerve root as well as mass effect on the exiting left L5 nerve root.
--- NOTE | 2018-03-07 21:09 | ELECTROENCEPHALOGRAM REPORT ---
Electroencephalogram Report Electroencephalogram Results Date of service: 03/07/18 Attending MD: Neetu Weems MD Customs Examiner: Howard EEG Number: [id number] Test Utilizes: 10-20 system, 21 lead 18 channel digital recording Pertinent Hx/Physical/Neuro Findings/Clin Diagnosis: 72 year old man with syncope and hypoglycemia. Inpatient Medications: Current Medications Sig/Luiza Start time Last Medication Dose Route Stop Time Status Admin Acetaminophen 650 MG Q8P PRN 03/07 0130 AC PO Albuterol Sulfate 3 ML TID 03/07 1400 AC 03/07 INH 2035 Albuterol Sulfate 2 PUF 4 TIMES/DAY PRN 03/07 1257 AC INH Albuterol Sulfate 2 PUF 4 TIMES/DAY 03/07 0105 DC 03/07 INH 0818 Alprazolam 0 .STK-MED ONE 03/07 1034 DC PO Alprazolam 0.5 MG ONCE ONE 03/07 1030 DC 03/07 PO 03/07 1031 1036 Amlodipine Besylate 2.5 MG DAILY 03/07 0900 AC 03/07 PO 0820 Aspirin Buffered 81 MG DAILY 03/07 0900 AC 03/07 PO 0818 Atorvastatin Calcium 40 MG 1700 03/07 1700 AC 03/07 PO 1636 Benzocaine/Menthol 1 LORNE Q2P PRN 03/07 1030 AC 03/07 PO 1507 Budesonide/ 2 PUF BID 03/07 0900 AC 03/07 Formoterol Fumarate INH 2021 Bupropion HCl 300 MG QAM 03/07 0900 AC 03/07 PO 0819 Calcium Gluconate 1 GM ONCE ONE 03/07 0715 DC 03/07 Sodium Chloride 100 ML IV 03/07 0814 0816 Ceftriaxone Sodium 1,000 MG DAILY 03/06 205 DC 03/06 IV 2100 Diphenhydramine HCl 0 .STK-MED ONE 03/07 0347 DC PO Diphenhydramine HCl 25 MG ONCE ONE 03/07 0345 DC 03/07 PO 03/07 0346 0353 Donepezil HCl 10 MG QAM 03/07 0900 AC 03/07 PO 0818 Fludrocortisone 50 MCG DAILY 03/07 0900 AC 03/07 Acetate PO 0821 Heparin Sodium 5,000 UNIT Q8 03/07 0600 AC 03/07 (Porcine) SC 202 Insulin Aspart 0 AT BEDTIME 03/07 2100 AC SC Insulin Aspart 6 UNITS TIDAC 03/07 0845 AC 03/07 SC 1636 Insulin Aspart 0 TIDAC 03/07 0800 DC SC Insulin Aspart 5 UNITS ONCE ONE 03/07 0600 DC 03/07 SC 03/07 0601 0630 Insulin Aspart 0 .STK-MED ONE 03/07 0352 DC SC Insulin Aspart 0 .STK-MED ONE 03/07 0350 DC SC Insulin Aspart 0 TIDAC 03/07 0345 AC 03/07 SC 1637 Insulin Detemir 35 UNITS DAILY 03/08 0900 AC SC Insulin Detemir 10 UNITS AT BEDTIME 03/07 2100 CAN SC Insulin Detemir 0 .STK-MED ONE 03/07 0849 DC SC Insulin Detemir 30 UNITS 8AM 03/07 0845 AC 03/07 SC 0852 Latanoprost 1 GTT QPM 03/07 2100 AC 03/07 OPH 2024 Loratadine 10 MG DAILY 03/07 1353 AC 03/07 PO 1636 Metoprolol Succinate 12.5 MG QAM 03/07 0900 AC 03/07 PO 0821 Naphazoline HCl/ 1 GTT TID 03/07 1409 AC Pheniramine Maleate OPH Phenol 2 SPRAY Q2P PRN 03/07 1415 AC EXT Polyethylene Glycol 17 GM DAILY 03/07 0145 AC PO Potassium Chloride 0 .STK-MED ONE 03/07 0146 DC PO Potassium Chloride 40 MEQ ONCE ONE 03/06 2345 DC 03/07 PO 03/06 2346 0157 Senna 187 MG AT BEDTIME 03/07 0145 AC 03/07 PO 2024 Sodium Chloride 3,034.53 ML ONCE 03/06 2045 DC 03/06 IV 2113 Sodium Polystyrene 60 ML ONCE ONE 03/07 0600 DC 03/07 Sulfonate PO 03/07 0601 0629 Tiotropium [place] 1 PUF DAILY 03/07 1257 AC 03/07 INH 1507 Interpretation: The recording demonstrates a distruption of the normal frequency gradient. The background is composed of very low amplitude 5-15 microvolt very fast beta rhythms. Occasional bifrontal short lived delta rhythms are noted that last between 1-3 seconds. Otherwise there are no paroxysmal sharps or spikes. The posterior dominant rhythm is not evident. Impression: Mildly abnormal recording due to low amplitude and occasional brief frontal slowing suggestive of mild cerebral dysfunction. No suggestive epileptogenic activity.
[2018-03-08] VITALS: BP 142/60
[2018-03-08 06:29] LABS: ABSOLUTE BASOPHIL COUNT 0 /CUMM (0.0-0.2); ABSOLUTE EOSINOPHIL COUNT 0.1 /CUMM (0.0-0.7); ABSOLUTE GRANULOCYTE CT 4.1 /CUMM (1.4-6.5); ABSOLUTE LYMPH COUNT 0.7 /CUMM (1.2-3.4); ABSOLUTE MONOCYTE COUNT 0.6 /CUMM (0.10-0.60); BASOPHIL % 0.3 % (0.0-2.0); EOSINOPHIL % 1.9 % (0-5); GRANULOCYTE % 75.5 % (42.2-75.2); HEMATOCRIT 34.8 % (42-52); MEAN CORPUSCULAR HGB 32.1 PG (27.0-31.0); MEAN CORPUSCULAR HGB CONC 34.2 G/DL (33.0-37.0); MEAN CORPUSCULAR VOLUME 94.1 FL (80.0-94.0); MEAN PLATELET VOLUME 8.8 FL (7.4-10.4); PLATELET COUNT 181 /CUMM (130-400); RBC DISTRIBUTION WIDTH 14.1 % (11.5-14.5); WHITE BLOOD CELL COUNT 5.5 /CUMM (4.8-10.8)
--- NOTE | 2018-03-08 07:20 | PN- Resident CRCU ---
RobertoValadez 03/08/18 0720: Subjective HPI/CRCU Issues: Mild hypothermia (Resolved) Syncope due to hypoglycemia.(Resolved) Reactive leukocytosis.(Resolved) History of COPD on 3 L of home oxygen. History of obstructive sleep apnea on CPAP at nighttime History of hypertension and hyperlipidemia History of diabetes on insulin pump History of orthostatic hypotension on fludrocortisone. History of CAD status post cardiac catheterization (no stent placement) x 3 History of Parkinson disease History of anxiety and depression History of back pain status post recent surgery. 24 Hour Events: Patient remained afebrile overnight his max temperature was 102.3. Patient received IV Tylenol. Seen and examined this morning. He was lying in bed comfortably and using 4 L of oxygen and maintaining saturation 95%. Patient is still feeling weak and complaining of sore throat but overall he is feeling better. His oral redness has been improved. Complaining of dizziness probably that's his baseline considering his orthostatic hypotension. And complaining of intermittent cough. Objective Vital Signs & I&O Last 8 Hrs of Vitals and I&O: Intake & Output 03/08 1600 03/08 0800 03/08 0000 Intake Total 960 200 120 Output Total [phone] Balance 210 -700 -1000 Intake, IV 0 Intake, Oral 960 200 120 Number 1 Bowel Movements Output, Urine [phone] Patient 215 lb Weight Laboratory Tests 03/08 0600 Chemistry Sodium (137 - 145 mmol/L) 133 L Potassium (3.5 - 5.1 mmol/L) 4.4 Chloride (98 - 107 mmol/L) 100 Carbon Dioxide (22 - 30 mmol/L) 29 Anion Gap (5 - 16) 5 BUN (9 - 20 mg/dL) 11 Creatinine (0.7 - 1.2 mg/dL) 0.9 Estimated GFR (>60 ml/min) > 60 Glucose (65 - 99 mg/dL) 247 H Calcium (8.4 - 10.2 mg/dL) 8.7 Phosphorus (2.5 - 4.5 mg/dL) 3.6 Magnesium (1.6 - 2.3 mg/dL) 1.8 Total Bilirubin (0.2 - 1.3 mg/dL) 0.9 AST (17 - 59 U/L) 25 ALT (21 - 72 U/L) 38 Albumin (3.5 - 5.0 g/dL) 3.2 L Hematology CBC w Diff NO MAN DIFF REQ WBC (4.8 - 10.8 /CUMM) 5.5 RBC (4.70 - 6.10 /CUMM) 3.70 L Hgb (14.0 - 18.0 G/DL) 11.9 L Hct (42 - 52 %) 34.8 L MCV (80.0 - 94.0 FL) 94.1 H MCH (27.0 - 31.0 PG) 32.1 H MCHC (33.0 - 37.0 G/DL) 34.2 RDW (11.5 - 14.5 %) 14.1 Plt Count (130 - 400 /CUMM) 181 MPV (7.4 - 10.4 FL) 8.8 Gran % (42.2 - 75.2 %) 75.5 H Lymphocytes % (20.5 - 51.1 %) 12.2 L Monocytes % (1.7 - 9.3 %) 10.1 H Eosinophils % (0 - 5 %) 1.9 Basophils % (0.0 - 2.0 %) 0.3 Absolute Granulocytes (1.4 - 6.5 /CUMM) 4.1 Absolute Lymphocytes (1.2 - 3.4 /CUMM) 0.7 L Absolute Monocytes (0.10 - 0.60 /CUMM) 0.6 Absolute Eosinophils (0.0 - 0.7 /CUMM) 0.1 Absolute Basophils (0.0 - 0.2 /CUMM) 0 Intake & Output 03/08 1600 Intake Total 960 Output Total 750 Balance 210 Intake, IV 0 Intake, Oral 960 Number 1 Bowel Movements Output, Urine 750 Exam General Appearance: well developed/nourished, no apparent distress, alert, awake Head: atraumatic, normal appearance Neck: normal inspection, supple Respiratory: dECREASED BREATH SOUNDS B/L Cardiovascular: regular rate/rhythm Gastrointestinal: normal bowel sounds, soft, non-tender Extremities: no edema Skin Temp/Moisture Exam: Warm/Dry Sepsis Skin Exam (color): Normal for Ethnicity Current Medications: Current Medications Sig/Luiza Start time Last Medication Dose Route Stop Time Status Admin Acetaminophen 1,000 MG ONCE ONE 03/07 2245 DC 03/07 N/A 1 UNIT IV 03/07 Acetaminophen 0 .STK-MED ONE 03/07 2244 DC IV Acetaminophen 650 MG Q8P PRN 03/07 0130 AC PO Albuterol Sulfate 3 ML TID 03/07 1400 AC 03/08 INH 1346 Albuterol Sulfate 2 PUF 4 TIMES/DAY PRN 03/07 1257 AC INH Amlodipine Besylate 2.5 MG DAILY 03/07 0900 AC 03/08 PO 0846 Aspirin Buffered 81 MG DAILY 03/07 0900 AC 03/08 PO 0844 Atorvastatin Calcium 40 MG 1700 03/07 1700 AC 03/07 PO 1636 Benzocaine/Menthol 1 LORNE Q2P PRN 03/07 1030 AC 03/08 PO 1406 Budesonide/ 2 PUF BID 03/07 0900 AC 03/08 Formoterol Fumarate INH 0844 Bupropion HCl 300 MG QAM 03/07 0900 AC 03/08 PO 0844 Donepezil HCl 10 MG QAM 03/07 0900 AC 03/08 PO 0844 Fludrocortisone 50 MCG DAILY 03/07 0900 AC 03/08 Acetate PO 0844 Guaifenesin 600 MG Q12 03/08 0957 AC 03/08 PO 1215 Heparin Sodium 5,000 UNIT Q8 03/07 0600 AC 03/08 (Porcine) SC 1403 Insulin Aspart 0 TIDAC/HS 03/08 0800 AC 03/08 SC 1214 Insulin Aspart 0 AT BEDTIME 03/07 2100 DC OR Insulin Aspart 6 UNITS TIDAC 03/07 0845 DC 03/07 SC 1636 Insulin Aspart 0 TIDAC 03/07 0345 DC 03/07 SC 1637 Insulin Detemir 35 UNITS DAILY 03/08 0900 AC 03/08 SC 0834 Insulin Detemir 10 UNITS AT BEDTIME 03/07 2100 CAN SC Insulin Detemir 30 UNITS 8AM 03/07 0845 DC 03/07 SC 0852 Latanoprost 1 GTT QPM 03/07 2100 AC 03/07 OPH 2024 Loratadine 10 MG DAILY 03/07 1353 AC 03/08 PO 0844 Magnesium Oxide 400 MG 0730 03/08 0730 DC 03/08 PO 03/08 0731 0844 Metoprolol Succinate 12.5 MG QAM 03/07 0900 AC 03/08 PO 0847 Naphazoline HCl/ 1 GTT TID 03/07 1409 AC 03/08 Pheniramine Maleate OPH 1403 Phenol 2 SPRAY Q2P PRN 08/13 1415 AC EXT Polyethylene Glycol 17 GM DAILY 03/07 0145 AC PO Senna 187 MG AT BEDTIME 03/07 0145 AC 03/07 PO 2023 Tiotropium [place] 1 PUF DAILY 03/07 1257 AC 03/08 INH 0844 Tramadol HCl 0 .STK-MED ONE 03/08 0048 DC PO Tramadol HCl 50 MG ONCE PRN 03/08 0045 AC 03/08 PO 0047 Impression/Plan Impression/Problem List Impression: 72 YO white M with a significant PMH of Parkinson's disease, 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 Patient is tele hold in icu. We are seeing the patient on ICU floor for following problems. Syncopal episode: -Due to hypoglycemia. Hypoglycemia was probably due to very high basal rate during the daytime. Patient had blood sugar level 20 as found by EMS at home. Patient had sweating and dizziness. Could be due to orthosatatic hypotension as he is alrady on fludrocortisone. -Considering patient's significant history of cardiac problem patient will be monitored on tele monitor for any blocks or arrhythmias that caused his syncopal episode. -His trops and EKGs remain negative for any ischemic cardiac injury. -His blood sugar level this morning was 247. -On carotid Doppler patient had right sided plaque in ICA with normal velocity consistent with munimal 0-49% stenosis and left side is normal. -Follow up echocardiogram results. -His MRI head negative for any acute infarct and his EEG is abnormal due to low amplitude due to mild cerebral dysfunction but overall didn't show any seizure activity. -Patient is a benign-appearing stable and no changes on quality assurance monitor body we will transfer him to general med. Hypothermia:(Resolved) -Patient had mild hypothermia with temperature 95.1 -Patient was admitted in ICU for bear hugers although his hypothermia had already been resolved. -This morning his temperature was 100.4 Hyperkalemia:(Resolved) -Patient patient'S potassium level was 3.5 that was repleted and later on his potassium level came back 6.0 -Patient was given 1 Kayexalate and his EKG was showing hyperacute T waves that' s why he was given 1 dose of calcium gluconate. -His k today is 4.4 Abnormal imaging study: -On CT scan abdomen and pelvis with IV contrast, there is questionable subdural abscess although patient is afebrile and`his leukocytosis has been resolved. -Patient had lactic acidosis on admission 3.8 that was resolved later 1.2 -He received one dose of ceftriaxone in ED -His MRI lumbar spine remained negative for any epidural abscess. Fever: -Patient had fever 102.3 last night and he was given iv tylenol. Later on he had temp 100.4 -His MRI is negative for eoidural abscess. We will check chest x-ray for aspiration pneumonia. -Patient didn't has sinus tenderness. -ID recommended to watch him off antibiotics for now and get the chest x-ray. -Follow-up blood cultures Throat pain: -Patient reported throat pain after potassium pill. Patient has erythematous throat. -His strep throat swab is pending. -Chloraseptic lozanges and spray as needed. -His strep urine antigen is negative. History of diabetes: -Type 1 diabetes diagnosed in 20s according to patient. -Patient was on insulin pump for his baseline requirements. -Patient's insulin pump has been removed by his . -Endocrinology recommended Levemir 35 units subcutaneous daily. -Sided NovoLog according to sliding scale -Accu-Cheks History of hypertension and hyperlipidemia: -Continue metoprolol and Lipitor -Continue amlodipine History of COPD/KASSY: -Continue supplemental oxygen. He is on 4 L and maintaining saturation 95%. We will try to wean off to his home oxygen that's 3 L. -Continue TRC nebulization as needed -Continue CPAP at nighttime -Continue Symbicort inhaler and Ventolin. History of CAD status post cardiac catheterization: -Continue aspirin History of dementia: -Continue donepezil History of orthostatic hypotension: -Possibly due to adrenal insufficiency. -Continue fludrocortisone 50 g daily. -Follow-up orthostatic vitals patient may need another medication for his orthostatic hypotension like medodrine. History of Parkinson disease: -Continue neupro patch 1mg/24hrs History of anxiety and depression; -Continue bupropion History of back pain: -Status post recent back surgery. Follow-up pain pathway for pain management. -Continue tramadol 50 mg once by mouth when necessary. DVT prophylaxis; Mechanical and subcutaneous heparin CODE STATUS: Full code Problem List: 1. Hypothermia 2. Hyperkalemia 3. Hypoglycemia due to insulin Pain Ratin Pain Location: none Pain Plan: pain pathway Tomorrow's Labs & Rationales: cbc/icu bundle Plan DVT/Prophylaxis: mechanical, pharmacological Neetu Weems MD 03/08/18 1034: Attending MD Review Statement Attending Sign Off Attending Cosign Statement: I have: examined this patient, reviewed aval EMR data, personally reviewd images, discussd w/resident/PA/STUFFING MACHINE OPERATOR, discussed mgmt plan w/dee, discussed mgmt plan w/pt, agreed w/resident/PA/STUFFING MACHINE OPERATOR, amended to note. Other Findings: Patient seen and examined, he states that he is not feeling well. Is complaining of pain everywhere in his body. Patient did complain of cough but it was mostly dry. Patient had a fever spike of 102 last night. His urine is negative. So far no obvious source of infection has been identified. MRI of the brain and MRI of the lumbar spine is also negative for any evidence of infection. Vital Signs Date Time Temp Pulse Resp B/P B/P Pulse O2 O2 Flow FiO2 Mean Ox Delivery Rate 03/08 0847 98 180/78 03/08 0846 98 180/78 03/08 0821 97 Nasal 4.0L Cannula 03/08 0800 96 Nasal 3.0L Cannula 03/08 0800 99.2 92 20 180/78 96 Nasal 3.0L Cannula 03/08 0000 Nasal 3.0L Cannula 03/08 0000 100.4 92 20 142/60 Nasal 3.0L Cannula 03/07 2245 102.3 03/07 2100 86 95 03/07 2037 95 Nasal 3.0L Cannula 03/07 1600 97 Nasal 3.0L Cannula 03/07 1600 97.6 75 18 134/82 97 Nasal 3.0L Cannula 03/07 1252 95 Nasal 3.0L Cannula 03/07 1230 Nasal 3.0L Cannula on exam: aox3, nad. cv; s1,s2, rrr resp: + crackles at right base. abd; soft, nt, bs+ ext; no edema Laboratory Tests 03/08 03/07 03/07 0600 1220 1200 Chemistry Sodium (137 - 145 mmol/L) 133 L 135 L Cancelled Potassium (3.5 - 5.1 mmol/L) 4.4 4.2 Cancelled Chloride (98 - 107 mmol/L) 100 102 Cancelled Carbon Dioxide (22 - 30 mmol/L) 29 27 Cancelled Anion Gap (5 - 16) 5 6 Cancelled BUN (9 - 20 mg/dL) 11 16 Cancelled Creatinine (0.7 - 1.2 mg/dL) 0.9 0.9 Cancelled Estimated GFR (>60 ml/min) > 60 > 60 BUN/Creatinine Ratio (7 - 25 %) 17.8 Cancelled Glucose (65 - 99 mg/dL) 247 H Calcium (8.4 - 10.2 mg/dL) 8.7 Phosphorus (2.5 - 4.5 mg/dL) 3.6 Magnesium (1.6 - 2.3 mg/dL) 1.8 Total Bilirubin (0.2 - 1.3 mg/dL) 0.9 AST (17 - 59 U/L) 25 ALT (21 - 72 U/L) 38 Albumin (3.5 - 5.0 g/dL) 3.2 L Hematology CBC w Diff NO MAN DIFF REQ WBC (4.8 - 10.8 /CUMM) 5.5 RBC (4.70 - 6.10 /CUMM) 3.70 L Hgb (14.0 - 18.0 G/DL) 11.9 L Hct (42 - 52 %) 34.8 L MCV (80.0 - 94.0 FL) 94.1 H MCH (27.0 - 31.0 PG) 32.1 H MCHC (33.0 - 37.0 G/DL) 34.2 RDW (11.5 - 14.5 %) 14.1 Plt Count (130 - 400 /CUMM) 181 MPV (7.4 - 10.4 FL) 8.8 Gran % (42.2 - 75.2 %) 75.5 H Lymphocytes % (20.5 - 51.1 %) 12.2 L Monocytes % (1.7 - 9.3 %) 10.1 H Eosinophils % (0 - 5 %) 1.9 Basophils % (0.0 - 2.0 %) 0.3 Absolute Granulocytes (1.4 - 6.5 /CUMM) 4.1 Absolute Lymphocytes (1.2 - 3.4 /CUMM) 0.7 L Absolute Monocytes (0.10 - 0.60 /CUMM) 0.6 Absolute Eosinophils (0.0 - 0.7 /CUMM) 0.1 Absolute Basophils (0.0 - 0.2 /CUMM) 0 A/P: 72 y/o M with pmh sig for insulin pump dependent diabetes mellitus, recent back surgery X 2 (Jul/September 2017) at [place], parkinsons disease, multiple TIAs, hypertension, AL with no stent, COPD on 3L and CPAP at night, cardiac cath X3, anxiety and depresion admitted with syncope, hypoglycemia, leukocytosis, high lactate levels. Patient is followed by endocrinology and his insulin is adjusted. No further episodes of hypoglycemia. Patient was hyperglycemic though. Patient spiked a fever last night. So far all of her cultures remained negative. No obvious source of infection. Lactate normalized. Please consult infectious disease. Brain MRI was negative for any acute finding. MRI of the brain showed some mucosal spinal thickening but patient is nontender on examination. His sore throat is also better. His leukocytosis has improved. Lumbar spine MRI did not show any evidence of epidural abscess but it did show postoperative changes and severe canal stenosis with some mass-effect on L5-S1. Please call patient's original spine surgeon and discuss the findings with them. If those are not new findings and outpatient follow-up is recommended and patient will follow up with them as an outpatient otherwise if they recommend inpatient evaluation then will have to call spine surgery consult. Please try to taper oxygen to his baseline. Please resume antiparkinson's medications. DVT prophylaxis: Heparin subcu.
[2018-03-08 08:00] VITALS: BP 180/78
--- NOTE | 2018-03-08 09:18 | PN- Diabetes ---
Assessment/Plan Diabetes Assessment: This is a 72 Y M presented with hypoglycemia and change in mental status. Hypoglycemia is probably due to very high basal rate during the daytime. His BG has been around 200 over the past 24 hours. Plan: Please continue the current insulin regimen. Check BG ACHS Continue low carb diet. Subjective Subjective: BG has been about 200 in the past 24 hours. Patient received 30 units of Levemir yesterday AM, will receive 35 units today. Objective Last 24 Hrs of Vital Signs/I&O Vital Signs Date Time Temp Pulse Resp B/P B/P Pulse O2 O2 Flow FiO2 Mean Ox Delivery Rate 03/08 0847 98 180/78 03/08 0846 98 180/78 03/08 0821 97 Nasal 4.0L Cannula 03/08 08 96 Nasal 3.0L Cannula 03/08 08 99.2 92 20 180/78 96 Nasal 3.0L Cannula 03/08 0000 Nasal 3.0L Cannula 03/08 0000 100.4 92 20 142/60 Nasal 3.0L Cannula 03/07 2245 102.3 03/07 2100 86 95 03/07 2037 95 Nasal 3.0L Cannula 03/07 1600 97 Nasal 3.0L Cannula 03/07 1600 97.6 75 18 134/82 97 Nasal 3.0L Cannula 03/07 1252 95 Nasal 3.0L Cannula 03/07 1230 Nasal 3.0L Cannula Intake & Output 03/08 1600 03/08 0800 03/08 0000 Intake Total 200 120 Output Total 900 1120 Balance -700 -1000 Intake, Oral 200 120 Output, Urine 900 1120 Patient 215 lb Weight
--- NOTE | 2018-03-08 11:18 | Transfer of Care Summary ---
Hospital Course Course Hospital Course: 72 YO white M with a significant PMH of Parkinson's disease, Stroke > 10 years ago with residual right sided weakness, hypertension, hyperlipidemia, [place] status post cardiac cath 10 years ago, anxiety, diabetes on insulin pump at home, came in with a chief complaint of passing out earlier today. Initially patient was admitted to ICU with a concern of mild hypothermia that resolved while patient was still in ED. Later on patient remained in ICU as telemetry hold. In ED patient received one dose of ceftriaxone considering his leukocytosis. Syncopal episode: His syncopal episode was possibly due to hypoglycemia secondary to very high basal rate during the daytime. Patient had blood sugar level 20 as found by EMS at home. Patient had sweating and dizziness. Could be due to orthosatatic hypotension as he is alrady on fludrocortisone. Considering patient's significant cardiac history and multiple cardiac catheterization without stent placement he was placed on phototypesetting equipment monitor to rule out any blocks or arrhythmias. There were no arrhythmias noted. His troponin and EKG remained negative. His EEG remained negative for any seizure-like activity. His carotid Doppler studies remained negative for any significant stenosis. His MRI brain remained negative for any stroke. Hypothermia:(Resolved) Patient had mild hypothermia with temperature 95.1. Later on his temperature came back to normal. Hyperkalemia:(Resolved) Patient patient's potassium level was 3.5 that was repleted and later on his potassium level came back 6.0. Patient was given 1 Kayexalate and his EKG was showing hyperacute T waves that's why he was given 1 dose of calcium gluconate. His k today is 4.4 Abnormal imaging study: On CT scan abdomen and pelvis with IV contrast, there is questionable subdural abscess although patient is afebrile and`his leukocytosis has been resolved. Patient had lactic acidosis on admission 3.8 that was resolved later 1.2. He received one dose of ceftriaxone in ED. His MRI lumbar spine remained negative for any epidural abscess. His MRI is showing some effacement or masslike effect , may be granulation tissue on L5-S1. We are trying to contact his orthopedic surgeon who did the surgery, Dr. Codey Alcazar if he wants to follow the patient as outpatient or if he wants us to evaluate the patient while he is inpatient. I called on his cell #([phone]) as he is away from office till March 14 and left a voice mail for call back to discuss about the patient. Fever of unknown origin and sore throat: Patient was complaining of sore throat after the potassium pills. He had redness of his throat yesterday that was resolved today. Patient is taking Chloraseptic lozenges and spray. His urine strep antigen remained negative. His strep throats swab is still pending. Patient is being monitored off antibiotics. He spiked a fever last night max 102.3 and then 100.4. We will follow blood cultures. ID consult was placed for fever of unknown origin and Dr. Adame recommended to follow him off antibiotics. Chest x-ray is normal and didn't show any infiltration. Possibly URI from viral infection and sinusitis (chronic right maxillary sinus opacification on CT scan head). Continue watching off antibiotics and started him on flonase, saline nasal spray with humidified oxygen. If he spikes fever again then we will consider to cover him with antibiotics. History of diabetes: Type 1 diabetes diagnosed in 20s according to patient. Patient was on insulin pump for his basal requirements. Endocrinology recommended patient Levemir 35 units subcutaneous daily and NovoLog according to sliding scale. History of orthostatic hypotension: Not sure if it's due to autonomic dysfunction or adrenal insufficiency. Continuing fludrocortisone 50 g daily. Follow-up orthostatic vitals patient may need another medication for his orthostatic hypotension like medodrine. History of hypertension and hyperlipidemia: Continue metoprolol, Lipitor and amlodipine History of COPD/KASSY: Patient is on 4 L of oxygen but his baseline home oxygen requirement is 3 L. We will maintain off him to his baseline, oxygen. Patient is getting TRC nebulization as needed and nighttime CPAP as needed. We are continuing his Symbicort, Ventolin and Spiriva. History of CAD status post cardiac catheterization: Continue aspirin History of dementia: Continue donepezil History of Parkinson disease: Continue neupro patch 1mg/24hrs History of anxiety and depression: Continue bupropion History of back pain: Status post recent back surgery. Follow-up pain pathway for pain management. Continue tramadol 50 mg once by mouth when necessary. DVT prophylaxis: Mechanical and subcutaneous heparin CODE STATUS: Full code Assessment/Plan: Syncopal episode: -Due to hypoglycemia. Hypoglycemia was probably due to very high basal rate during the daytime. Patient had blood sugar level 20 as found by EMS at home. Patient had sweating and dizziness. Could be due to orthosatatic hypotension as he is alrady on fludrocortisone. -His trops and EKGs remain negative for any ischemic cardiac injury. -His blood sugar level this morning was 100. -On carotid Doppler patient had right sided plaque in ICA with normal velocity consistent with munimal 0-49% stenosis and left side is normal. -His MRI head negative for any acute infarct and his EEG is abnormal due to low amplitude due to mild cerebral dysfunction but overall didn't show any seizure activity. -Echo showed EF 55-60% Hypothermia:(Resolved) -Patient had mild hypothermia with temperature 95.1 -Patient was admitted in ICU for bear hugers although his hypothermia had already been resolved. -This morning his temperature was 98.8 Hyperkalemia:(Resolved) -Patient patient's potassium level was 3.5 that was repleted and later on his potassium level came back 6.0 -Patient was given 1 Kayexalate and his EKG was showing hyperacute T waves that' s why he was given 1 dose of calcium gluconate. -His k today is 3.8 and was repleted. Abnormal imaging study: -On CT scan abdomen and pelvis with IV contrast, there is questionable subdural abscess although patient is afebrile and`his leukocytosis has been resolved. -Patient had lactic acidosis resolved. -He received one dose of ceftriaxone in ED -His MRI lumbar spine remained negative for any epidural abscess. -Spoke to his orthopedic surgeon who did the surgery and he mentioned that she will take care of the patient as outpatient in one week as there was concern of masslike affect on MRI in lumbar region. Fever: -Patient remained afibrile over night. He spiked fever once possibly due to viral URI. -His chest x-ray is negative for aspiration. -Patient didn't has sinus tenderness but c/o sinus pain this morning. Possibly patient has sinus infection. -Flonase and saline spray for sinus pain. Humidified oxygen. -ID recommended to watch him off antibiotics for now. -Follow-up blood cultures Throat pain: -Patient reported throat pain after potassium pill. Patient was advised to stay upright for sometime after potassium pill. -His strep throat swab is pending. -Chloraseptic lozanges and spray as needed. -His strep urine antigen is negative. History of diabetes: -Type 1 diabetes diagnosed in 20s according to patient. -Patient was on insulin pump for his baseline requirements. -Patient's insulin pump has been removed by his . -Endocrinology recommended Levemir 35 units subcutaneous daily. -Novolog according to new sliding scale recommended by endo. -Accu-Cheks -Continue same regimen as his blood sugar level is under control. History of hypertension and hyperlipidemia: -Continue metoprolol and Lipitor -Continue amlodipine History of COPD/KASSY: -Continue supplemental O2 3L -Continue TRC nebulization as needed -Continue CPAP at nighttime -Continue Symbicort inhaler and Ventolin. History of CAD status post cardiac catheterization: -Continue aspirin History of dementia: -Continue donepezil History of orthostatic hypotension: -Possibly due to adrenal insufficiency. -Continue fludrocortisone 50 g daily. -Follow-up orthostatic vitals patient may need another medication for his orthostatic hypotension like medodrine. History of Parkinson disease: -Continue neupro patch 1mg/24hrs History of anxiety and depression; -Continue bupropion History of back pain: -Status post recent back surgery. Follow-up pain pathway for pain management. -Continue tramadol 50 mg once by mouth when necessary. DVT prophylaxis; Mechanical and subcutaneous heparin CODE STATUS: Full code
[2018-03-08] MEDS ORDERED: PHENASEPTIC177 ML EXT (12:16)
--- NOTE | 2018-03-08 12:36 | ECHOCARDIOGRAM REPORT ---
REYNALDO LORA Age: 72 : 1945 Gender: M Exam Date: 03/07/2018 19:31 Exam Location: [facility] Ht (in): 74 Wt (lb): 230 BSA: 2.35 BP: 142 / 80 Ordering Physician: Rory Mejia MD Referring Physician: Riki Stroud MD Technologist: Niesha Beckwith RENY Room Number: 111 Indications: Presyncope/Syncope Rhythm: Sinus Technical Quality: Poor, Technically difficult study FINDINGS Left Ventricle Normal size left ventricle. No obvious regional wall motion abnormalities. Normal left ventricular ejection fraction estimated at 55-60%. Right Ventricle Right ventricle not well visualized, grossly normal. Right Atrium Right atrium not well visualized, grossly normal. Left Atrium Normal left atrial size. Mitral Valve Mitral valve thickened. Aortic Valve Trileaflet aortic valve. Diffuse thickening (sclerosis) of the aortic valve cusps without reduced excursion. No aortic stenosis. No aortic regurgitation. Tricuspid Valve Tricuspid valve not well visualized, grossly normal. Pulmonic Valve Pulmonic valve not well visualized, grossly normal. Pericardium Small pericardial effusion. Great Vessels Aortic root and proximal ascending aorta not well visualized, grossly normal. CONCLUSIONS 1. This was a technically difficult and limited examination due to the patient's body habitus. 2. Minimal aortic sclerosis is present 3. Mitral leaflet thickening is present with no evidence of valvular prolapse. 4. A very small pericardial effusion is present which is hemodynamically insignificant. 5. The left ventricular chamber size and systolic function appear normal. 6. The right heart structures were not optimally assessed. The RV systolic pressure could not be assessed on this examination. Riki Stroud M.D. (Electronically Signed) Final Date: 08 March 2018 12:32 MEASUREMENTS (Male / Female) Normal Values 2D ECHO LV Diastolic Diameter PLAX 4.4 cm 4.2 - 5.9 / 3.9 - 5.3 cm LV Systolic Diameter PLAX 3.0 cm 2.1 - 4.0 cm LV Fractional Shortening PLAX 31.8 % 25 - 46 % LV Ejection Fraction 2D Teich 60.1 % IVS Diastolic Thickness 1.4 cm LVPW Diastolic Thickness 1.4 cm LV Relative Wall Thickness 0.6 RV Internal Dim ED PLAX 2.8 cm 1.9 - 3.8 cm LVOT Diameter 2.2 cm Aortic Root Diameter 3.6 cm LA Systolic Diameter LX 3.8 cm 3.0 - 4.0 / 2.7 - 3.8 cm LA Volume 45.0 cm 18 - 58 / 22 - 52 cm Ascending Aorta Diameter 3.3 cm DOPPLER AV Peak Velocity 129.0 cm/s AV Peak Gradient 6.7 mmHg AV Mean Velocity 93.5 cm/s AV Mean Gradient 4.0 mmHg AV Velocity Time Integral 28.3 cm LVOT Peak Velocity 111.0 cm/s LVOT Peak Gradient 4.9 mmHg LVOT Mean Velocity 76.1 cm/s LVOT Mean Gradient 3.0 mmHg LVOT Velocity Time Integral 23.8 cm LVOT Stroke Volume 90.5 cm AV Area Cont Eq vti 3.2 cm AV Area Cont Eq pk 3.3 cm MV Peak Velocity 109.0 cm/s MV Peak Gradient 4.8 mmHg MV Mean Velocity 57.9 cm/s MV Mean Gradient 2.0 mmHg Mitral E Point Velocity 79.0 cm/s Mitral A Point Velocity 96.3 cm/s Mitral E to A Ratio 0.8 MV PHT Velocity 87.7 cm/s MV Deceleration [place] 416.0 cm/s MV Pressure Half Time 63.2 ms MV Area PHT 3.5 cm MV Deceleration Time 227.0 ms TR Peak Velocity 79.1 cm/s TR Peak Gradient 2.5 mmHg Right Atrial Pressure 5.0 mmHg Pulmonary Artery Systolic Pressure 7.5 mmHg Right Ventricular Systolic Pressure 7.5 mmHg PV Peak Velocity 85.5 cm/s PV Peak Gradient 2.9 mmHg PV Mean Velocity 62.0 cm/s PV Mean Gradient 2.0 mmHg PV Velocity Time Integral 21.5 cm LV E' Lateral Velocity 8.2 cm/s Mitral E to LV E' Lateral Ratio 9.6 LV E' Septal Velocity 4.8 cm/s Mitral E to LV E' Septal Ratio 16.5
--- NOTE | 2018-03-08 14:14 | Cons- Infect Disease ---
General Information and HPI Consulting Request Date of Consult: 03/08/18 Requested By: Neetu Weems MD Reason for Consult: Unexplained fever Source of Information: patient, family History of Present Illness: This is a 72-year-old man with a history of hypertension, coronary artery disease, status post OK, COPD, maintained on 3 L of oxygen and CPAP at night, diabetes, status post multiple TIAs, Parkinson's disease and chronic back pain, status post recent surgery at [facility] and 5 months prior to admission, admitted on March 06 after he was found at home unresponsive and diaphoretic with shaking back and forth and with a blood sugar taken by EMS of 20. On admission he was afebrile, with a blood sugar of 90. Laboratory data revealed a white blood cell count of 14,000, BUN/creatinine 14 and 1.0, lactic acid 3.8, with normal liver enzymes. Urinalysis was negative. Chest x-ray was negative. CT of the abdomen and pelvis was negative. He was given one dose of Ceftriaxone and admitted to the ICU, where he was followed off antibiotics. On March 07 in the evening he spiked a fever to 102.3 but he has been afebrile since. He does note the development of a mild sore throat yesterday, which is improved today, a cough that is nonproductive, without shortness of breath or chest pain, and rhinorrhea. He denies any GI or symptoms. He does note chronic back pain. Allergies/Medications Allergies: Coded Allergies: morphine (Mild, RASH, ITCHY 10/02/17) Home Med List: Albuterol Sulfate (Proair Hfa) 90 MCG HFA.AER.AD 2 PUF INH PRN DYSPNEA ( Reported) Amlodipine (Norvasc) 2.5 MG TABLET 1 TAB PO DAILY HEART/BP (Reported) Aspirin (Ecotrin*) 81 MG TABLET.DR 1 TAB PO DAILY HEART/BLOOD (Reported) Atorvastatin Calcium 80 MG TABLET 0.5 TAB PO 1700 CHOLESTEROL (Reported) Budesonide/Formoterol Fumarate (Symbicort 80-4.5 Mcg Inhaler) 80 MCG-4.5 MCG/ ACTUATION HFA.AER.AD 2 PUF INH PRN SOB (Reported) Bupropion HCl (Bupropion XL) 300 MG TAB.ER.24H 1 TAB PO QAM DEPRESSION ( Reported) Chloraseptic (Phenaseptic) 1.4 % SPRAY 2 SPRAY EXT Q2P PRN PAIN Cyanocobalamin (Vitamin B-12) (Vitamin B12) (Unknown Strength) TABLET (Unknown Dose) PO DAILY SUPPLEMENT (Reported) Donepezil HCl (Aricept) 10 MG TABLET 1 TAB PO QAM MEMORY (Reported) Fludrocortisone Acetate 0.1 MG TABLET 0.5 TAB PO DAILY ORTHOSTATIC HYPOTENSION (Reported) Insulin Aspart (Novolog) (Unknown Strength) VIAL (Unknown Dose) DIABETES - PUMP (Reported) Latanoprost (Xalatan) 0.005 % DROPS 1 GTT OU QPM GLAUCOMA (Reported) Loratadine (Claritin) 10 MG TABLET 1 TAB PO DAILY ALLERGIES (Reported) Metoprolol Succ XL (Toprol XL) 25 MG TAB.ER.24H 0.5 TAB PO QAM BP (Reported) Rotigotine (Neupro) 1 MG/24 HOUR PATCH.TD24 1 PATCH TOP QAM PARKINSONS ( Reported) Tiotropium Riparius (Spiriva) 18 MCG CAP.W.DEV 1 CAP INH QAM COPD (Reported) Tramadol HCl 50 MG TABLET 1 TAB PO AD PRN PAIN (Reported) Ubidecarenone (Co Q-10) 100 MG CAPSULE 1 CAP PO DAILY SUPPLEMENT (Reported) Past History Travel History Traveled to [place] past 21 day No Medical History Neurological: CVA, Parkinson's disease, TIA EENT: glaucoma Cardiovascular: CAD (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), hypertension, hyperlipidemia, myocardial infarction, syncope, orthostatic hypotension Diabetic neuropathy Sensory ataxia Respiratory: COPD (on 3lpm), obstructive sleep apnea Gastrointestinal: NONE Hepatic: NONE Renal: NONE Musculoskeletal: fibromyalgia Psychiatric: anxiety, depression Endocrine: diabetes Blood Disorders: NONE Cancer(s): NONE 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 GI: Reports: no symptoms. Genitourinary: Reports: no symptoms. All Other Systems: Reviewed and Negative Exam & Diagnostic Data Last 24 Hrs of Vital Signs/I&O Vital Signs Date Time Temp Pulse Resp B/P B/P Pulse O2 O2 Flow FiO2 Mean Ox Delivery Rate 03/08 0847 98 180/78 03/08 0846 98 180/78 03/08 0821 97 Nasal 4.0L Cannula 03/08 0800 96 Nasal 3.0L Cannula 03/08 0800 99.2 92 20 180/78 96 Nasal 3.0L Cannula 03/08 0000 Nasal 3.0L Cannula 03/08 0000 100.4 92 20 142/60 Nasal 3.0L Cannula 03/07 2245 102.3 03/07 2100 86 95 03/07 2037 95 Nasal 3.0L Cannula 03/07 1600 97 Nasal 3.0L Cannula 03/07 1600 97.6 75 18 134/82 97 Nasal 3.0L Cannula Intake & Output 03/08 1600 03/08 0800 03/08 0000 Intake Total 200 120 Output Total 900 1120 Balance -700 -1000 Intake, Oral 200 120 Output, Urine 900 1120 Patient 215 lb Weight Physical Exam Other Physical Findings: He is awake and alert in no acute distress. T-max 102.3. Skin reveals no rash. HEENT exam mild pharyngeal erythema with no exudate. Neck is supple with no adenopathy. Lungs crackles at the left base. Heart regular rhythm with no murmur. Abdomen is soft, nontender with positive bowel sounds. Back no CVA tenderness. Extremities no cyanosis, clubbing or edema. Neuro mild right upper extremity weakness, with a mild tremor. Last 24 Hours of Lab Results: Laboratory Tests 03/08 0600 Chemistry Sodium (137 - 145 mmol/L) 133 L Potassium (3.5 - 5.1 mmol/L) 4.4 Chloride (98 - 107 mmol/L) 100 Carbon Dioxide (22 - 30 mmol/L) 29 Anion Gap (5 - 16) 5 BUN (9 - 20 mg/dL) 11 Creatinine (0.7 - 1.2 mg/dL) 0.9 Estimated GFR (>60 ml/min) > 60 Glucose (65 - 99 mg/dL) 247 H Calcium (8.4 - 10.2 mg/dL) 8.7 Phosphorus (2.5 - 4.5 mg/dL) 3.6 Magnesium (1.6 - 2.3 mg/dL) 1.8 Total Bilirubin (0.2 - 1.3 mg/dL) 0.9 AST (17 - 59 U/L) 25 ALT (21 - 72 U/L) 38 Albumin (3.5 - 5.0 g/dL) 3.2 L Hematology CBC w Diff NO MAN DIFF REQ WBC (4.8 - 10.8 /CUMM) 5.5 RBC (4.70 - 6.10 /CUMM) 3.70 L Hgb (14.0 - 18.0 G/DL) 11.9 L Hct (42 - 52 %) 34.8 L MCV (80.0 - 94.0 FL) 94.1 H MCH (27.0 - 31.0 PG) 32.1 H MCHC (33.0 - 37.0 G/DL) 34.2 RDW (11.5 - 14.5 %) 14.1 Plt Count (130 - 400 /CUMM) 181 MPV (7.4 - 10.4 FL) 8.8 Gran % (42.2 - 75.2 %) 75.5 H Lymphocytes % (20.5 - 51.1 %) 12.2 L Monocytes % (1.7 - 9.3 %) 10.1 H Eosinophils % (0 - 5 %) 1.9 Basophils % (0.0 - 2.0 %) 0.3 Absolute Granulocytes (1.4 - 6.5 /CUMM) 4.1 Absolute Lymphocytes (1.2 - 3.4 /CUMM) 0.7 L Absolute Monocytes (0.10 - 0.60 /CUMM) 0.6 Absolute Eosinophils (0.0 - 0.7 /CUMM) 0.1 Absolute Basophils (0.0 - 0.2 /CUMM) 0 Last 24 Hours of John Results: Blood cultures x 2 March 06 negative Blood cultures x 2 March 07/March 08 negative Urine strep pneumo antigen March 07 negative Quick strep negative, with throat culture positive for mixed rafal after one day Diagnostic Data Recent Imaging Findings: Chest x-ray March [address] of the abdomen and pelvis March 06 no acute process MRI of the head March 07 no acute infarct MRI of the lumbar spine March 07 no findings to suggest epidural abscess; postop changes at L4-L5 with underlying spondylotic changes resulting in a mass effect on the right more than the left L4 nerve roots; postop changes at L5-S1 with residual/recurrent disc herniation versus granulation tissue causing mass effect on the descending left S1 nerve root; additional degenerative changes resulting in mass effect on the right S1 nerve root and exiting left L5 nerve root CT of the head March 07 reveals a chronic right maxillary sinus opacification Carotid Dopplers March 07 reveals plaque in the right internal carotid artery with a 0-49% stenosis and with a normal left side Assessment/Plan Assessment/Plan Impression: This is a 72-year-old man with a history of COPD, maintained on 3 L of oxygen and CPAP at night, diabetes, Parkinson's disease and chronic back pain, status post recent surgery at [facility] and 5 months prior to admission, admitted on March 06 after he was found at home unresponsive and diaphoretic with a blood sugar of 20, found on admission to be afebrile with a mild leukocytosis and elevated lactic acid, with development of a fever last night, which has not recurred, with normalization of his white blood cell count and with no obvious focus of infection. The etiology of his recent fever is unclear. Given his episode of unresponsiveness aspiration must be considered and, given his cough and crackles at the left base, pneumonia should be ruled out. He has no other obvious focus of infection. His URI symptoms might suggest a viral process, though this is a diagnosis of exclusion. Noninfectious causes, including atelectasis or drug fever, could be considered, particularly as his white blood cell count is now normal. As he appears stable he can be followed off antibiotics, with further evaluation if his fevers recur. Suggestion: 1. Repeat chest x-ray 2. Follow-up recent cultures 3. Continue to follow off antibiotics pending above Consult Acknowledgment - Thank you for your consult request.
--- NOTE | 2018-03-08 15:15 | RADIOLOGY REPORT ---
EXAMINATION: XR CHEST CLINICAL INFORMATION: Fever and cough. COMPARISON: Chest x-ray 03/06/2018 TECHNIQUE: 2 views of the chest were obtained. FINDINGS: Low lung volume. Linear opacities of subsegmental atelectasis at both lung bases. There is no acute abnormality. There is no infiltrate. There is no pulmonary vascular congestion or pleural effusion. The cardiac and the mediastinal contours are normal. There are vascular wall calcifications of the aortic arch. Orthopedic plate and screw present at lower cervical spine. IMPRESSION: No acute abnormality of the chest. Low lung volume with bibasilar linear subsegmental atelectasis.
--- NOTE | 2018-03-08 15:43 | Event Note ---
Event Note Event Note: S: On MRI is showing some effacement or masslike effect, may be granulation tissue on L5-S1. We are trying to contact his orthopedic surgeon who did the surgery, Dr. Codey Alcazar if he wants to follow the patient as outpatient or if he wants us to evaluate the patient while he is inpatient. B:72 YO white M with a significant PMH of Parkinson's disease, Stroke > 10 years ago with residual right sided weakness, hypertension, hyperlipidemia, NE status post cardiac cath 10 years ago, anxiety, diabetes on insulin pump at home, came in with a chief complaint of passing out earlier today. Initially patient was admitted to ICU with a concern of mild hypothermia that resolved while patient was still in ED. Later on patient remained in ICU as telemetry hold. In ED patient received one dose of ceftriaxone considering his leukocytosis. On CT scan abdomen and pelvis there was suspicion of epidural abscess and lumbar region and patient had history of recent spine surgery. A/P: I spoke to his orthopedic surgeon who did the surgery Dr. Codey Alcazar and told him about MRI findings. He said it could be granulation tissue and he will take care of the patient as outpatient. Right now he is away from his office and he will come back in a week. I told about this conversation to my attending Dr. Valencia and she asked me to do the examination of the patient. Patient denied any numbness, tingling, urine incontinence, bowel incontinence. On rectal examination patient's sphincter tone is intact and there is no sensory loss around the anus. Patient reported that his sensations are always like this and there is no change in it. Patient had stroke in the past with right-sided residual deficit. Patient has 4 /5 power in upper and lower extremity on the right side as compared to left side 5/5.
[2018-03-08 16:00] VITALS: BP 110/58
[2018-03-08 22:00] VITALS: BP 124/50
[2018-03-09] VITALS: BP 120/60
[2018-03-09 06:31] LABS: ABSOLUTE BASOPHIL COUNT 0 /CUMM (0.0-0.2); ABSOLUTE EOSINOPHIL COUNT 0.2 /CUMM (0.0-0.7); ABSOLUTE GRANULOCYTE CT 3.2 /CUMM (1.4-6.5); ABSOLUTE LYMPH COUNT 0.9 /CUMM (1.2-3.4); ABSOLUTE MONOCYTE COUNT 0.6 /CUMM (0.10-0.60); BASOPHIL % 0.3 % (0.0-2.0); EOSINOPHIL % 4.6 % (0-5); GRANULOCYTE % 64.5 % (42.2-75.2); HEMATOCRIT 35.2 % (42-52); MEAN CORPUSCULAR HGB CONC 33.9 G/DL (33.0-37.0); MEAN CORPUSCULAR VOLUME 94.5 FL (80.0-94.0); MEAN PLATELET VOLUME 8.6 FL (7.4-10.4); PLATELET COUNT 177 /CUMM (130-400); RBC DISTRIBUTION WIDTH 13.9 % (11.5-14.5); RED BLOOD CELL CT 3.72 /CUMM (4.70-6.10); WHITE BLOOD CELL COUNT 4.9 /CUMM (4.8-10.8)
--- NOTE | 2018-03-09 07:18 | PN- Resident CRCU ---
RobertoWasco 03/09/18 0718: Subjective HPI/CRCU Issues: Mild hypothermia (Resolved) Syncope due to hypoglycemia.(Resolved) Reactive leukocytosis.(Resolved) History of COPD on 3 L of home oxygen. History of obstructive sleep apnea on CPAP at nighttime History of hypertension and hyperlipidemia History of diabetes on insulin pump History of orthostatic hypotension on fludrocortisone. History of CAD status post cardiac catheterization (no stent placement) x 3 History of Parkinson disease History of anxiety and depression History of back pain status post recent surgery. 24 Hour Events: No overnight events. Patient remained afebrile overnight. Seen and examined this morning. He denied chest pain, palpitation, nausea, vomiting, chills, fever, abdominal pain dysuria. He is using 3 L of oxygen that his baseline and maintaining saturation 98% and patient was complaining of burning sensation in the throat after potassium. He still has intermittent dry cough. He also reported having pain in sinuses but there is no tenderness. He denied headache. Objective Vital Signs & I&O Last 8 Hrs of Vitals and I&O: Intake & Output 03/09 1600 Intake Total 650 Output Total 1150 Balance -500 Intake, IV 0 Intake, Oral 650 Number 0 Bowel Movements Output, Urine 1150 Patient 216 lb Weight Exam General Appearance: well developed/nourished, no apparent distress, alert, awake Head: atraumatic Neck: normal inspection Respiratory: normal breath sounds, chest non-tender Cardiovascular: regular rate/rhythm Gastrointestinal: normal bowel sounds, soft, non-tender Extremities: b/l pedal edema grade 1 Skin Temp/Moisture Exam: Warm/Dry Sepsis Skin Exam (color): Normal for Ethnicity Current Medications: Current Medications Sig/Luiza Start time Last Medication Dose Route Stop Time Status Admin Acetaminophen 650 MG Q8P PRN 03/07 0130 AC PO Albuterol Sulfate 3 ML TID 03/07 1400 AC 03/09 INH 1341 Albuterol Sulfate 2 PUF 4 TIMES/DAY PRN 03/07 1257 AC INH Amlodipine Besylate 2.5 MG DAILY 03/07 09 AC 03/09 PO 0918 Aspirin Buffered 81 MG DAILY 03/07 0900 AC 03/09 PO 0918 Atorvastatin Calcium 40 MG 1700 03/07 1700 AC 03/08 PO 1636 Benzocaine/Menthol 1 LORNE Q2P PRN 03/07 1030 AC 03/09 PO 0916 Budesonide/ 2 PUF BID 03/07 0900 AC 03/09 Formoterol Fumarate INH 0916 Bupropion HCl 300 MG QAM 03/07 0900 AC 03/09 PO 0916 Donepezil HCl 10 MG QAM 03/07 0900 AC 03/09 PO 0918 Fludrocortisone 50 MCG DAILY 03/07 0900 AC 03/09 Acetate PO 0918 Fluticasone 2 SPRAY DAILY 03/09 1012 AC 03/09 Propionate KIM 1149 Guaifenesin 600 MG Q12 03/08 0957 AC 03/09 PO 0918 Heparin Sodium 5,000 UNIT Q8 03/07 0600 AC 03/09 (Porcine) SC 1412 Insulin Aspart 0 TIDAC/HS 03/08 0800 AC 03/09 SC 1148 Insulin Detemir 35 UNITS DAILY 03/08 0900 AC 03/09 SC 0916 Latanoprost 1 GTT QPM 03/07 2100 AC 03/08 OPH 2121 Loratadine 10 MG DAILY 03/07 1353 AC 03/09 PO 0918 Magnesium Oxide 400 MG ONE ONE 03/09 0730 DC 03/09 PO 03/09 0731 0810 Metoprolol Succinate 12.5 MG QAM 03/07 0900 AC 03/09 PO 0917 Naphazoline HCl/ 1 GTT TID 03/07 1409 AC 03/09 Pheniramine Maleate OPH 1413 Phenol 2 SPRAY Q2P PRN 03/07 1415 AC EXT Polyethylene Glycol 17 GM DAILY 03/07 0145 AC PO Potassium Chloride 20 MEQ ONCE ONE 03/09 0730 DC 03/09 PO 03/09 0731 0810 Senna 187 MG AT BEDTIME 03/07 0145 AC 03/08 PO 2118 Sodium Chloride 2 SPRAY Q4P PRN 03/09 1015 AC KIM Tiotropium [place] 1 PUF DAILY 03/07 1257 AC 03/09 INH 0916 Tramadol HCl 50 MG Q6-PRN PRN 03/08 2115 AC 03/09 PO 0810 Tramadol HCl 50 MG DAILY PRN 03/08 1500 DC 03/08 PO 1449 Tramadol HCl 50 MG ONCE PRN 03/08 0045 AC 03/08 PO 0047 Impression/Plan Impression/Problem List Impression: 72 YO white M with a significant PMH of Parkinson's disease, 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 Patient is tele hold in icu. We are seeing the patient on ICU floor for following problems. Syncopal episode: -Due to hypoglycemia. Hypoglycemia was probably due to very high basal rate during the daytime. Patient had blood sugar level 20 as found by EMS at home. Patient had sweating and dizziness. Could be due to orthosatatic hypotension as he is alrady on fludrocortisone. -His trops and EKGs remain negative for any ischemic cardiac injury. -His blood sugar level this morning was 100. -On carotid Doppler patient had right sided plaque in ICA with normal velocity consistent with munimal 0-49% stenosis and left side is normal. -His MRI head negative for any acute infarct and his EEG is abnormal due to low amplitude due to mild cerebral dysfunction but overall didn't show any seizure activity. -Echo showed EF 55-60% Hypothermia:(Resolved) -Patient had mild hypothermia with temperature 95.1 -Patient was admitted in ICU for bear hugers although his hypothermia had already been resolved. -This morning his temperature was 98.8 Hyperkalemia:(Resolved) -Patient patient's potassium level was 3.5 that was repleted and later on his potassium level came back 6.0 -Patient was given 1 Kayexalate and his EKG was showing hyperacute T waves that' s why he was given 1 dose of calcium gluconate. -His k today is 3.8 and was repleted. Abnormal imaging study: -On CT scan abdomen and pelvis with IV contrast, there is questionable subdural abscess although patient is afebrile and`his leukocytosis has been resolved. -Patient had lactic acidosis resolved. -He received one dose of ceftriaxone in ED -His MRI lumbar spine remained negative for any epidural abscess. -Spoke to his orthopedic surgeon who did the surgery and he mentioned that she will take care of the patient as outpatient in one week as there was concern of masslike affect on MRI in lumbar region. Fever: -Patient remained afibrile over night. He spiked fever once possibly due to viral URI. -His chest x-ray is negative for aspiration. -Patient didn't has sinus tenderness but c/o sinus pain this morning. Possibly patient has sinus infection. -Flonase and saline spray for sinus pain. Humidified oxygen. -ID recommended to watch him off antibiotics for now. -Follow-up blood cultures Throat pain: -Patient reported throat pain after potassium pill. Patient was advised to stay upright for sometime after potassium pill. -His strep throat swab is pending. -Chloraseptic lozanges and spray as needed. -His strep urine antigen is negative. History of diabetes: -Type 1 diabetes diagnosed in 20s according to patient. -Patient was on insulin pump for his baseline requirements. -Patient's insulin pump has been removed by his . -Endocrinology recommended Levemir 35 units subcutaneous daily. -Novolog according to new sliding scale recommended by endo. -Accu-Cheks -Continue same regimen as his blood sugar level is under control. History of hypertension and hyperlipidemia: -Continue metoprolol and Lipitor -Continue amlodipine History of COPD/KASSY: -Continue supplemental O2 3L -Continue TRC nebulization as needed -Continue CPAP at nighttime -Continue Symbicort inhaler and Ventolin. History of CAD status post cardiac catheterization: -Continue aspirin History of dementia: -Continue donepezil History of orthostatic hypotension: -Possibly due to adrenal insufficiency. -Continue fludrocortisone 50 g daily. -Follow-up orthostatic vitals patient may need another medication for his orthostatic hypotension like medodrine. History of Parkinson disease: -Continue neupro patch 1mg/24hrs History of anxiety and depression; -Continue bupropion History of back pain: -Status post recent back surgery. Follow-up pain pathway for pain management. -Continue tramadol 50 mg once by mouth when necessary. DVT prophylaxis; Mechanical and subcutaneous heparin CODE STATUS: Full code Problem List: 1. Hypothermia 2. Hypoglycemia due to insulin 3. Syncope Pain Ratin Pain Location: none Pain Plan: pain pathway Tomorrow's Labs & Rationales: cbc/icu bundle Plan DVT/Prophylaxis: mechanical, pharmacological Roc Carrera 03/09/18 1034: Attending MD Review Statement Attending Sign Off Attending Cosign Statement: I have: examined this patient, reviewed [facility] EMR data, discussd w/resident/PA/ PATIENT RELATIONS COORDINATOR, discussed mgmt plan w/pt, agreed w/resident/PA/PATIENT RELATIONS COORDINATOR. Other Findings: Pt complaining of headache and pain in rt maxillary area. gives h/o sinus infections in past and feels like his sinuses are acting up. Pt gives h/o sinus surgery about 20 years ago . will start him on saline spray and flonase. change oxygen to humidified oxygen. Staying afebrile off abx for now. No more seizure episodes and blood sugars are better, no more hypoglycemic episodes. Plan is to transfer the pt to [facility]. Cont to monitor closely.
[2018-03-09 08:00] VITALS: BP 160/90
--- NOTE | 2018-03-09 09:32 | PN- Diabetes ---
Assessment/Plan Diabetes Assessment: This is a 72 Y M presented with hypoglycemia and change in mental status. Hypoglycemia is probably due to very high basal rate during the daytime. Based on his glucose level yesterday, his meal time insulin need is probably about 10 units Plan: Please see recommended change to Novolog scale as belows. Check BG ACHS Continue low carb diet. Inpatient Diabetes Orders Before Each Meal: < 80 mg/dl: 0 80-100 mg/dl: 9 101-120 mg/dl: 9 121-150 mg/dl: 9 151-200 mg/dl: 11 201-250 mg/dl: 13 251-300 mg/dl: 15 301-350 mg/dl: 17 351-400 mg/dl: 19 > 400 mg/dl: 21 Bedtime: < 80 mg/dl: 0 80-100 mg/dl: 0 101-120 mg/dl: 0 121-150 mg/dl: 0 151-200 mg/dl: 2 201-250 mg/dl: 4 251-300 mg/dl: 6 301-350 mg/dl: 8 351-400 mg/dl: 10 > 400 mg/dl: 12 Subjective Subjective: BG has been about 200-250 yesterday. Objective Last 24 Hrs of Vital Signs/I&O Vital Signs Date Time Temp Pulse Resp B/P B/P Pulse O2 O2 Flow FiO2 Mean Ox Delivery Rate 03/09 0918 80 160/90 03/09 0917 80 160/90 03/09 0848 95 Nasal 3.0L Cannula 03/09 0800 97.7 80 20 160/90 96 Nasal 3.0L Cannula 03/09 0800 96 Nasal 3.0L Cannula 03/09 0058 89 98 03/09 0000 94 CPAP 3.0L 03/09 0000 98.8 74 20 120/60 94 Nasal 3.0L Cannula 03/08 2210 88 97 03/08 2200 98.8 82 18 124/50 CPAP 03/08 2015 97 Nasal 3.0L Cannula 03/08 2000 Nasal 3.0L Cannula 03/08 1600 Nasal 3.0L Cannula 03/08 1600 99.0 81 18 110/58 99 Nasal 3.0L Cannula Intake & Output 03/09 1600 03/09 0800 0815 0000 Intake Total 0 220 Output Total 0 Balance 0 220 Intake, Oral 0 220 Output, Urine 0 Patient 215 lb Weight
--- NOTE | 2018-03-09 10:38 | PN- Infect Dx ---
Subjective Subjective: Afebrile. He notes nasal congestion. His throat discomfort has improved. He still notes a mild cough, which is nonproductive, and shortness of breath, with no chest pain Objective Last 24 Hrs of Vital Signs/I&O Vital Signs Date Time Temp Pulse Resp B/P B/P Pulse O2 O2 Flow FiO2 Mean Ox Delivery Rate 03/09 0918 80 160/90 03/09 0917 80 160/90 03/09 0848 95 Nasal 3.0L Cannula 03/09 0800 97.7 80 20 160/90 96 Nasal 3.0L Cannula 03/09 0800 96 Nasal 3.0L Cannula 03/09 0058 89 98 03/09 0000 94 CPAP 3.0L 03/09 0000 98.8 74 20 120/60 94 Nasal 3.0L Cannula 03/08 2210 88 97 03/08 2200 98.8 82 18 124/50 CPAP 03/08 2015 97 Nasal 3.0L Cannula 03/08 2000 Nasal 3.0L Cannula 03/08 1600 Nasal 3.0L Cannula 03/08 1600 99.0 81 18 110/58 99 Nasal 3.0L Cannula Intake & Output 03/09 1600 03/09 0800 03/09 0000 Intake Total 0 220 Output Total 0 Balance 0 220 Intake, Oral 0 220 Output, Urine 0 Patient 216 lb 215 lb Weight Physical Exam Other Physical Findings: He appears comfortable in no acute distress HEENT no sinus tenderness; no pharyngeal erythema or exudate Lungs are clear Heart regular rhythm with no murmur Abdomen is soft, nontender with positive bowel sounds Extremities 1+ edema both lower extremities Results Last 24 Hours of Lab Results: Laboratory Tests 03/09 0600 Chemistry Sodium (137 - 145 mmol/L) 135 L Potassium (3.5 - 5.1 mmol/L) 3.8 Chloride (98 - 107 mmol/L) 99 Carbon Dioxide (22 - 30 mmol/L) 30 Anion Gap (5 - 16) 6 BUN (9 - 20 mg/dL) 9 Creatinine (0.7 - 1.2 mg/dL) 0.9 Estimated GFR (>60 ml/min) > 60 Glucose (65 - 99 mg/dL) 100 H Calcium (8.4 - 10.2 mg/dL) 8.5 Phosphorus (2.5 - 4.5 mg/dL) 4.2 Magnesium (1.6 - 2.3 mg/dL) 1.9 Total Bilirubin (0.2 - 1.3 mg/dL) 0.8 AST (17 - 59 U/L) 25 ALT (21 - 72 U/L) 43 Albumin (3.5 - 5.0 g/dL) 3.2 L Hematology CBC w Diff NO MAN DIFF REQ WBC (4.8 - 10.8 /CUMM) 4.9 RBC (4.70 - 6.10 /CUMM) 3.72 L Hgb (14.0 - 18.0 G/DL) 11.9 L Hct (42 - 52 %) 35.2 L MCV (80.0 - 94.0 FL) 94.5 H MCH (27.0 - 31.0 PG) 32.0 H MCHC (33.0 - 37.0 G/DL) 33.9 RDW (11.5 - 14.5 %) 13.9 Plt Count (130 - 400 /CUMM) 177 MPV (7.4 - 10.4 FL) 8.6 Gran % (42.2 - 75.2 %) 64.5 Lymphocytes % (20.5 - 51.1 %) 17.4 L Monocytes % (1.7 - 9.3 %) 13.2 H Eosinophils % (0 - 5 %) 4.6 Basophils % (0.0 - 2.0 %) 0.3 Absolute Granulocytes (1.4 - 6.5 /CUMM) 3.2 Absolute Lymphocytes (1.2 - 3.4 /CUMM) 0.9 L Absolute Monocytes (0.10 - 0.60 /CUMM) 0.6 Absolute Eosinophils (0.0 - 0.7 /CUMM) 0.2 Absolute Basophils (0.0 - 0.2 /CUMM) 0 Last 24 Hours of John Results: Blood cultures X 2 March 06 negative Blood cultures X 2 March 07/March 08 negative Throat culture March 07 mixed rafal Recent Imaging Studies: Chest x-ray March 08 bibasilar atelectasis Assessment/Plan ID Impression: Stable, with no further fevers and with his white blood cell count remaining normal, off antibiotics. He continues to have nasal congestion and cough, possibly suggestive of a viral illness, with his CT and MRI revealing maxillary sinusitis, possibly chronic in nature. His chest x-ray is more suggestive of atelectasis than pneumonia and, as long as he remains febrile, he can continue to be followed off antibiotics. Suggestion: 1. Continue to follow off antibiotics
[2018-03-09 15:35] VITALS: BP 130/70
[2018-03-09 17:40] VITALS: BP 122/62
[2018-03-09 22:04] VITALS: BP 135/66
[2018-03-10] VITALS (8 sets, daily range): BP systolic 122–184; BP diastolic 60–80
--- NOTE | 2018-03-10 07:35 | PN- Housestaff ---
Cassidy Steiner 03/10/18 0735: Subjective Follow-up For: HYpoglycemia, Hypothermia, Syncope Subjective: Patient was seen and examined at bedside. He complainedo of tightness in his chest. An EKG was done which was unchanged from his previous EKG. The patient denied fever, chills, nausea, vomiting, diarrhea. However, a little later, I was called in by the nurse to evaluate the patient. He was shaking, covered in blankets, and said he was "freezing". His temperature was 98.2, pulse 88, BP 180 /72. His blood sugar was > [address] Porter was consulted and her was given 16 units of insulin. Review of Systems Constitutional: Reports: see HPI. Objective Last 24 Hrs of Vital Signs/I&O Vital Signs Date Time Temp Pulse Resp B/P B/P Pulse O2 O2 Flow FiO2 Mean Ox Delivery Rate 03/10 1950 96 Nasal 2.0L Cannula 03/10 1600 Nasal 2.0L Cannula 03/10 1427 98.4 85 18 122/72 95 Nasal 2.0L Cannula 03/10 1200 95 Nasal 2.0L Cannula 03/10 1045 80 22 160/80 95 Nasal 2.0L Cannula 03/10 1013 80 184/80 03/10 0953 100.0 87 18 174/80 96 Nasal 2.0L Cannula 03/10 0937 100.0 03/10 0936 98.1 86 22 184/80 95 Nasal 2.0L Cannula 03/10 0925 98.1 184/80 03/10 0830 96 Nasal 2.0L Cannula 03/10 0800 95 Nasal 2.0L Cannula 03/10 0747 98.1 76 22 140/80 96 Nasal 2.0L Cannula 03/10 0658 98.5 77 20 128/60 96 Nasal 2.0L Cannula 03/10 0025 71 97 03/10 0000 96 Nasal 2.0L Cannula 03/09 2234 69 96 03/09 2204 97.8 71 20 135/66 98 Nasal 3.0L Cannula Intake & Output 03/10 1600 16 0800 03/10 0000 Intake Total 800 970 250 Output Total 350 1050 300 Balance 450 -80 -50 Intake, IV 20 10 10 Intake, Oral 780 960 240 Number 1 Bowel Movements Output, Urine 350 1050 300 Patient 220 lb Weight Physical Exam General Appearance: Alert, Oriented X3, Cooperative, Mild Distress Skin: No Rashes, No Breakdown Neck: Supple Cardiovascular: Regular Rate, Normal S1, Normal S2 Lungs: Clear to Auscultation Assessment/Plan Assessment: 72 YO M with a significant PMH of Parkinson's disease, Stroke > 10 years ago with residual right sided weakness, hypertension, hyperlipidemia, CA status post cardiac cath, anxiety, diabetes on insulin pump at home was transferred to [facility] from ICU last night after being evaluated for hycoglycemia induced syncope Syncopal episode: -Hypoglycemia induced vs Orthostatic. Was found to be severely hypoglycemic in the ED. Had dizziness and sweating before passing out. -His trops and EKGs remain negative for any ischemic cardiac injury. -His blood sugar level this morning was >500 on the glucometer -His MRI head negative for any acute infarct and his EEG is abnormal due to low amplitude due to mild cerebral dysfunction but overall didn't show any seizure activity. -Echo showed EF 55-60% -Hypothermia:(Resolved) -Patient had mild hypothermia with temperature 95.1 -Patient was admitted in ICU for bear hugers although his hypothermia had already been resolved. -This morning his temperature was 98.1 Hyperkalemia:(Resolved) His K was 5.5 in the morning today Abnormal imaging study: -On CT scan abdomen and pelvis with IV contrast, there is questionable subdural abscess although patient is afebrile and`his leukocytosis has been resolved. -Patient had lactic acidosis resolved. -He received one dose of ceftriaxone in ED -His MRI lumbar spine remained negative for any epidural abscess. -Spoke to his orthopedic surgeon who did the surgery and he mentioned that she will take care of the patient as outpatient in one week as there was concern of masslike affect on MRI in lumbar region. Fever: Patient is afebrile at present -Patient didn't has sinus tenderness but c/o sinus pain this morning. Possibly patient has sinus infection. -Flonase and saline spray for sinus pain. Humidified oxygen. -ID input appreciated. Will start the patient on Amoxicillin 875 PO q12 -Follow-up blood cultures Throat pain: -Patient reported throat pain after potassium pill. Patient was advised to stay upright for sometime after potassium pill. -Chloraseptic lozanges and spray as needed. -His strep urine antigen is negative. History of diabetes: -Type 1 diabetes diagnosed in 20s according to patient. -Patient was on insulin pump for his baseline requirements. -Patient's insulin pump has been removed by his . -Endocrinology recommended Levemir 35 units subcutaneous daily. -Novolog according to new sliding scale recommended by endo. -Accu-Cheks -Continue same regimen as his blood sugar level is under control. History of hypertension and hyperlipidemia: -Continue metoprolol and Lipitor -Continue amlodipine History of COPD/KASSY: -Continue supplemental O2 3L -Continue TRC nebulization as needed -Continue CPAP at nighttime -Continue Symbicort inhaler and Ventolin. History of CAD status post cardiac catheterization: -Continue aspirin History of dementia: -Continue donepezil History of orthostatic hypotension: -Possibly due to adrenal insufficiency. -Continue fludrocortisone 50 g daily. -Follow-up orthostatic vitals patient may need another medication for his orthostatic hypotension like medodrine. History of Parkinson disease: -Continue neupro patch 1mg/24hrs History of anxiety and depression; -Continue bupropion History of back pain: -Status post recent back surgery. Follow-up pain pathway for pain management. -Continue tramadol 50 mg once by mouth when necessary. DVT prophylaxis; Mechanical and subcutaneous heparin CODE STATUS: Full code Problem List: 1. Diabetic hypoglycemia 2. Hyperkalemia 3. Brittle diabetes 4. Hypertension 5. Hyperglycemia Pain Ratin Pain Location: na Pain Goal: Remain pain free Pain Plan: na Tomorrow's Labs & Rationales: cbc and bep with glucose Bonifacio Nolasco 03/10/18 1156: Attending MD Review Statement Attending Statement Attending MD Statement: examined this patient, discuss w/resident/PA/SPECIAL PROCEDURES NURSE, agreed w/resident/PA/SPECIAL PROCEDURES NURSE, discussed with family, reviewed EMR data (avail), discussed with nursing, discussed with case mgmt, reviewed images, amended to note Attending Assessment/Plan: Patient with tremors/chills this morning. Mental status intact. Blood sugars found to be elevated 422. Endocrinology f/u. BP elevated Staying afebrile off abx for now. Tmax 100.0, thought viral process. f/u ID. H/o seizure disorder. h/o abnormal imaging study with no acute deficits (thought to be granulation tissue). F/u orthopedics as outpatient. Diabetes with uncontrolled hyperglycemia. f/u endo, Hypertension c/w antihypertensives History of orthostatic hypotension: Continue fludrocortisone 50 g daily. History of anxiety and depression Continue bupropion Cont to monitor closely. gi/dvt prophyalxis.
[2018-03-10 10:51] LABS: ABSOLUTE BASOPHIL COUNT 0 /CUMM (0.0-0.2); ABSOLUTE EOSINOPHIL COUNT 0.1 /CUMM (0.0-0.7); ABSOLUTE GRANULOCYTE CT 5.1 /CUMM (1.4-6.5); ABSOLUTE LYMPH COUNT 0.6 /CUMM (1.2-3.4); ABSOLUTE MONOCYTE COUNT 0.5 /CUMM (0.10-0.60); BASOPHIL % 0.1 % (0.0-2.0); GRANULOCYTE % 81.1 % (42.2-75.2); HEMATOCRIT 37.4 % (42-52); MEAN CORPUSCULAR HGB 31.8 PG (27.0-31.0); MEAN CORPUSCULAR HGB CONC 33.6 G/DL (33.0-37.0); MEAN CORPUSCULAR VOLUME 94.6 FL (80.0-94.0); MEAN PLATELET VOLUME 9.8 FL (7.4-10.4); PLATELET COUNT 183 /CUMM (130-400); RBC DISTRIBUTION WIDTH 13.6 % (11.5-14.5); RED BLOOD CELL CT 3.96 /CUMM (4.70-6.10); WHITE BLOOD CELL COUNT 6.3 /CUMM (4.8-10.8)
--- NOTE | 2018-03-10 12:54 | PN- Infect Dx ---
Subjective Subjective: T-max 100. He complains of low back and left hip pain, which are chronic complaints, and persistent nasal congestion, with a mild cough and shortness of breath Objective Last 24 Hrs of Vital Signs/I&O Vital Signs Date Time Temp Pulse Resp B/P B/P Pulse O2 O2 Flow FiO2 Mean Ox Delivery Rate 03/10 1045 80 22 160/80 95 Nasal 2.0L Cannula 03/10 1013 80 184/80 03/10 0953 100.0 87 18 174/80 96 Nasal 2.0L Cannula 03/10 0937 100.0 03/10 0936 98.1 86 22 184/80 95 Nasal 2.0L Cannula 03/10 0925 98.1 184/80 03/10 0830 96 Nasal 2.0L Cannula 03/10 0800 95 Nasal 2.0L Cannula 03/10 0747 98.1 76 22 140/80 96 Nasal 2.0L Cannula 03/10 0658 98.5 77 20 128/60 96 Nasal 2.0L Cannula 03/10 0025 71 97 03/10 0000 96 Nasal 2.0L Cannula 03/09 2234 69 96 03/09 2204 97.8 71 20 135/66 98 Nasal 3.0L Cannula 03/09 1950 98 Nasal 3.0L Cannula 03/09 1740 98.7 73 18 122/62 98 Nasal 3.0L Cannula 03/09 1538 96 Nasal 3.0L Cannula 03/09 1535 97.8 76 20 130/70 98 Nasal 3.0L Cannula Intake & Output 03/10 1600 03/10 0800 03/10 0000 Intake Total 490 970 250 Output Total 1050 300 Balance 490 -80 -50 Intake, IV 10 10 10 Intake, Oral 480 960 240 Number 1 Bowel Movements Output, Urine 1050 300 Patient 220 lb Weight Physical Exam Other Physical Findings: He appears uncomfortable but in no acute distress, on 2 L of nasal oxygen HEENT no sinus tenderness Lungs decreased breath sounds at the left base Heart regular rhythm with no murmur Abdomen soft, nontender with positive bowel sounds Extremities 1+ edema both lower extremities Results Last 24 Hours of Lab Results: Laboratory Tests 03/10 03/10 0942 0942 Chemistry Sodium (137 - 145 mmol/L) Cancelled 135 L Potassium (3.5 - 5.1 mmol/L) Cancelled 5.5 H Chloride (98 - 107 mmol/L) Cancelled 99 Carbon Dioxide (22 - 30 mmol/L) Cancelled 30 Anion Gap (5 - 16) Cancelled 6 BUN (9 - 20 mg/dL) Cancelled 13 Creatinine (0.7 - 1.2 mg/dL) Cancelled 0.8 Estimated GFR (>60 ml/min) > 60 BUN/Creatinine Ratio (7 - 25 %) Cancelled 16.3 Glucose (65 - 99 mg/dL) Cancelled 422 H Calcium (8.4 - 10.2 mg/dL) 8.3 L Phosphorus (2.5 - 4.5 mg/dL) 3.1 Magnesium (1.6 - 2.3 mg/dL) 1.8 Total Bilirubin (0.2 - 1.3 mg/dL) 0.5 AST (17 - 59 U/L) 26 ALT (21 - 72 U/L) 40 Albumin (3.5 - 5.0 g/dL) 3.2 L Hematology CBC w Diff NO MAN DIFF REQ WBC (4.8 - 10.8 /CUMM) 6.3 RBC (4.70 - 6.10 /CUMM) 3.96 L Hgb (14.0 - 18.0 G/DL) 12.6 L Hct (42 - 52 %) 37.4 L MCV (80.0 - 94.0 FL) 94.6 H MCH (27.0 - 31.0 PG) 31.8 H MCHC (33.0 - 37.0 G/DL) 33.6 RDW (11.5 - 14.5 %) 13.6 Plt Count (130 - 400 /CUMM) 183 MPV (7.4 - 10.4 FL) 9.8 Gran % (42.2 - 75.2 %) 81.1 H Lymphocytes % (20.5 - 51.1 %) 9.4 L Monocytes % (1.7 - 9.3 %) 7.4 Eosinophils % (0 - 5 %) 2.0 Basophils % (0.0 - 2.0 %) 0.1 Absolute Granulocytes (1.4 - 6.5 /CUMM) 5.1 Absolute Lymphocytes (1.2 - 3.4 /CUMM) 0.6 L Absolute Monocytes (0.10 - 0.60 /CUMM) 0.5 Absolute Eosinophils (0.0 - 0.7 /CUMM) 0.1 Absolute Basophils (0.0 - 0.2 /CUMM) 0 Last 24 Hours of John Results: Blood cultures x 2 March 07/March 08 negative Assessment/Plan ID Impression: Low-grade fevers, with his white blood cell count remaining normal, off antibiotics, possibly secondary to a sinusitis, given his complaints of nasal congestion and cough and with his CT and MRI of the head revealing maxillary sinusitis, though this was felt to be chronic in nature. Given his intermittent fevers and above complaints that may be reasonable to treat him for the possibility of a bacterial sinusitis. Suggestion: 1. Begin Augmentin 875 mg p.o. every 12 hours
--- NOTE | 2018-03-10 13:55 | PN- Diabetes ---
Assessment/Plan Diabetes Assessment: This is a 72 Y M presented with hypoglycemia and change in mental status. Hypoglycemia is probably due to very high basal rate during the daytime. He received meal time Novolog coverage for bedtime, which led to hypoglycemia Plan: I have talked with the nursing staff about the issue today, so this does not happen in the future. Please continue the same dose of Levemir and Novolog as recommended from yesterday. Will follow. Subjective Subjective: Patient was mistakenly given 9 units of Novolog for glucose of 99 last night. Then he developed hypoglycemia this morning. After breakfast, blood glucose went up to over 400 as he did not get Novolog before breakfast. Objective Last 24 Hrs of Vital Signs/I&O Vital Signs Date Time Temp Pulse Resp B/P B/P Pulse O2 O2 Flow FiO2 Mean Ox Delivery Rate 03/10 1200 95 Nasal 2.0L Cannula 03/10 1045 80 22 160/80 95 Nasal 2.0L Cannula 03/10 1013 80 184/80 03/10 0953 100.0 87 18 174/80 96 Nasal 2.0L Cannula 03/10 0937 100.0 03/10 0936 98.1 86 22 184/80 95 Nasal 2.0L Cannula 03/10 0925 98.1 184/80 03/10 0830 96 Nasal 2.0L Cannula 03/10 0800 95 Nasal 2.0L Cannula 03/10 0747 98.1 76 22 140/80 96 Nasal 2.0L Cannula 03/10 0658 98.5 77 20 128/60 96 Nasal 2.0L Cannula 03/10 0025 71 97 03/10 0000 96 Nasal 2.0L Cannula 03/09 2234 69 96 03/09 2204 97.8 71 20 135/66 98 Nasal 3.0L Cannula 03/09 1950 98 Nasal 3.0L Cannula 03/09 1740 98.7 73 18 122/62 98 Nasal 3.0L Cannula 03/09 1538 96 Nasal 3.0L Cannula 03/09 1535 97.8 76 20 130/70 98 Nasal 3.0L Cannula Intake & Output 03/10 1600 16 0800 03/10 0000 Intake Total 490 970 250 Output Total 1050 300 Balance 490 -80 -50 Intake, IV 10 10 10 Intake, Oral 480 960 240 Number 1 Bowel Movements Output, Urine 1050 300 Patient 220 lb Weight
[2018-03-11 07:00] VITALS: BP 122/67
--- NOTE | 2018-03-11 07:27 | PN- Housestaff ---
Cassidy Steiner 03/11/18 0727: Subjective Follow-up For: Hypoglycemia induced syncope Subjective: Patient was seen and examined at bedside in the morning. He had 2 hypoglycemic episodes in the afternoon yesterday when his blood glucose dropped to the 50s. The previous night, i.e the night of 03/09, the nurse apparently misread misread the insulin scale of the patient and gave him insulin according to the sliding scale instead of the bedtime scale. He got 9 units of insulin when his blood suagr was 99 at bedtime. Yesterday, his blood sugar on the glucometer was >500 at about 9.30 in the morning. After discussing with , he was given a one time dose of 16 units of insulin. A venous blood draw was sent which showed the patient's blood sugar was 422. The patient was again given 17 units of insulin at 11.50 and developed hypoglycemia in the afternoon. We ordered q1h blood glucose readings for the next 4 hours and the nurses were told to intimate the stereoptic projection topographer housestaff before administering any insulin. His sugar level was stable after 17:00 yesterday, fluctuating between 129 to 262 at 21:00 His fasting blood sugar was 160 in the morning today. When I went to see the patient in the morning, he was having his breakfast. He was not given any insulin coverage before breakfast. During rounds, at about 9.30, the patint had still not got any insulin. We got the blood sugar rechecked which was upto 300s. He was given Novolog and Levemir at together, thereafter. The patient saturated to the 70s while walking today. He is on 2L home Oxygen for his COPD. He would be needing to continue it given his chronic COPD and his tendency to desaturate while walking. Review of Systems Constitutional: Reports: see HPI. 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 He was inadvertently given high dose of short acting insulin yesterday after which he developed hypoglycemia. His blood sugar is stable at this time. Syncopal episode: -Hypoglycemia induced vs Orthostatic. Was found to be severely hypoglycemic in the ED. Had dizziness and sweating before passing out. -His trops and EKGs remain negative for any ischemic cardiac injury. -His blood sugar level this morning was >500 on the glucometer -His MRI head negative for any acute infarct and his EEG is abnormal due to low amplitude due to mild cerebral dysfunction but overall didn't show any seizure activity. -Echo showed EF 55-60% -Hypothermia:(Resolved) -Patient had mild hypothermia with temperature 95.1 -Patient was admitted in ICU for bear hugers although his hypothermia had already been resolved. -This morning his temperature was 98.1 Hyperkalemia:(Resolved) His K was 5.5 in the morning today Abnormal imaging study: -On CT scan abdomen and pelvis with IV contrast, there is questionable subdural abscess although patient is afebrile and`his leukocytosis has been resolved. -Patient had lactic acidosis resolved. -He received one dose of ceftriaxone in ED -His MRI lumbar spine remained negative for any epidural abscess. -Spoke to his orthopedic surgeon who did the surgery and he mentioned that she will take care of the patient as outpatient in one week as there was concern of masslike affect on MRI in lumbar region. Fever: Patient is afebrile at present -Patient didn't has sinus tenderness but c/o sinus pain this morning. Possibly patient has sinus infection. -Flonase and saline spray for sinus pain. Humidified oxygen. -ID input appreciated. Will start the patient on Amoxicillin 875 PO q12 -Follow-up blood cultures Throat pain: -Patient reported throat pain after potassium pill. Patient was advised to stay upright for sometime after potassium pill. -Chloraseptic lozanges and spray as needed. -His strep urine antigen is negative. History of diabetes: -Type 1 diabetes diagnosed in 20s according to patient. -Patient was on insulin pump for his baseline requirements. -Patient's insulin pump has been removed by his . -Endocrinology recommended Levemir 35 units subcutaneous daily. -Novolog according to new sliding scale recommended by endo. -Accu-Cheks -Continue same regimen as his blood sugar level is under control. History of hypertension and hyperlipidemia: -Continue metoprolol and Lipitor -Continue amlodipine History of COPD/KASSY: -Continue supplemental O2 3L -Continue TRC nebulization as needed -Continue CPAP at nighttime -Continue Symbicort inhaler and Ventolin. History of CAD status post cardiac catheterization: -Continue aspirin History of dementia: -Continue donepezil History of orthostatic hypotension: -Possibly due to adrenal insufficiency. -Continue fludrocortisone 50 g daily. -Follow-up orthostatic vitals patient may need another medication for his orthostatic hypotension like medodrine. History of Parkinson disease: -Continue neupro patch 1mg/24hrs History of anxiety and depression; -Continue bupropion History of back pain: -Status post recent back surgery. Follow-up pain pathway for pain management. -Continue tramadol 50 mg once by mouth when necessary. DVT prophylaxis; Mechanical and subcutaneous heparin CODE STATUS: Full code Problem List: 1. Brittle diabetes 2. Diabetic hypoglycemia 3. Hyperglycemia 4. Syncope 5. Hypothermia Pain Ratin Pain Location: na Pain Goal: Remain pain free Pain Plan: na Tomorrow's Labs & Rationales: Bonifacio Zaidi 03/11/18 1032: Attending MD Review Statement Attending Statement Attending MD Statement: examined this patient, discuss w/resident/PA/[employer], agreed w/resident/PA/[employer], discussed with family, reviewed EMR data (avail), discussed with nursing, discussed with case mgmt, reviewed images, amended to note Attending Assessment/Plan: Patient no new complaints reported. Blood sugars mild elevated. Endocrinology f/ u. BP better Sinusitis started empirically on augmentin 875 bid PO as per ID. H/o seizure disorder. h/o abnormal imaging study with no acute deficits (thought to be granulation tissue). F/u orthopedics as outpatient. Diabetes with uncontrolled hyperglycemia. f/u endo, Obtain discharge recommendations for insulin regimen and close outpatient follow up. Hypertension c/w antihypertensives History of orthostatic hypotension: Continue fludrocortisone 50 g daily. History of anxiety and depression Continue bupropion Anticipate discharge if ok with endocrinology. Arrange home health services.
[2018-03-11 07:59] LABS: ABSOLUTE BASOPHIL COUNT 0 /CUMM (0.0-0.2); ABSOLUTE EOSINOPHIL COUNT 0.2 /CUMM (0.0-0.7); ABSOLUTE GRANULOCYTE CT 2.5 /CUMM (1.4-6.5); ABSOLUTE LYMPH COUNT 1.1 /CUMM (1.2-3.4); ABSOLUTE MONOCYTE COUNT 0.4 /CUMM (0.10-0.60); BASOPHIL % 0.4 % (0.0-2.0); EOSINOPHIL % 4.8 % (0-5); GRANULOCYTE % 58.7 % (42.2-75.2); HEMATOCRIT 33.5 % (42-52); MEAN CORPUSCULAR HGB 32.5 PG (27.0-31.0); MEAN CORPUSCULAR HGB CONC 34.4 G/DL (33.0-37.0); MEAN CORPUSCULAR VOLUME 94.5 FL (80.0-94.0); MEAN PLATELET VOLUME 9.3 FL (7.4-10.4); PLATELET COUNT 175 /CUMM (130-400); RED BLOOD CELL CT 3.55 /CUMM (4.70-6.10); WHITE BLOOD CELL COUNT 4.2 /CUMM (4.8-10.8)
--- NOTE | 2018-03-11 10:20 | PN- Diabetes ---
Assessment/Plan Diabetes Assessment: Patient developed hypoglycemia yesterday because he received too much insulin within too short period of time, two doses of short acting insulin should be by at least 4 hours. In addition, meal time Novolog dose should never be given AFTER meal! This will lead to hypoglycemia. Plan: I have discussed with both nursing staff and house staff. Patient need to eat a meal right now to prevent hypoglycemia. Recheck blood glucose by 2 PM and use bedtime sliding scale at that time. Do not provide any food until 7PM. Check blood glucose at 7PM (right before dinner) and use mealtime sliding scale. Check glucose at 11PM and use bedtime sliding scale. I would recommend all Novolog orders in the future should be into orders for meals and orders for sliding scale, instead of sliding scale for meals and sliding scale for bedtime, as this can lead to confusion. I have discussed his insulin need with patient's nurse practitioner Ana Luisa Escudero at [place]. She will make an appointment with him once he is discharged Patient can resume insulin pump 20 hours after the last dose of Levemir. Subjective Subjective: Yesterday morning, patient received a total of 33 units of Novolog within 2 hours, and developed hypoglycemia in the afternoon. This morning, he received 17 units of Novolog 2 hours after breakfast. Objective Last 24 Hrs of Vital Signs/I&O Vital Signs Date Time Temp Pulse Resp B/P B/P Pulse O2 O2 Flow FiO2 Mean Ox Delivery Rate 03/11 0837 92 Nasal 1.0L Cannula 03/11 0700 97.5 68 18 122/67 95 Room Air 03/11 0100 79 98 03/11 0000 CPAP 2.0L 03/10 2235 78 98 03/10 2210 97.5 77 20 129/70 94 Nasal 2.0L Cannula 03/10 1950 96 Nasal 2.0L Cannula 03/10 1600 Nasal 2.0L Cannula 03/10 1427 98.4 85 18 122/72 95 Nasal 2.0L Cannula 03/10 1200 95 Nasal 2.0L Cannula 03/10 1045 80 22 160/80 95 Nasal 2.0L Cannula 03/10 1013 80 184/80 Intake & Output 03/11 1600 03/11 0800 03/11 0000 Intake Total 240 480 Output Total Balance 240 480 Intake, Oral 240 480
--- NOTE | 2018-03-11 13:34 | PN- Infect Dx ---
Subjective Subjective: T-max 100. He feels improved with decreased congestion and sore throat. He still notes mild cough. He apparently had 2 hypoglycemic episode yesterday afternoon related to inadvertently high doses of insulin. Objective Last 24 Hrs of Vital Signs/I&O Vital Signs Date Time Temp Pulse Resp B/P B/P Pulse O2 O2 Flow FiO2 Mean Ox Delivery Rate 03/11 1012 68 122/67 03/11 0955 68 122/67 03/11 0837 92 Nasal 1.0L Cannula 03/11 0700 97.5 68 18 122/67 95 Room Air 03/11 0100 79 98 03/11 0000 CPAP 2.0L 03/10 2235 78 98 03/10 2210 97.5 77 20 129/70 94 Nasal 2.0L Cannula 03/10 1950 96 Nasal 2.0L Cannula 03/10 1600 Nasal 2.0L Cannula 03/10 1427 98.4 85 18 122/72 95 Nasal 2.0L Cannula Intake & Output 03/11 1600 03/11 0800 03/11 0000 Intake Total 240 480 Output Total Balance 240 480 Intake, Oral 240 480 Physical Exam Other Physical Findings: He appears more comfortable in no acute distress HEENT decreased conjunctival injection; no pharyngeal erythema or sinus tenderness Lungs are clear Heart regular rhythm without murmur Results Last 24 Hours of Lab Results: Laboratory Tests 03/11 0636 Chemistry Sodium (137 - 145 mmol/L) 138 Potassium (3.5 - 5.1 mmol/L) 4.4 Chloride (98 - 107 mmol/L) 101 Carbon Dioxide (22 - 30 mmol/L) 32 H Anion Gap (5 - 16) 5 BUN (9 - 20 mg/dL) 10 Creatinine (0.7 - 1.2 mg/dL) 1.0 Estimated GFR (>60 ml/min) > 60 BUN/Creatinine Ratio (7 - 25 %) 10.0 Hematology CBC w Diff NO MAN DIFF REQ WBC (4.8 - 10.8 /CUMM) 4.2 L RBC (4.70 - 6.10 /CUMM) 3.55 L Hgb (14.0 - 18.0 G/DL) 11.5 L Hct (42 - 52 %) 33.5 L MCV (80.0 - 94.0 FL) 94.5 H MCH (27.0 - 31.0 PG) 32.5 H MCHC (33.0 - 37.0 G/DL) 34.4 RDW (11.5 - 14.5 %) 14.0 Plt Count (130 - 400 /CUMM) 175 MPV (7.4 - 10.4 FL) 9.3 Gran % (42.2 - 75.2 %) 58.7 Lymphocytes % (20.5 - 51.1 %) 26.0 Monocytes % (1.7 - 9.3 %) 10.1 H Eosinophils % (0 - 5 %) 4.8 Basophils % (0.0 - 2.0 %) 0.4 Absolute Granulocytes (1.4 - 6.5 /CUMM) 2.5 Absolute Lymphocytes (1.2 - 3.4 /CUMM) 1.1 L Absolute Monocytes (0.10 - 0.60 /CUMM) 0.4 Absolute Eosinophils (0.0 - 0.7 /CUMM) 0.2 Absolute Basophils (0.0 - 0.2 /CUMM) 0 Last 24 Hours of John Results: Blood cultures x 2 March 07/March 08 negative Assessment/Plan ID Impression: Overall improved, with no further fevers since yesterday morning and with his white blood cell count remaining normal, now on Augmentin, Day 2 of treatment for a possible sinusitis, given his complaints of nasal congestion and cough and with his CT and MRI of the head revealing maxillary sinusitis. Suggestion: 1. Continue Augmentin to complete a 5 day course of treatment
[2018-03-11 14:13] VITALS: BP 112/65
--- NOTE | 2018-03-11 15:24 | Patient Discharge Instructions ---
Discharge Instructions General Discharge Information You were seen/treated for: Syncope Hypoglycemia Hypothermia Sinusitis Special Instructions: 1. Please follow up with your Endocrine specialist for the diabetes management. 2. Please schedule an appointment with your PCP within a week of your discharge. 3.Please report to the ED immediately if you experience sweating, dizziness, excessive nausea or vomiting, fever or chills. Acute Coronary Syndrome Inclusion Criteria At DC or during hospital stay patient has or had the following: ACS DIAGNOSIS No Discharge Core Measures Meds if any: Prescribed or Continued at Discharge Meds if any: NOT Prescribed or Continued at Discharge Congestive Heart Failure Inclusion Criteria At DC or during hospital stay patient has or had the following: CHF DIAGNOSIS No Discharge Core Measures Meds if any: Prescribed or Continued at Discharge Meds if any: NOT Prescribed or Continued at Discharge Cerebrovascular accident Inclusion Criteria At DC or during hospital stay patient has or had the following: CVA/TIA Diagnosis No Discharge Core Measures Meds if any: Prescribed or Continued at Discharge Meds if any: NOT Prescribed or Continued at Discharge Venous thromboembolism Inclusion Criteria VTE Diagnosis No VTE Type NONE VTE Confirmed by (Test) NONE Discharge Core Measures - Per Current guidelines, there needs to be overlap - treatment for the first 5 days of Warfarin therapy. - If discharged on Warfarin prior to 5 days of - overlap therapy, the patient will need to be - assessed for post discharge needs including - *Post discharge parental anticoagulation - *Warfarin and/or parental anticoagulation education - *Follow up date to check INR post discharge At least 5 days overlap therapy as Inpatient No Meds if any: Prescribed or Continued at Discharge Note: Overlap Therapy is Warfarin and Anticoagulant Meds if any: NOT Prescribed or Continued at Discharge
[2018-03-11] MEDS ORDERED: AUGMENTIN 875-1 EACH PO (15:42)
[2018-03-11] MEDS ORDERED: XANAX0.25 M1 PO (15:42)
== END 2018-03-11 17:33 | disposition home health service (06) | DRG 638 ==
LOC: ERH 18:46 → CRI 23:57 → ERHI 23:57 → 2NB 23:57 → ENRESERV 03-07 00:20 → EDBEDREQ 03-07 02:30 → CRI 03-07 03:09 → ENTRNSPT 03-09 16:36 → EDTRNSPT 03-09 17:02 → EDTRNSPTSTS 03-09 17:02 → CMPTRNSPT 03-09 17:05 → 2NB 03-09 17:41 → ENPENDDIS 03-10 10:57 → ENTRNSPT 03-11 17:08 → 2NB 03-11 17:33 → CMPTRNSPT 03-11 17:46
PROVIDERS: Hospitalist; Internal Medicine; Physician Assistant; Student in an Organized Health Care Education/Training Program
DX: E11.649 Type 2 diabetes mellitus with hypoglycemia without coma (principal); I69.351 Hemiplegia and hemiparesis following cerebral infarction affecting right dominant side; J98.11 Atelectasis; Z79.4 Long term (current) use of insulin; G20 Parkinson's disease; J32.0 Chronic maxillary sinusitis; Z99.81 Dependence on supplemental oxygen; I25.2 Old myocardial infarction; J44.9 Chronic obstructive pulmonary disease, unspecified; E87.5 Hyperkalemia; G47.33 Obstructive sleep apnea (adult) (pediatric); F03.90 Unspecified dementia, unspecified severity, without behavioral disturbance, psychotic disturbance, mood disturbance, and anxiety; R68.0 Hypothermia, not associated with low environmental temperature
CPT/HCPCS: 2NBP; 70551; 72149; CCU; ERO; 36415; 36592; 71045; 71046; 72158; 74177; 80307; 81003; 82436; 87040; 87070; 87450; 93005; 93010; 93306; 95816; 96374; 96375; A9579; J0131; J0610; J0696; J1644; J1815; J3490; J7060